=== PATIENT | female | born 1965 | race Caucasian/White ===

== ENCOUNTER 2018-01-27 10:25 | Outpatient (CLI) | payer OTHER ==
[~2018-01-27 10:25] MED LIST: ATE25T PO; ATOR20TA66 PO; BISA10SU60 RC; BUSP15TA12 PO; CALC-854 PO; CETI-194 PO; CHOL400T14 PO; CYCL-1 PO; ESOM20CA PO; HYDR-569 PO; LIDO700A5 TOP; MELA3TAB PO; MULT-785 PO; SUCR1ORA2 PO; VITC500T PO
[2018-01-27 11:30] LABS: CLARITY,URINE Clear (Clear); COLOR,URINE Yellow (Yellow); GLUCOSE, URINE Negative (Neg); KETONES,URINE Negative (Neg); LEUKOCYTE ESTERASE ,URINE Negative (Neg); NITRITES, URINE Negative (Neg); OCCULT BLOOD,URINE Negative (Neg); PH,URINE 7.5 (4.8-8.0); PROTEIN,URINE Negative (Neg); UROBILINOGEN,URINE 0.2 E.U/dL (0.2-1.0)
[2018-01-27 11:31] LABS: HEMOGLOBIN A1C 5.9 % (4.5-6.2)
[2018-01-27 11:35] LABS: ALANINE AMINOTRANSFERASE 31 U/L (12-78); ASPARTATE AMINO TRANSFERASE 18 U/L (10-37); CHOL/HDL RATIO 4.4 (0.00-4.99); CHOLESTEROL 169 MG/DL (0-200); HDL CHOLESTEROL 38 MG/DL (35-60); LDL CHOLESTEROL 101 MG/DL (50-100); TRIGLYCERIDES 259 MG/DL (20-135)
[2018-01-27 11:36] LABS: UA COLLECTION TYPE CLN CATCH MIDSTREAM
== END 2018-01-27 23:59 | disposition home or self-care (01) ==
LOC: LAB 10:25
PROVIDERS: ATTEND Family Medicine
DX: E78.2 Mixed hyperlipidemia (principal); I10 Essential (primary) hypertension; E83.52 Hypercalcemia; K76.89 Other specified diseases of liver; J44.9 Chronic obstructive pulmonary disease, unspecified; F17.200 Nicotine dependence, unspecified, uncomplicated; R73.09 Other abnormal glucose
CPT/HCPCS: 36415; 80061; 81003; 82306; 83036; 84450; 84460

== ENCOUNTER 2018-04-08 11:21 | Outpatient (CLI) | payer OTHER ==
[2018-04-08 12:14] LABS: ALANINE AMINOTRANSFERASE 38 U/L (12-78); ASPARTATE AMINO TRANSFERASE 22 U/L (10-37); CHOL/HDL RATIO 4.7 (0.00-4.99); CHOLESTEROL 183 MG/DL (0-200); HDL CHOLESTEROL 39 MG/DL (35-60); LDL CHOLESTEROL 109 MG/DL (50-100); TRIGLYCERIDES 209 MG/DL (20-135)
== END 2018-04-08 23:59 | disposition home or self-care (01) ==
LOC: LAB 11:21
PROVIDERS: ATTEND Family Medicine
DX: K76.89 Other specified diseases of liver (principal); E78.2 Mixed hyperlipidemia; F17.200 Nicotine dependence, unspecified, uncomplicated; I10 Essential (primary) hypertension; J44.9 Chronic obstructive pulmonary disease, unspecified; Z79.899 Other long term (current) drug therapy; Z90.710 Acquired absence of both cervix and uterus; Z88.0 Allergy status to penicillin; Z88.2 Allergy status to sulfonamides; Z88.8 Allergy status to other drugs, medicaments and biological substances
CPT/HCPCS: 36415; 80061; 84450; 84460

== ENCOUNTER 2018-11-14 10:59 | Outpatient (CLI) | payer OTHER ==
[~2018-11-14 10:59] MED LIST changes: +HYDR-4383 PO; -HYDR-569 PO
== END 2018-11-14 23:59 | disposition home or self-care (01) ==
LOC: RAD 10:59
PROVIDERS: ATTEND Family Medicine
DX: R06.02 Shortness of breath (principal); J44.9 Chronic obstructive pulmonary disease, unspecified; I10 Essential (primary) hypertension; Z90.710 Acquired absence of both cervix and uterus; Z79.899 Other long term (current) drug therapy; Z87.891 Personal history of nicotine dependence
CPT/HCPCS: 71046

== ENCOUNTER 2018-11-18 22:59 | Emergency (ER) | payer OTHER ==
[~2018-11-18] VITALS: Ht 172.7 cm; Wt 104.3 kg
[2018-11-18 23:19] VITALS: BP 158/92
== END 2018-11-19 00:19 | disposition home or self-care (01) ==
LOC: ER 22:59
DX: K13.79 Other lesions of oral mucosa (principal)
CPT/HCPCS: 99281

== ENCOUNTER 2019-01-01 11:14 | Outpatient (CLI) | payer OTHER ==
[2019-01-01 12:15] LABS: ALANINE AMINOTRANSFERASE 39 U/L (12-78); ALBUMIN 3.9 G/DL (3.4-5.0); ALBUMIN/GLOBULIN RATIO 1.2 (1.1-1.5); ALKALINE PHOSPHATASE 137 IU/L (46-116); ANION GAP 9 (8-16); ASPARTATE AMINO TRANSFERASE 20 U/L (10-37); BILIRUBIN,TOTAL 0.4 MG/DL (0.1-1.0); BLOOD UREA NITROGEN 15 MG/DL (7-18); BUN/CREATININE RATIO 22.7 (6.6-38.0); CALCIUM 9.1 MG/DL (8.5-10.1); CHLORIDE 105 MMOL/L (99-107); CHOL/HDL RATIO 4.1 (0.00-4.99); CHOLESTEROL 152 MG/DL (0-200); CREATININE 0.66 MG/DL (0.40-0.90); GLUCOSE 103 MG/DL (70-104); HDL CHOLESTEROL 37 MG/DL (35-60); LDL CHOLESTEROL 93 MG/DL (50-100); POTASSIUM 3.8 MMOL/L (3.5-5.1); SODIUM 140 MMOL/L (135-145); TOTAL CARBON DIOXIDE 26.1 MMOL/L (24-32); TOTAL PROTEIN 7.2 G/DL (6.4-8.2); TRIGLYCERIDES 176 MG/DL (20-135); eGFR > 90 ML/MIN
== END 2019-01-01 23:59 | disposition home or self-care (01) ==
LOC: LAB 11:14
PROVIDERS: ATTEND General Practice
DX: R78.5 Finding of other psychotropic drug in blood (principal); I10 Essential (primary) hypertension; J44.9 Chronic obstructive pulmonary disease, unspecified; Z87.891 Personal history of nicotine dependence
CPT/HCPCS: 36415; 80053; 80061

== ENCOUNTER 2019-05-06 07:56 | Day surgery (SDC) | payer OTHER ==
[2019-04-30 11:08] LABS: PRE OP HEMOGLOBIN 13.5 g/dL (12.0-16.0); RED BLOOD COUNT 4.57 X10'6 (4.20-5.60)
[2019-04-30 11:11] LABS: BASOPHILS # (AUTO) 0.1 X10'3 (0-0.2); EOSINOPHILS # (AUTO) 0.2 X10'3 (0-0.9); EOSINOPHILS % (AUTO) 2.9 % (0-6); LYMPHOCYTES # (AUTO) 2.8 X10'3 (1.1-4.8); LYMPHOCYTES % (AUTO) 35.5 % (21-51); MEAN CORPUSCULAR HEMOGLOBIN 29.4 PG (27.0-31.0); MEAN CORPUSCULAR HGB CONC 34.4 g/dL (33.0-36.5); MEAN CORPUSCULAR VOLUME 85.6 FL (78-98); MEAN PLATELET VOLUME 9.8 FL (7.4-10.4); MONOCYTES # (AUTO) 0.6 X10'3 (0-0.9); MONOCYTES % (AUTO) 8.3 % (2-12); NEUTROPHILS # (AUTO) 4.1 X10'3 (1.8-7.7); NEUTROPHILS % (AUTO) 52.3 % (42-75); PRE OP HEMATOCRIT 39.1 % (35.0-45.0); PRE OP PLATELET COUNT 235 X10'3 (140-440); RED CELL DISTRIBUTION WIDTH 14.3 % (11.5-14.5)
[2019-04-30 11:18] LABS: ALBUMIN 3.8 G/DL (3.4-5.0); ALBUMIN/GLOBULIN RATIO 1.1 (1.1-1.5); ALKALINE PHOSPHATASE 107 IU/L (46-116); BLOOD UREA NITROGEN 19 MG/DL (7-18); BUN/CREATININE RATIO 25.3 (6.6-38.0); CALCIUM 9.3 MG/DL (8.5-10.1); CHLORIDE 104 MMOL/L (99-107); CREATININE 0.75 MG/DL (0.40-0.90); PRE OP ALT 54 U/L (30-65); PRE OP ANION GAP 8 (8-16); PRE OP AST 29 U/L (10-37); PRE OP BILIRUB, TOTAL 0.4 MG/DL (0.0-1.0); PRE OP GLUCOSE 99 MG/DL (70-104); PRE OP POTASSIUM 4.1 MMOL/L (3.4-5.1); PRE OP SODIUM 141 MMOL/L (135-145); TOTAL PROTEIN 7.2 G/DL (6.4-8.2); eGFR 80 ML/MIN
[~2019-05-06] VITALS: Ht 172.7 cm; Wt 114.3 kg
[~2019-05-06 07:56] MED LIST changes: -BISA10SU60 RC; -CYCL-1 PO; -ESOM20CA PO; +FLUT16SP2 BOTHNARES; -HYDR-4383 PO; +IBUP-1986 PO; +LEVO75TA PO; -LIDO700A5 TOP; -MELA3TAB PO; +MELA3TAB64 PO; +OMEP-50 PO; -SUCR1ORA2 PO; +TRIA15OI9 TOP
[2019-05-06 08:00] VITALS: BP 130/83
[2019-05-06] MEDS ORDERED: DOCUMENT DATE & TIME OF BETA-BLOCKER PO ONE (11:15)
[2019-05-06] MEDS ORDERED: cefazolin/dext.iso 2gm/50ml 50 ML IV ONE (11:15)
[2019-05-06] MEDS ORDERED: ringers solution, lacted 1,000 ML IV SCH ×2 (11:15→12:51)
[2019-05-06] MEDS ORDERED: famotidine 20mg tablet PO ONE (11:15)
[2019-05-06] MEDS ORDERED: BUPIVAcaine/PF 2.5mg/ml (0.25%) 10ml vial ONE (11:16)
[2019-05-06] MEDS ORDERED: LIDOcaine 0.5% (5mg/ml) 50ml vial ONE (11:45)
[2019-05-06] MEDS ORDERED: fentaNYL/PF 50MCG/1 ML 2ML syringe ONE (11:46)
[2019-05-06] MEDS ORDERED: MIDAZolam 5mg/5ml vial ONE (12:01)
[2019-05-06] MEDS ORDERED: propofol inj 20 ML IV ONE (12:29)
[2019-05-06 12:31] VITALS: BP 130/70
--- NOTE | 2019-05-06 12:31 | NUR ---
Received from OR via FERNY, accompanied by Anesthesiologist DR LIANG and report given by Anesthesiologist. PT AWAKE, DENIES PAIN, LEFT HAND/WRIST W/DRSG, JULES WRAP, SOFT SPLINT COVERING INCISION, CDI. FIRE APPARATUS ENGINEER 1-2 SECONDS, FINGERS PWD. Addendum: 05/06/19 at 1408 by Mariaelena Pearce RN Amended: Links added.
[2019-05-06 12:41] VITALS: BP 135/72
[2019-05-06 12:51] VITALS: BP 122/61
[2019-05-06] MEDS ORDERED: meperidine/PF 25mg/ml syringe IV PRN ×3 (12:55)
[2019-05-06] MEDS ORDERED: proCHLORperazine 10 MG/2 ml inj IV PRN (12:55)
[2019-05-06] MEDS ORDERED: ondansetron/PF 4mg/2ml inj IV PRN (12:55)
[2019-05-06] MEDS ORDERED: morphine 4 MG/ML inj SYRINge IV PRN ×2 (12:55)
[2019-05-06 13:01] VITALS: BP 128/69
--- NOTE | 2019-05-06 13:11 | NUR ---
D/C INSTRUCTIONS GIVEN AND GONE OVER W/PT, PT VERBALIZES UNDERSTANDING, D/CD TO HOME VIA W/C TO PRIVATE VEHICLE W/O INCIDENT. Addendum: 05/06/19 at 1412 by Mariaelena Pearce RN Amended: Links added.
== END 2019-05-06 13:11 | disposition home or self-care (01) ==
LOC: PAS 07:56
PROVIDERS: ATTEND Orthopaedic Surgery
DX: G56.03 Carpal tunnel syndrome, bilateral upper limbs (principal); I10 Essential (primary) hypertension; F32.9 Major depressive disorder, single episode, unspecified; F41.9 Anxiety disorder, unspecified; K21.9 Gastro-esophageal reflux disease without esophagitis; E66.9 Obesity, unspecified; Z68.38 Body mass index [BMI] 38.0-38.9, adult; Z87.891 Personal history of nicotine dependence; Z88.0 Allergy status to penicillin; Z86.19 Personal history of other infectious and parasitic diseases; Z98.890 Other specified postprocedural states; Z90.49 Acquired absence of other specified parts of digestive tract; Z79.899 Other long term (current) drug therapy
CPT/HCPCS: 36415; 64721; 80053; 85025; 93005; J2001; J2250; J2704; J3010; J3490; A4215; A4618; A6449; A7000; J7120

== ENCOUNTER 2019-07-08 13:44 | Day surgery (SDC) | payer OTHER ==
[2019-07-02 15:11] LABS: BASOPHILS # (AUTO) 0.1 X10'3 (0-0.2); BASOPHILS % (AUTO) 1.1 % (0-1); EOSINOPHILS # (AUTO) 0.2 X10'3 (0-0.9); LYMPHOCYTES # (AUTO) 2.9 X10'3 (1.1-4.8); MEAN CORPUSCULAR HEMOGLOBIN 29.9 PG (27.0-31.0); MEAN CORPUSCULAR HGB CONC 34.5 g/dL (33.0-36.5); MEAN CORPUSCULAR VOLUME 86.9 FL (78-98); MEAN PLATELET VOLUME 9.6 FL (7.4-10.4); MONOCYTES # (AUTO) 0.6 X10'3 (0-0.9); MONOCYTES % (AUTO) 7.1 % (2-12); NEUTROPHILS % (AUTO) 56.8 % (42-75); PRE OP HEMATOCRIT 41.1 % (35.0-45.0); PRE OP HEMOGLOBIN 14.1 g/dL (12.0-16.0); PRE OP PLATELET COUNT 255 X10'3 (140-440); RED BLOOD COUNT 4.72 X10'6 (4.20-5.60)
[2019-07-02 15:28] LABS: ALBUMIN 3.9 G/DL (3.4-5.0); ALKALINE PHOSPHATASE 119 IU/L (46-116); BLOOD UREA NITROGEN 20 MG/DL (7-18); BUN/CREATININE RATIO 27.8 (6.6-38.0); CALCIUM 8.7 MG/DL (8.5-10.1); CHLORIDE 104 MMOL/L (99-107); CREATININE 0.72 MG/DL (0.40-0.90); PRE OP ALT 38 U/L (30-65); PRE OP ANION GAP 8 (8-16); PRE OP BILIRUB, TOTAL 0.4 MG/DL (0.0-1.0); PRE OP POTASSIUM 4.1 MMOL/L (3.4-5.1); PRE OP SODIUM 138 MMOL/L (135-145); TOTAL PROTEIN 7.7 G/DL (6.4-8.2); eGFR 84 ML/MIN
[2019-07-02 15:29] LABS: PRE OP AST 20 U/L (10-37); PRE OP GLUCOSE 106 MG/DL (70-104)
[2019-07-02 15:30] LABS: PRE OP INR 0.9 INR; PRE OP PROTIME 9.9 SECONDS (9.0-12.0)
[~2019-07-08] VITALS: Ht 170.2 cm; Wt 115.1 kg
[~2019-07-08 13:44] MED LIST changes: +DOCUMENT DATE & TIME OF BETA-BLOCKER PO ONE; +ESTR0.5T PO; +albuterol 2.5 MG/3 ML nebule NEB ONE; +cefazolin/dext.iso 2gm/50ml 50 ML IV ONE; +famotidine 20mg tablet PO ONE; +ringers solution, lacted 1,000 ML IV ONE
[2019-07-08] MEDS ORDERED: ringers solution, lacted 1,000 ML IV SCH (14:07)
[2019-07-08] MEDS ORDERED: proCHLORperazine 10 MG/2 ml inj IV PRN (14:10)
[2019-07-08] MEDS ORDERED: morphine 4 MG/ML inj SYRINge IV PRN ×2 (14:10)
[2019-07-08] MEDS ORDERED: ondansetron/PF 4mg/2ml inj IV PRN (14:10)
[2019-07-08] MEDS ORDERED: meperidine/PF 25mg/ml syringe IV PRN ×3 (14:10)
[2019-07-08 14:43] VITALS: BP 115/55
[2019-07-08 14:54] VITALS: BP 115/55
[2019-07-08] MEDS ORDERED: BUPIVAcaine/PF 2.5 mg/ml (0.25%) 30ml vial ONE (16:08)
[2019-07-08] MEDS ORDERED: ceFAZolin 1000mg inj ONE (16:08)
[2019-07-08] MEDS ORDERED: MIDAZolam 5mg/5ml vial ONE ×2 (18:13→18:29)
[2019-07-08] MEDS ORDERED: fentaNYL/PF 50MCG/1 ML 2ML syringe ONE ×2 (18:13→18:27)
[2019-07-08] MEDS ORDERED: 0.9 % SODIUM CHLORIDE 10 ML VIAL ONE (18:22)
[2019-07-08] MEDS ORDERED: ketorolac trometh. 30mg/ml inj. ONE (18:22)
[2019-07-08] MEDS ORDERED: propofol inj 20 ML IV ONE (18:40)
[2019-07-08] MEDS ORDERED: LIDOcaine 1%/PF 5ML 10 MG/ML VIAL ONE (18:40)
[2019-07-08 18:51] VITALS: BP 147/96
--- NOTE | 2019-07-08 18:51 | NUR ---
Received from OR via FERNY , accompanied by Anesthesiologist NOY and report given by Anesthesiolgist. PATIENT WITH 20G PIV IN LEFT UE RUNNING LR AT 100. DENIES PAIN. + CAP REFILL TO RIGHT WRIST AREA. DONNED ICE UPON ARRIVAL AND HAD PATIENT ELEVATED RIGHT WRIST. PATIENT VSS AT THIS TIME. Addendum: 07/08/19 at 1904 by Sunny Driver RN, RN Amended: Links added.
[2019-07-08 19:01] VITALS: BP 154/67
[2019-07-08 19:11] VITALS: BP 136/68
--- NOTE | 2019-07-08 19:21 | NUR ---
ALL DC CRITERIA HAS BEEN MET. IV TAKEN OUT WITHOUT COMPLICATIONS. ALL INSTRUCTIONS COVERED AND ALL QUESTIONS ANSWERED. DRESSINGS CDI. OUT VIA WHEELCHAIR TO PERSONAL VEHICLE WHERE PATIENT WAS SECURED IN AND DRIVEN HOME BY FAMILY. SISTER STATES THAT SHE WILL BE WITH HER ALL NIGHT. ENCOURAGED ELEVATION OF WRIST ABOVE ELBOW AND ELBOW ABOVE HEART WHILE WIGGLING FINGERS FOR EDEMA CONTROL AND PAIN CONTROL. Addendum: 07/08/19 at 1935 by Sunny Driver RN, RN Amended: Links added.
== END 2019-07-08 19:21 | disposition home or self-care (01) ==
LOC: PAS 13:44
PROVIDERS: ATTEND Orthopaedic Surgery
DX: G56.01 Carpal tunnel syndrome, right upper limb (principal); J44.9 Chronic obstructive pulmonary disease, unspecified; I10 Essential (primary) hypertension; F41.9 Anxiety disorder, unspecified; G47.00 Insomnia, unspecified; F32.9 Major depressive disorder, single episode, unspecified; E03.9 Hypothyroidism, unspecified; K21.9 Gastro-esophageal reflux disease without esophagitis; E66.01 Morbid (severe) obesity due to excess calories; Z87.891 Personal history of nicotine dependence; Z90.49 Acquired absence of other specified parts of digestive tract; Z98.890 Other specified postprocedural states; Z88.0 Allergy status to penicillin; Z86.19 Personal history of other infectious and parasitic diseases; Z72.89 Other problems related to lifestyle; Z79.899 Other long term (current) drug therapy; Z79.01 Long term (current) use of anticoagulants
CPT/HCPCS: 36415; 64721; 80053; 82948; 85025; 85610; 85730; 94640; J0690; J1885; J2250; J2704; J3010; J3490; A4215; A4618; A6449; A7000; J7120

== ENCOUNTER 2019-08-05 12:05 | Outpatient (CLI) | payer MEDICAID ==
[~2019-08-05 12:05] MED LIST changes: -DOCUMENT DATE & TIME OF BETA-BLOCKER PO ONE; -albuterol 2.5 MG/3 ML nebule NEB ONE; -cefazolin/dext.iso 2gm/50ml 50 ML IV ONE; -famotidine 20mg tablet PO ONE; -ringers solution, lacted 1,000 ML IV ONE
== END 2019-08-05 23:59 | disposition home or self-care (01) ==
LOC: RAD 12:05
PROVIDERS: ATTEND Family Medicine
DX: M50.123 Cervical disc disorder at C6-C7 level with radiculopathy (principal); M25.78 Osteophyte, vertebrae; M48.02 Spinal stenosis, cervical region; J44.9 Chronic obstructive pulmonary disease, unspecified; I10 Essential (primary) hypertension; Z87.891 Personal history of nicotine dependence
CPT/HCPCS: 72050

== ENCOUNTER 2019-08-15 15:29 | Emergency (ER) | payer MEDICAID ==
[~2019-08-15] VITALS: Ht 170.2 cm; Wt 116.0 kg
[2019-08-15 15:38] VITALS: BP 175/91
[2019-08-15] MEDS ORDERED: ketorolac tromethamine 15mg/ml inj. IM ONE (16:25)
[2019-08-15] MEDS ORDERED: IBUP-1984 PO (16:27)
[2019-08-15] MEDS ORDERED: CYCL-1 PO (16:27)
== END 2019-08-15 16:53 | disposition home or self-care (01) ==
LOC: ER 15:30
DX: M54.5 Low back pain (principal); E78.00 Pure hypercholesterolemia, unspecified; I10 Essential (primary) hypertension; J44.9 Chronic obstructive pulmonary disease, unspecified; G89.29 Other chronic pain; F41.9 Anxiety disorder, unspecified; Z90.49 Acquired absence of other specified parts of digestive tract; Z90.710 Acquired absence of both cervix and uterus; Z98.890 Other specified postprocedural states; Z60.2 Problems related to living alone; Z88.0 Allergy status to penicillin; Z88.2 Allergy status to sulfonamides; Z88.8 Allergy status to other drugs, medicaments and biological substances; Z79.899 Other long term (current) drug therapy
CPT/HCPCS: 96372; 99283; J1885

== ENCOUNTER 2019-10-15 18:05 | Emergency (ER) | payer MEDICAID ==
[~2019-10-15] VITALS: Ht 172.7 cm; Wt 115.0 kg
[~2019-10-15 18:05] MED LIST changes: +CYCL-1 PO
[2019-10-15 19:28] VITALS: BP 151/81
== END 2019-10-15 19:29 | disposition home or self-care (01) ==
LOC: ER 18:06 → MERGE 18:06 → ER 19:29
DX: S80.02XA Contusion of left knee, initial encounter (principal); J44.9 Chronic obstructive pulmonary disease, unspecified; Z87.891 Personal history of nicotine dependence; W01.10XA Fall on same level from slipping, tripping and stumbling with subsequent striking against unspecified object, initial encounter; Y93.01 Activity, walking, marching and hiking; Y92.89 Other specified places as the place of occurrence of the external cause; Y99.8 Other external cause status
CPT/HCPCS: 73564; 73590; 99284

== ENCOUNTER 2019-12-23 16:52 | Outpatient (CLI) | payer OTHER ==
[~2019-12-23 16:52] MED LIST changes: +MELA3TAB39 PO; -MELA3TAB64 PO
== END 2019-12-23 23:59 | disposition home or self-care (01) ==
LOC: RAD 16:52
PROVIDERS: ATTEND Family Medicine
DX: M47.22 Other spondylosis with radiculopathy, cervical region (principal); M48.02 Spinal stenosis, cervical region
CPT/HCPCS: 72141

== ENCOUNTER 2020-01-05 15:02 | Outpatient (CLI) | payer OTHER ==
[2020-01-05 15:48] LABS: BASOPHILS # (AUTO) 0.1 X10'3 (0-0.2); BASOPHILS % (AUTO) 1.1 % (0-1); EOSINOPHILS # (AUTO) 0.2 X10'3 (0-0.9); EOSINOPHILS % (AUTO) 1.9 % (0-6); HEMATOCRIT 40.7 % (35.0-45.0); HEMOGLOBIN 13.6 g/dl (12.0-16.0); LYMPHOCYTES % (AUTO) 35.6 % (21-51); MEAN CORPUSCULAR HEMOGLOBIN 28.9 PG (27.0-31.0); MEAN CORPUSCULAR HGB CONC 33.5 g/dL (33.0-36.5); MEAN CORPUSCULAR VOLUME 86.2 FL (78-98); MEAN PLATELET VOLUME 10.1 FL (7.4-10.4); MONOCYTES # (AUTO) 0.5 X10'3 (0-0.9); MONOCYTES % (AUTO) 6.3 % (2-12); NEUTROPHILS # (AUTO) 4.6 X10'3 (1.8-7.7); NEUTROPHILS % (AUTO) 55.1 % (42-75); PLATELET COUNT 239 X10'3 (140-440); RED BLOOD COUNT 4.72 X10'6 (4.20-5.60); WHITE BLOOD COUNT 8.3 X10'3 (4.5-11.0)
[2020-01-05 16:14] LABS: C-REACTIVE PROTEIN 0.1 MG/DL (0.0-0.5)
== END 2020-01-05 23:59 | disposition home or self-care (01) ==
LOC: LAB 15:02
PROVIDERS: ATTEND Family Medicine
DX: M47.816 Spondylosis without myelopathy or radiculopathy, lumbar region (principal)
CPT/HCPCS: 36415; 84439; 84443; 85025; 85651; 86140

== ENCOUNTER 2020-01-11 16:45 | Outpatient (CLI) | payer OTHER | END 2020-01-11 23:59 | disposition home or self-care (01) | LOC: LAB 16:45 | PROVIDERS: ATTEND Family Medicine | DX: Z00.00 Encounter for general adult medical examination without abnormal findings (principal); Z53.21 Procedure and treatment not carried out due to patient leaving prior to being seen by health care provider ==

== ENCOUNTER 2020-01-31 09:13 | Emergency (ER) | payer OTHER ==
[~2020-01-31] VITALS: Ht 172.7 cm; Wt 109.0 kg
[2020-01-31] MEDS ORDERED: normal saline 1000ML IV soln IVB ONE (10:10)
[2020-01-31] MEDS ORDERED: ondansetron/PF 4mg/2ml inj IV ONE (10:10)
[2020-01-31 10:19] LABS: CLARITY,URINE CLOUDY (Clear); COLOR,URINE YELLOW (Yellow); GLUCOSE, URINE NEGATIVE (Neg); KETONES,URINE NEGATIVE (Neg); LEUKOCYTE ESTERASE ,URINE NEGATIVE (Neg); NITRITES, URINE NEGATIVE (Neg); OCCULT BLOOD,URINE NEGATIVE (Neg); PH,URINE 5.5 (4.8-8.0); PROTEIN,URINE NEGATIVE (Neg); UROBILINOGEN,URINE 0.2 E.U/dL (0.2-1.0)
[2020-01-31 10:23] LABS: UA COLLECTION TYPE CLN CATCH MIDSTREAM
[2020-01-31 10:31] LABS: BACTERIA,URINE 4+ /HPF (Neg); MUCUS STRANDS FEW /LPF (Neg); RBC,URINE 0-2 /HPF (0-2); SQUAMOUS EPITHELIAL CELL,UR MANY /LPF (FEW); WBC,URINE 0-4 /HPF (0-4)
[2020-01-31 10:42] LABS: BASOPHILS # (AUTO) 0.1 X10'3 (0-0.2); BASOPHILS % (AUTO) 0.8 % (0-1); EOSINOPHILS # (AUTO) 0.2 X10'3 (0-0.9); HEMATOCRIT 44.1 % (35.0-45.0); HEMOGLOBIN 14.6 g/dl (12.0-16.0); LYMPHOCYTES # (AUTO) 3.2 X10'3 (1.1-4.8); LYMPHOCYTES % (AUTO) 39.9 % (21-51); MEAN CORPUSCULAR HEMOGLOBIN 28.7 PG (27.0-31.0); MEAN CORPUSCULAR HGB CONC 33.2 g/dL (33.0-36.5); MEAN CORPUSCULAR VOLUME 86.6 FL (78-98); MONOCYTES # (AUTO) 0.6 X10'3 (0-0.9); MONOCYTES % (AUTO) 7.7 % (2-12); NEUTROPHILS % (AUTO) 49.6 % (42-75); PLATELET COUNT 273 X10'3 (140-440); RED BLOOD COUNT 5.09 X10'6 (4.20-5.60); RED CELL DISTRIBUTION WIDTH 13.8 % (11.5-14.5)
[2020-01-31 10:54] LABS: ALANINE AMINOTRANSFERASE 44 U/L (12-78); ALBUMIN 3.6 G/DL (3.4-5.0); ALKALINE PHOSPHATASE 108 IU/L (46-116); ANION GAP 9 (8-16); ASPARTATE AMINO TRANSFERASE 23 U/L (10-37); BILIRUBIN,TOTAL 0.4 MG/DL (0.1-1.0); BLOOD UREA NITROGEN 18 MG/DL (7-18); BUN/CREATININE RATIO 21.7 (6.6-38.0); CALCIUM 8.6 MG/DL (8.5-10.1); CHLORIDE 106 MMOL/L (99-107); CREATININE 0.83 MG/DL (0.40-0.90); GLUCOSE 107 MG/DL (70-104); LIPASE 86 U/L (73-393); POTASSIUM 4.3 MMOL/L (3.5-5.1); SODIUM 141 MMOL/L (135-145); TOTAL CARBON DIOXIDE 26.5 MMOL/L (24-32); TOTAL PROTEIN 7.1 G/DL (6.4-8.2); eGFR 71 ML/MIN
[2020-01-31] MEDS ORDERED: ONDA8TAB13 PO (11:17)
[2020-01-31 11:28] VITALS: BP 120/67
== END 2020-01-31 11:29 | disposition home or self-care (01) ==
LOC: EEVIPCON 09:13 → ER 09:13
DX: R11.2 Nausea with vomiting, unspecified (principal); R10.84 Generalized abdominal pain; E78.00 Pure hypercholesterolemia, unspecified; I10 Essential (primary) hypertension; J44.9 Chronic obstructive pulmonary disease, unspecified; G89.29 Other chronic pain; F41.9 Anxiety disorder, unspecified; Z90.49 Acquired absence of other specified parts of digestive tract; Z90.710 Acquired absence of both cervix and uterus; Z98.890 Other specified postprocedural states; Z60.2 Problems related to living alone; Z87.891 Personal history of nicotine dependence; Z88.0 Allergy status to penicillin; Z79.899 Other long term (current) drug therapy; Z88.8 Allergy status to other drugs, medicaments and biological substances
CPT/HCPCS: 36415; 74176; 80053; 81001; 83690; 85025; 96374; 99284; J2405; J7030

== ENCOUNTER 2020-02-09 15:20 | Outpatient (CLI) | payer OTHER ==
[~2020-02-09 15:20] MED LIST changes: +ONDA8TAB13 PO
[2020-02-09 15:54] LABS: BASOPHILS # (AUTO) 0.1 X10'3 (0-0.2); BASOPHILS % (AUTO) 1.2 % (0-1); EOSINOPHILS # (AUTO) 0.2 X10'3 (0-0.9); EOSINOPHILS % (AUTO) 2.6 % (0-6); HEMATOCRIT 40.1 % (35.0-45.0); HEMOGLOBIN 13.3 g/dl (12.0-16.0); LYMPHOCYTES # (AUTO) 2.5 X10'3 (1.1-4.8); LYMPHOCYTES % (AUTO) 34.3 % (21-51); MEAN CORPUSCULAR HEMOGLOBIN 28.8 PG (27.0-31.0); MEAN CORPUSCULAR HGB CONC 33.2 g/dL (33.0-36.5); MEAN CORPUSCULAR VOLUME 86.6 FL (78-98); MEAN PLATELET VOLUME 9.6 FL (7.4-10.4); MONOCYTES # (AUTO) 0.6 X10'3 (0-0.9); NEUTROPHILS # (AUTO) 3.9 X10'3 (1.8-7.7); NEUTROPHILS % (AUTO) 53.9 % (42-75); PLATELET COUNT 263 X10'3 (140-440); RED BLOOD COUNT 4.63 X10'6 (4.20-5.60); RED CELL DISTRIBUTION WIDTH 13.8 % (11.5-14.5); WHITE BLOOD COUNT 7.3 X10'3 (4.5-11.0)
[2020-02-09 16:03] LABS: ALANINE AMINOTRANSFERASE 37 U/L (12-78); ALBUMIN 3.6 G/DL (3.4-5.0); ALBUMIN/GLOBULIN RATIO 1.2 (1.1-1.5); ALKALINE PHOSPHATASE 95 IU/L (46-116); ANION GAP 9 (8-16); ASPARTATE AMINO TRANSFERASE 17 U/L (10-37); BILIRUBIN,TOTAL 0.2 MG/DL (0.1-1.0); BLOOD UREA NITROGEN 27 MG/DL (7-18); BUN/CREATININE RATIO 34.6 (6.6-38.0); C-REACTIVE PROTEIN 0.24 MG/DL (0.0-0.5); CALCIUM 8.7 MG/DL (8.5-10.1); CHLORIDE 107 MMOL/L (99-107); CHOL/HDL RATIO 8.4 (0.00-4.99); CHOLESTEROL 234 MG/DL (0-200); CREATININE 0.78 MG/DL (0.40-0.90); GLUCOSE 99 MG/DL (70-104); HDL CHOLESTEROL 28 MG/DL (35-60); LDL CHOLESTEROL 136 MG/DL (50-100); POTASSIUM 3.8 MMOL/L (3.5-5.1); SODIUM 142 MMOL/L (135-145); TOTAL CARBON DIOXIDE 25.8 MMOL/L (24-32); TOTAL PROTEIN 6.7 G/DL (6.4-8.2); TRIGLYCERIDES 498 MG/DL (20-135); eGFR 76 ML/MIN
== END 2020-02-09 23:59 | disposition home or self-care (01) ==
LOC: LAB 15:20
PROVIDERS: ATTEND Family Medicine
DX: E78.5 Hyperlipidemia, unspecified (principal); M54.2 Cervicalgia; I10 Essential (primary) hypertension; M47.816 Spondylosis without myelopathy or radiculopathy, lumbar region
CPT/HCPCS: 36415; 80053; 80061; 85025; 86140

== ENCOUNTER 2020-04-21 15:06 | Outpatient (CLI) | payer BC ==
[2020-04-21 16:25] LABS: ALANINE AMINOTRANSFERASE 31 U/L (12-78); ALBUMIN 3.7 G/DL (3.4-5.0); ALBUMIN/GLOBULIN RATIO 1.2 (1.1-1.5); ALKALINE PHOSPHATASE 93 IU/L (46-116); ANION GAP 7 (8-16); ASPARTATE AMINO TRANSFERASE 18 U/L (10-37); BILIRUBIN,TOTAL 0.3 MG/DL (0.1-1.0); BLOOD UREA NITROGEN 16 MG/DL (7-18); BUN/CREATININE RATIO 19.5 (6.6-38.0); CALCIUM 8.7 MG/DL (8.5-10.1); CHLORIDE 105 MMOL/L (99-107); CHOL/HDL RATIO 4.6 (0.00-4.99); CHOLESTEROL 157 MG/DL (0-200); CREATININE 0.82 MG/DL (0.40-0.90); GLUCOSE 93 MG/DL (70-104); HDL CHOLESTEROL 34 MG/DL (35-60); LDL CHOLESTEROL 92 MG/DL (50-100); POTASSIUM 3.9 MMOL/L (3.5-5.1); SODIUM 139 MMOL/L (135-145); TOTAL CARBON DIOXIDE 27.1 MMOL/L (24-32); TOTAL PROTEIN 6.8 G/DL (6.4-8.2); TRIGLYCERIDES 265 MG/DL (20-135); eGFR 72 ML/MIN
== END 2020-04-21 23:59 | disposition home or self-care (01) ==
LOC: LAB 15:06
PROVIDERS: ATTEND Family Medicine
DX: I10 Essential (primary) hypertension (principal); E78.5 Hyperlipidemia, unspecified
CPT/HCPCS: 36415; 80053; 80061

== ENCOUNTER 2020-08-31 15:30 | Outpatient (CLI) | payer BC ==
[2020-08-31 16:27] LABS: ALANINE AMINOTRANSFERASE 33 U/L (12-78); ALBUMIN 3.7 G/DL (3.4-5.0); ALBUMIN/GLOBULIN RATIO 1.1 (1.1-1.5); ALKALINE PHOSPHATASE 91 IU/L (46-116); ANION GAP 6 (8-16); ASPARTATE AMINO TRANSFERASE 19 U/L (10-37); BILIRUBIN,TOTAL 0.3 MG/DL (0.1-1.0); BLOOD UREA NITROGEN 20 MG/DL (7-18); BUN/CREATININE RATIO 22.2 (6.6-38.0); CALCIUM 8.7 MG/DL (8.5-10.1); CHLORIDE 104 MMOL/L (99-107); CHOL/HDL RATIO 4.7 (0.00-4.99); CHOLESTEROL 166 MG/DL (0-200); GLUCOSE 104 MG/DL (70-104); HDL CHOLESTEROL 35 MG/DL (35-60); LDL CHOLESTEROL 101 MG/DL (50-100); POTASSIUM 3.8 MMOL/L (3.5-5.1); SODIUM 140 MMOL/L (135-145); TOTAL CARBON DIOXIDE 30.1 MMOL/L (24-32); TRIGLYCERIDES 361 MG/DL (20-135); eGFR 65 ML/MIN
== END 2020-08-31 23:59 | disposition home or self-care (01) ==
LOC: LAB 15:30
PROVIDERS: ATTEND Family Medicine
DX: I10 Essential (primary) hypertension (principal); R04.2 Hemoptysis; R13.10 Dysphagia, unspecified; F43.21 Adjustment disorder with depressed mood; E78.5 Hyperlipidemia, unspecified
CPT/HCPCS: 36415; 71046; 80053; 80061; 83001

== ENCOUNTER 2020-11-22 07:06 | Day surgery (SDC) | payer BC ==
[~2020-11-22] VITALS: Ht 170.8 cm; Wt 109.1 kg
[2020-11-22 07:18] VITALS: BP 114/62
[2020-11-22] MEDS ORDERED: ATOR-2 PO (07:30)
[2020-11-22] MEDS ORDERED: BENZ-16 PO (07:34)
[2020-11-22] MEDS ORDERED: GABA300C PO (07:35)
[2020-11-22] MEDS ORDERED: DULO30CA52 PO (07:36)
[2020-11-22] MEDS ORDERED: TRAZ-251 PO (07:37)
[2020-11-22] MEDS ORDERED: LIDOcaine Viscous 15ml cup ONE (07:44)
[2020-11-22] MEDS ORDERED: MIDAZolam 1 MG/ML 5ML VIAL ONE (07:44)
[2020-11-22] MEDS ORDERED: fentaNYL/PF 50MCG/1 ML 2ML syringe ONE (07:44)
[2020-11-22 09:10] VITALS: BP 111/68
[2020-11-22 09:20] VITALS: BP 106/70
[2020-11-22 09:30] VITALS: BP 117/73
[2020-11-22 09:40] VITALS: BP 115/72
== END 2020-11-22 10:02 | disposition home or self-care (01) ==
LOC: GI LAB 07:06
PROVIDERS: ATTEND Internal Medicine Gastroenterology
DX: R10.13 Epigastric pain (principal); K52.9 Noninfective gastroenteritis and colitis, unspecified; K63.89 Other specified diseases of intestine; J44.9 Chronic obstructive pulmonary disease, unspecified; Z87.891 Personal history of nicotine dependence; Z86.19 Personal history of other infectious and parasitic diseases
CPT/HCPCS: 43239; 45380; 99152; 99153; J2250; J3010; J7040; A4620

== ENCOUNTER 2021-01-12 15:26 | Outpatient (CLI) | payer BC ==
[~2021-01-12 15:26] MED LIST changes: +ATOR-2 PO; -ATOR20TA66 PO; +BENZ-16 PO; -CYCL-1 PO; +DULO30CA52 PO; +GABA300C PO; -MELA3TAB39 PO; -ONDA8TAB13 PO; +TRAZ-251 PO
== END 2021-01-12 23:59 | disposition home or self-care (01) ==
LOC: 64 CT 15:26
PROVIDERS: ATTEND Family Medicine
DX: J44.9 Chronic obstructive pulmonary disease, unspecified (principal)
CPT/HCPCS: 71250

== ENCOUNTER 2021-01-30 08:17 | Outpatient (CLI) | payer BC ==
[2021-01-30 08:58] LABS: BASOPHILS # (AUTO) 0.1 X10'3 (0-0.2); BASOPHILS % (AUTO) 0.7 % (0-1); EOSINOPHILS # (AUTO) 0.2 X10'3 (0-0.9); EOSINOPHILS % (AUTO) 2.2 % (0-6); HEMATOCRIT 39.8 % (35.0-45.0); HEMOGLOBIN 13.4 g/dl (12.0-16.0); LYMPHOCYTES # (AUTO) 2.4 X10'3 (1.1-4.8); MEAN CORPUSCULAR HEMOGLOBIN 29.1 PG (27.0-31.0); MEAN CORPUSCULAR HGB CONC 33.6 g/dL (33.0-36.5); MEAN CORPUSCULAR VOLUME 86.7 FL (78-98); MEAN PLATELET VOLUME 9.5 FL (7.4-10.4); MONOCYTES # (AUTO) 0.6 X10'3 (0-0.9); NEUTROPHILS # (AUTO) 4.7 X10'3 (1.8-7.7); NEUTROPHILS % (AUTO) 59.1 % (42-75); PLATELET COUNT 275 X10'3 (140-440); RED BLOOD COUNT 4.59 X10'6 (4.20-5.60); RED CELL DISTRIBUTION WIDTH 13.7 % (11.5-14.5)
[2021-01-30 10:16] LABS: ALANINE AMINOTRANSFERASE 36 U/L (12-78); ALBUMIN 3.7 G/DL (3.4-5.0); ALKALINE PHOSPHATASE 94 IU/L (46-116); ANION GAP 8 (8-16); ASPARTATE AMINO TRANSFERASE 16 U/L (10-37); BILIRUBIN,TOTAL 0.3 MG/DL (0.1-1.0); BLOOD UREA NITROGEN 16 MG/DL (7-18); BUN/CREATININE RATIO 23.2 (6.6-38.0); C-REACTIVE PROTEIN 0.35 MG/DL (0.0-0.5); CALCIUM 9.1 MG/DL (8.5-10.1); CHLORIDE 105 MMOL/L (99-107); CHOL/HDL RATIO 4.9 (0.00-4.99); CHOLESTEROL 188 MG/DL (0-200); CREATINE KINASE 110 U/L (26-192); CREATININE 0.69 MG/DL (0.40-0.90); GLUCOSE 94 MG/DL (70-104); HDL CHOLESTEROL 38 MG/DL (35-60); LDL CHOLESTEROL 105 MG/DL (50-100); POTASSIUM 4.2 MMOL/L (3.5-5.1); SODIUM 140 MMOL/L (135-145); TOTAL CARBON DIOXIDE 27.4 MMOL/L (24-32); TOTAL PROTEIN 7.4 G/DL (6.4-8.2); TRIGLYCERIDES 281 MG/DL (20-135); eGFR 88 ML/MIN
== END 2021-01-30 23:59 | disposition home or self-care (01) ==
LOC: LAB 08:17
PROVIDERS: ATTEND Family Medicine
DX: I10 Essential (primary) hypertension (principal); M47.816 Spondylosis without myelopathy or radiculopathy, lumbar region; M54.2 Cervicalgia; F41.8 Other specified anxiety disorders; E03.9 Hypothyroidism, unspecified; E78.5 Hyperlipidemia, unspecified; M19.90 Unspecified osteoarthritis, unspecified site
CPT/HCPCS: 36415; 80053; 80061; 82550; 84439; 84443; 84550; 85025; 85651; 86140

== ENCOUNTER 2021-02-22 11:14 | Day surgery (SDC) | payer BC ==
[2021-02-22] VITALS (11 sets, daily range): BP systolic 97–144; BP diastolic 53–98
[~2021-02-22] VITALS: Ht 172.7 cm; Wt 109.0 kg
[2021-02-22] MEDS ORDERED: MIDAZolam 1mg/ml 10ml vial IV ONE (11:50)
[2021-02-22] MEDS ORDERED: fentaNYL/PF 50MCG/1 ML 2ML syringe IV ONE ×2 (11:50→16:00)
[2021-02-22] MEDS ORDERED: ALBU90AE (12:00)
[2021-02-22] MEDS ORDERED: SERT-434 PO (12:00)
[2021-02-22] MEDS ORDERED: FENO54TA PO (12:00)
[2021-02-22] MEDS ORDERED: MONT10TA32 PO (12:00)
[2021-02-22] MEDS ORDERED: VITAMIN B12 PO (12:02)
[2021-02-22] MEDS ORDERED: ACET-1025 PO (12:02)
[2021-02-22] MEDS ORDERED: albuterol 2.5 MG/3 ML nebule ONE (13:29)
[2021-02-22] MEDS ORDERED: racepinephrine 11.25mg/0.5ml nebule ONE (13:29)
[2021-02-22] MEDS ORDERED: epiNEPHrine 1 MG/ML 1 ml ampule **BRONCH ONLY ONE (13:29)
[2021-02-22] MEDS ORDERED: lidocaine 2% viscous 15 ML cup ***bronch room only MM ONE (13:30)
[2021-02-22] MEDS ORDERED: LIDOCAINE 4% (40MG/ML) topical solution 50ml **BRONCH ONLY ONE (13:30)
[2021-02-22] MEDS ORDERED: phenylephrine 1% Nasal spray (extra-strength) 15 ML bottle **bronch room NS ONE (13:30)
[2021-02-22] MEDS ORDERED: MIDAZolam 1 MG/ML 5ML VIAL ONE (14:00)
[2021-02-22] MEDS ORDERED: fentaNYL/PF 50MCG/1 ML 2ML syringe ONE ×3 (14:00→15:12)
--- NOTE | 2021-02-22 15:05 | NUR ---
POST SVN 2.5 MG ALBUTEROL NO SIGNIFICANT CHANGE POST TX, BS CLEAR, HR 70/69, RR 12/16, AND SPO2 97% ON R/A, THROUGH OUT BRONCH. HR 50-60, RR 10-16. Addendum: 02/22/21 at 1507 by Rafael Santos RT Amended: Links added.
== END 2021-02-22 16:15 | disposition home or self-care (01) ==
LOC: SSTAY O 11:14
PROVIDERS: ATTEND Internal Medicine Critical Care Medicine
DX: R04.2 Hemoptysis (principal); J98.09 Other diseases of bronchus, not elsewhere classified; C34.01 Malignant neoplasm of right main bronchus; E78.00 Pure hypercholesterolemia, unspecified; J43.9 Emphysema, unspecified; Z87.891 Personal history of nicotine dependence; Z79.899 Other long term (current) drug therapy; Z88.8 Allergy status to other drugs, medicaments and biological substances; Z88.0 Allergy status to penicillin; Z88.1 Allergy status to other antibiotic agents; Z98.890 Other specified postprocedural states; Z80.9 Family history of malignant neoplasm, unspecified
CPT/HCPCS: 31625; 31629; 94640; 99152; 99153; J0171; J2250; J3010; 31628; 94760

== ENCOUNTER 2021-03-24 06:27 | Inpatient (IN) | payer BC ==
[2021-03-23 10:41] LABS: BASOPHILS # (AUTO) 0.1 X10'3 (0-0.2); EOSINOPHILS # (AUTO) 0.2 X10'3 (0-0.9); EOSINOPHILS % (AUTO) 2.5 % (0-6); LYMPHOCYTES # (AUTO) 2.3 X10'3 (1.1-4.8); LYMPHOCYTES % (AUTO) 31.8 % (21-51); MEAN CORPUSCULAR HEMOGLOBIN 29.1 PG (27.0-31.0); MEAN CORPUSCULAR HGB CONC 33.5 g/dL (33.0-36.5); MEAN CORPUSCULAR VOLUME 86.6 FL (78-98); MONOCYTES # (AUTO) 0.6 X10'3 (0-0.9); MONOCYTES % (AUTO) 8.3 % (2-12); NEUTROPHILS # (AUTO) 4.2 X10'3 (1.8-7.7); NEUTROPHILS % (AUTO) 56.4 % (42-75); PRE OP HEMATOCRIT 40.9 % (35.0-45.0); PRE OP HEMOGLOBIN 13.7 g/dL (12.0-16.0); PRE OP PLATELET COUNT 262 X10'3 (140-440); RED BLOOD COUNT 4.73 X10'6 (4.20-5.60); RED CELL DISTRIBUTION WIDTH 13.5 % (11.5-14.5)
[2021-03-23 10:42] LABS: CLARITY,URINE SLIGHTLY CLOUDY (Clear); COLOR,URINE YELLOW (Yellow); GLUCOSE, URINE NEGATIVE (Neg); KETONES,URINE NEGATIVE (Neg); LEUKOCYTE ESTERASE ,URINE NEGATIVE (Neg); NITRITES, URINE NEGATIVE (Neg); OCCULT BLOOD,URINE NEGATIVE (Neg); PH,URINE 7.5 (4.8-8.0); PROTEIN,URINE NEGATIVE (Neg); UROBILINOGEN,URINE 0.2 E.U/dL (0.2-1.0)
[2021-03-23 10:47] LABS: UA COLLECTION TYPE CLN CATCH MIDSTREAM
[2021-03-23 10:51] LABS: MUCUS STRANDS FEW /LPF (Neg); SQUAMOUS EPITHELIAL CELL,UR FEW /LPF (FEW)
[2021-03-23 10:52] LABS: BACTERIA,URINE NONE SEEN /HPF (Neg); RBC,URINE 0-2 /HPF (0-2); WBC,URINE 0-4 /HPF (0-4)
[2021-03-23 10:53] LABS: PRE OP PROTIME 10.6 SECONDS (9.0-12.0)
[2021-03-23 11:05] LABS: ALBUMIN 4.1 G/DL (3.4-5.0); ALBUMIN/GLOBULIN RATIO 1.2 (1.1-1.5); ALKALINE PHOSPHATASE 95 IU/L (46-116); BLOOD UREA NITROGEN 11 MG/DL (7-18); BUN/CREATININE RATIO 14.9 (6.6-38.0); CALCIUM 8.8 MG/DL (8.5-10.1); CHLORIDE 104 MMOL/L (99-107); CREATININE 0.74 MG/DL (0.40-0.90); PRE OP ALT 33 U/L (30-65); PRE OP ANION GAP 10 (8-16); PRE OP AST 21 U/L (10-37); PRE OP BILIRUB, TOTAL 0.4 MG/DL (0.0-1.0); PRE OP GLUCOSE 93 MG/DL (70-104); PRE OP POTASSIUM 4.2 MMOL/L (3.4-5.1); PRE OP SODIUM 140 MMOL/L (135-145); TOTAL CARBON DIOXIDE 25.7 MMOL/L (24-32); TOTAL PROTEIN 7.6 G/DL (6.4-8.2); eGFR 81 ML/MIN
[~2021-03-24] VITALS: Ht 172.7 cm; Wt 106.8 kg
[2021-03-24] VITALS (20 sets, daily range): BP systolic 92–135; BP diastolic 43–78
[~2021-03-24 06:27] MED LIST changes: +ACET-1025 PO; +ALBU90AE IH; +ALPR0.5T8 PO; +CYAN100087 PO; +DOCUMENT DATE & TIME OF BETA-BLOCKER PO ONE; -DULO30CA52 PO; +FENO54TA PO; +MONT10TA32 PO; +SERT-434 PO; -TRIA15OI9 TOP; +clindamycin-Cleocin 900mg/D5W 50 ML IV ONE; +famotidine 20mg tablet PO ONE; +ringers solution, lacted 1,000 ML IV SCH
[2021-03-24] MEDS ORDERED: BUPIVACAINE liposomal/PF 13.3 MG/ML vial IM ONE (06:59)
[2021-03-24] MEDS ORDERED: LIDOcaine 1% (10mg/ml) 2ml vial ONE (06:59)
[2021-03-24] MEDS ORDERED: BUPIVAcaine/PF 2.5mg/ml (0.25%) 10ml vial ONE ×2 (07:00→13:39)
[2021-03-24] MEDS ORDERED: ipratropium/albuterol 3ml nebule NEB STA (07:41)
[2021-03-24] MEDS ORDERED: iohexol 300mg/ml 100ml inj. ONE (07:51)
[2021-03-24] MEDS ORDERED: fentaNYL /PF 50mcg/ml 5ml ampule ONE (09:10)
[2021-03-24] MEDS ORDERED: midazolam 1 mg/ML 2ml injection ONE (09:10)
[2021-03-24] MEDS ORDERED: LIDOcaine 2% (20mg/ml) 5ml vial ONE ×2 (09:12→15:31)
[2021-03-24] MEDS ORDERED: propofol inj 20 ML IV ONE ×2 (09:12→15:31)
[2021-03-24] MEDS ORDERED: rocuronium 10mg/ml inj IV ONE ×3 (09:13→10:03)
[2021-03-24] MEDS ORDERED: NORepinephrine 8mg/ 250ml NS 250 ML IV ONE (09:15)
[2021-03-24] MEDS ORDERED: meperidine/PF 25mg/ml syringe IV PRN ×2 (09:25)
[2021-03-24] MEDS ORDERED: ringers solution, lacted 1,000 ML IV SCH (09:25)
[2021-03-24] MEDS ORDERED: proCHLORperazine 10 MG/2 ml inj IV PRN (09:25)
[2021-03-24] MEDS ORDERED: morphine 2 MG/ML inj. syringe IV PRN (09:25)
[2021-03-24] MEDS ORDERED: morphine 4 MG/ML inj SYRINge IV PRN ×3 (09:25→16:00)
[2021-03-24] MEDS ORDERED: ondansetron/PF 4mg/2ml inj IV PRN ×2 (09:25→16:00)
[2021-03-24] MEDS ORDERED: glycopyrrolate 0.2mg/ml inj ONE (10:03)
[2021-03-24] MEDS ORDERED: sevoflurane 250ml liquid IH ONE (10:03)
[2021-03-24] MEDS ORDERED: ondansetron/PF 4mg/2ml inj ONE (10:03)
[2021-03-24] MEDS ORDERED: dexamethasone sod phosphate 10mg/ml inj ONE (10:03)
[2021-03-24] MEDS ORDERED: neostigmine methylsulfate 1 MG/ML 10ml vial ONE (10:03)
[2021-03-24] MEDS ORDERED: ePHEDrine 50MG/ML INJ. ONE (10:03)
[2021-03-24] MEDS ORDERED: NORepinephrine 1 mg/ml inj IV ONE (10:58)
[2021-03-24] MEDS ORDERED: naloxone 2mg/2ml inj 2 MG in normal saline 500ml IV soln 500 ML IV PRN (12:55)
[2021-03-24] MEDS ORDERED: morphine/PF injection 20 MG, BUPIVAcaine 0.5% inj/PF 250 MG in normal saline 250ml IV s... EPI SCH (12:55)
[2021-03-24] MEDS ORDERED: fentaNYL/PF 50MCG/1 ML 2ML syringe ONE (13:39)
[2021-03-24] MEDS ORDERED: sugammadex 200mg/2ml injection IV ONE (15:31)
--- NOTE | 2021-03-24 15:40 | NUR ---
Received from OR via gurney, accompanied by Anesthesiologist and report given by Anesthesiologist. PATIENT WAKING UP,C/O PAIN RIGHT SIDE SEE EMAR- EPIDURAL STARTED AND INCREASED PER SURGEON, V/S WNL, 20G TO RUE, ART LINE LUE, F/C DRAINING CLEAR YELLOW URINE, CHEST TUBE TO RIGHT SIDE CDI AT 20CM SUCTION WITH 120CC IN DRAIN . SOME MILD BUBBLES WITH EXPIRATION. TRIPLE LUMEN CL RIGHT NECK. ABG REVIEWED BY DR MORA AND CXR. V/S STABLE, SCD ON.
[2021-03-24] MEDS ORDERED: acetaminophen 1,000mg/100ml IV 100 ML IV ONE (15:50)
[2021-03-24] MEDS ORDERED: HYDROcodone/acetaminophen 10/325mg tab PO PRN (16:00)
[2021-03-24] MEDS ORDERED: metoclopramide 5 mg/ml inj IV PRN (16:00)
[2021-03-24] MEDS ORDERED: naloxone 0.4 mg/ml inj IV PRN (16:00)
[2021-03-24] MEDS ORDERED: CADD PCA waste documentation MC PRN (16:00)
[2021-03-24] MEDS ORDERED: albuterol 2.5 MG/3 ML nebule NEB PRN (16:00)
[2021-03-24] MEDS ORDERED: potassium Cl 20mEq in D5-NS 1,000 ML IV SCH (16:00)
[2021-03-24 16:01] LABS: ABG BASE EXCESS -4.3 mmol/L (-2.0-2.0); ABG HCO3 22.9 mmol/L (22.0-26.0); ABG OXYGEN SATURATION 96.4 % (94-97); ABG PCO2 (T) 48.4 mmHg (32.0-45.0); ABG PO2 (T) 86.8 mmHg (75.0-100.0); FCOHb 0.3 % (0.0-3.9); FLOW 10 L/min; FMetHb 0.4 % (0.0-1.5); FO2Hb 95.7 % (94-97); PATIENT TEMPERATURE 36.1; TOTAL HEMOGLOBIN 13.9 G/dl (12.0-16.0)
[2021-03-24] MEDS: meperidine/PF 25mg/ml syringe IV PRN ×2 (16:01→16:13)
--- NOTE | 2021-03-24 16:50 | NUR ---
PATIENT A&OX4,,C/O PAIN AT TIMES RIGHT SIDE SEE EMAR- EPIDURAL TITRATED TO MAX DOSE, V/S WNL, 20G TO RUE, ART LINE LUE, F/C DRAINING CLEAR YELLOW URINE, CHEST TUBE TO RIGHT SIDE CDI AT 20CM SUCTION WITH 140CC IN DRAIN . SOME MILD BUBBLES WITH EXPIRATION. TRIPLE LUMEN CL RIGHT NECK. PATIENT TAKEN TO 2007 WITH ALL BELONGINGS AND HOOKED UP TO MONITORS IN ROOM AND REPORT GIVEN TO CICU RN WHO HAS TAKEN OVER PATIENT CARE.
--- NOTE | 2021-03-24 17:00 | NUR ---
received from PACU by bed S/P right middle lobectomy and R lower lobectomy. patient AAO x4 , appears in no acute distress. Chest tubes x2 lateral chest intact and to 20 cm suction with moderate amount of intermittent bubbling. Dressings CDI no bleeding noted on site. Samuels catheter intact with clear yellow urine.
[2021-03-24 17:10] LABS: ABG BASE EXCESS -3.8 mmol/L (-2.0-2.0); ABG HCO3 22.7 mmol/L (22.0-26.0); ABG PCO2 (T) 46.7 mmHg (32.0-45.0); ABG PO2 (T) 80.4 mmHg (75.0-100.0); FCOHb 0.1 % (0.0-3.9); FLOW 2 L/min; FMetHb 0.3 % (0.0-1.5); FO2Hb 94.6 % (94-97); PATIENT TEMPERATURE 36.9; TOTAL HEMOGLOBIN 13.6 G/dl (12.0-16.0)
--- NOTE | 2021-03-24 18:37 | NUR ---
Paged placed for Dr Aranda and he called back. Notified him of pneumothorax on right side per Dr Matias (radiologist) Also notified him of the presence of air leak on the chest tube, no new orders given
[2021-03-24] MEDS: gabapentin 300mg capsule PO SCH (21:16)
[2021-03-24] MEDS ORDERED: ketorolac trometh. 30mg/ml inj. IV PRN (22:15)
[2021-03-25] VITALS (23 sets, daily range): BP systolic 85–146; BP diastolic 35–92
[2021-03-25] MEDS ORDERED: acetylcysteine 200 MG/ml 4ml vial INH SCH
[2021-03-25] MEDS ORDERED: ketorolac trometh. 30mg/ml inj. IM SCH (02:00)
[2021-03-25 02:22] LABS: BASOPHILS % (AUTO) 0.2 % (0-1); EOSINOPHILS % (AUTO) 0 % (0-6); HEMATOCRIT 37.4 % (35.0-45.0); HEMOGLOBIN 12.3 g/dl (12.0-16.0); LYMPHOCYTES # (AUTO) 1.3 X10'3 (1.1-4.8); LYMPHOCYTES % (AUTO) 8.3 % (21-51); MEAN CORPUSCULAR HGB CONC 32.8 g/dL (33.0-36.5); MEAN CORPUSCULAR VOLUME 88.5 FL (78-98); MEAN PLATELET VOLUME 10.3 FL (7.4-10.4); MONOCYTES # (AUTO) 1.2 X10'3 (0-0.9); MONOCYTES % (AUTO) 8.2 % (2-12); NEUTROPHILS # (AUTO) 12.5 X10'3 (1.8-7.7); NEUTROPHILS % (AUTO) 83.3 % (42-75); PLATELET COUNT 271 X10'3 (140-440); RED BLOOD COUNT 4.22 X10'6 (4.20-5.60); RED CELL DISTRIBUTION WIDTH 13.8 % (11.5-14.5)
[2021-03-25 02:42] LABS: ALANINE AMINOTRANSFERASE 34 U/L (12-78); ALBUMIN 3.5 G/DL (3.4-5.0); ALBUMIN/GLOBULIN RATIO 1.1 (1.1-1.5); ALKALINE PHOSPHATASE 89 IU/L (46-116); ANION GAP 8 (8-16); ASPARTATE AMINO TRANSFERASE 40 U/L (10-37); BILIRUBIN,TOTAL 0.3 MG/DL (0.1-1.0); BLOOD UREA NITROGEN 21 MG/DL (7-18); BUN/CREATININE RATIO 17.9 (6.6-38.0); CALCIUM 7.4 MG/DL (8.5-10.1); CHLORIDE 105 MMOL/L (99-107); CREATININE 1.17 MG/DL (0.40-0.90); GLUCOSE 144 MG/DL (70-104); MAGNESIUM 1.9 MG/DL (1.5-2.4); PHOSPHORUS 4.6 MG/DL (2.3-4.5); POTASSIUM 5.8 MMOL/L (3.5-5.1); SODIUM 138 MMOL/L (135-145); TOTAL CARBON DIOXIDE 24.6 MMOL/L (24-32); TOTAL PROTEIN 6.7 G/DL (6.4-8.2); eGFR 48 ML/MIN
[2021-03-25] MEDS: albuterol 2.5 MG/3 ML nebule NEB SCH ×6 (02:45→23:11)
[2021-03-25] MEDS: acetylcysteine 200 MG/ml 4ml vial INH SCH ×5 (02:45→23:11)
[2021-03-25] MEDS ORDERED: albumin (Human) 5% 250ml 250 ML IV ONE ×2 (03:50)
[2021-03-25] MEDS: dextrose 5%-1/2 normal saline 1,000 ML IV SCH ×2 (04:52→16:12)
[2021-03-25] MEDS: gabapentin 300mg capsule PO SCH ×2 (08:49→20:47)
[2021-03-25] MEDS: HYDROcodone/acetaminophen 10/325mg tab PO PRN ×3 (11:35→23:33)
--- NOTE | 2021-03-25 17:25 | NUR ---
Called Dr Schmidt re: low grade temp - 38.1. Cooling measures in place. No new orders received. Asked for benadryl and throat lozanges per pt request - MD olivera'd
[2021-03-25] MEDS ORDERED: benzocaine/menthol oral lozeng 1 EACH BOX MM PRN (17:30)
[2021-03-25] MEDS ORDERED: ACETAMINOPHEN 650 MG PO PRN (18:20)
[2021-03-25] MEDS ORDERED: albuterol 2.5 MG/3 ML nebule NEB PRN (18:20)
[2021-03-25] MEDS ORDERED: ALPRAZolam 0.25mg tablet PO PRN (18:20)
[2021-03-25] MEDS: diphenhydrAMINE 25mg capsule PO PRN (20:44)
[2021-03-25] MEDS: fluticasone nasal spray 16GM bottle NS SCH (20:47)
[2021-03-25] MEDS: calcium carbonate/vitamin D3 tablet PO SCH (20:47)
[2021-03-25] MEDS: busPIRone 15mg tablet PO SCH (20:48)
[2021-03-25] MEDS: traZODone 50mg tablet PO SCH (20:49)
[2021-03-25] MEDS: montelukast 10mg tablet PO SCH (20:50)
[2021-03-25] MEDS: benzonatate 100mg capsule PO SCH (20:51)
[2021-03-25] MEDS: sertraline 50mg tablet PO SCH (20:51)
[2021-03-25] MEDS ORDERED: naloxone 0.4 mg/ml inj IV PRN (21:55)
[2021-03-25] MEDS ORDERED: CADD PCA waste documentation MC PRN (21:55)
[2021-03-26] VITALS (24 sets, daily range): BP systolic 98–138; BP diastolic 44–82
[2021-03-26] MEDS: HYDROmorph./NS 0.2 mg/ml CADD 100 ML IV SCH ×13 (03:16→23:00)
[2021-03-26] MEDS: albuterol 2.5 MG/3 ML nebule NEB SCH ×6 (03:55→23:12)
[2021-03-26] MEDS: acetylcysteine 200 MG/ml 4ml vial INH SCH ×6 (03:56→23:12)
[2021-03-26 04:23] LABS: BASOPHILS % (AUTO) 0.4 % (0-1); EOSINOPHILS # (AUTO) 0.1 X10'3 (0-0.9); EOSINOPHILS % (AUTO) 1.1 % (0-6); HEMATOCRIT 34.6 % (35.0-45.0); HEMOGLOBIN 11.5 g/dl (12.0-16.0); LYMPHOCYTES # (AUTO) 1.3 X10'3 (1.1-4.8); LYMPHOCYTES % (AUTO) 14.8 % (21-51); MEAN CORPUSCULAR HEMOGLOBIN 29.3 PG (27.0-31.0); MEAN CORPUSCULAR HGB CONC 33.2 g/dL (33.0-36.5); MEAN CORPUSCULAR VOLUME 88.3 FL (78-98); MEAN PLATELET VOLUME 10.2 FL (7.4-10.4); MONOCYTES # (AUTO) 0.9 X10'3 (0-0.9); MONOCYTES % (AUTO) 9.8 % (2-12); NEUTROPHILS # (AUTO) 6.7 X10'3 (1.8-7.7); NEUTROPHILS % (AUTO) 73.9 % (42-75); PLATELET COUNT 202 X10'3 (140-440); RED BLOOD COUNT 3.92 X10'6 (4.20-5.60); RED CELL DISTRIBUTION WIDTH 14.1 % (11.5-14.5); WHITE BLOOD COUNT 9.1 X10'3 (4.5-11.0)
[2021-03-26 04:46] LABS: ALANINE AMINOTRANSFERASE 29 U/L (12-78); ALBUMIN 3.1 G/DL (3.4-5.0); ALBUMIN/GLOBULIN RATIO 0.9 (1.1-1.5); ALKALINE PHOSPHATASE 82 IU/L (46-116); ANION GAP 7 (8-16); ASPARTATE AMINO TRANSFERASE 32 U/L (10-37); BILIRUBIN,TOTAL 0.5 MG/DL (0.1-1.0); BLOOD UREA NITROGEN 11 MG/DL (7-18); BUN/CREATININE RATIO 14.7 (6.6-38.0); CALCIUM 7.8 MG/DL (8.5-10.1); CHLORIDE 103 MMOL/L (99-107); CREATININE 0.75 MG/DL (0.40-0.90); GLUCOSE 152 MG/DL (70-104); MAGNESIUM 1.9 MG/DL (1.5-2.4); PHOSPHORUS 1.9 MG/DL (2.3-4.5); POTASSIUM 4.4 MMOL/L (3.5-5.1); SODIUM 137 MMOL/L (135-145); TOTAL CARBON DIOXIDE 26.7 MMOL/L (24-32); TOTAL PROTEIN 6.4 G/DL (6.4-8.2); eGFR 79 ML/MIN
--- NOTE | 2021-03-26 07:17 | NUR ---
Patient in room CICU 2007. I have received report from Houston AVENDANO and had the opportunity to ask questions and assume patient care.
[2021-03-26] MEDS: HYDROcodone/acetaminophen 10/325mg tab PO PRN (07:27)
[2021-03-26] MEDS: dextrose 5%-1/2 normal saline 1,000 ML IV SCH ×2 (08:19→17:20)
[2021-03-26] MEDS: fluticasone nasal spray 16GM bottle NS SCH ×2 (08:20→20:34)
[2021-03-26] MEDS: cetirizine 10mg tablet PO SCH ×2 (08:26→20:33)
[2021-03-26] MEDS: cyanocobalamin 500mcg tablet PO SCH (08:30)
[2021-03-26] MEDS: atenolol 50mg tablet PO SCH (08:30)
[2021-03-26] MEDS: ascorbic acid 500mg tablet PO SCH (08:30)
[2021-03-26] MEDS: calcium carbonate/vitamin D3 tablet PO SCH ×2 (08:30→20:34)
[2021-03-26] MEDS: multivitamins, therapeutics tablet PO SCH (08:30)
[2021-03-26] MEDS: pantoprazole 40mg Tablet.DR PO SCH (08:30)
[2021-03-26] MEDS: gabapentin 300mg capsule PO SCH ×3 (08:30→23:54)
[2021-03-26] MEDS: levoTHYROXINE 100mcg tablet PO SCH (08:31)
[2021-03-26] MEDS: benzonatate 100mg capsule PO SCH ×3 (08:31→20:34)
[2021-03-26] MEDS: cholecalciferol (vitamin D3) 1,000 unit (25mcg) tablet PO SCH (08:31)
[2021-03-26] MEDS: busPIRone 15mg tablet PO SCH ×3 (08:31→20:35)
[2021-03-26] MEDS: fenofibrate 48mg tablet PO SCH (08:32)
--- NOTE | 2021-03-26 10:37 | NUR ---
Dr. Ochoa at bedside and removed epidural. Bandaide applied to site.
[2021-03-26] MEDS ORDERED: docusate sod 100mg capsule PO ONE (11:15)
[2021-03-26] MEDS: acetaminophen 325mg tablet PO PRN (16:17)
--- NOTE | 2021-03-26 18:09 | NUR ---
Problems reprioritized. Patient report given, questions answered & plan of care reviewed with Bessy AVENDANO.
--- NOTE | 2021-03-26 19:00 | NUR ---
I have received report and assumed care of pt, Pt up in chair eating dinner without difficulties, HS cares complete, pts hair washed CVL dressing changed pt tolerated well
--- NOTE | 2021-03-26 19:35 | NUR ---
pt transferred back to bed with stand by assist without difficulties
[2021-03-26] MEDS: traZODone 50mg tablet PO SCH (20:34)
[2021-03-26] MEDS: docusate sod 100mg capsule PO SCH (20:34)
[2021-03-26] MEDS: sertraline 50mg tablet PO SCH (20:34)
[2021-03-26] MEDS: montelukast 10mg tablet PO SCH (20:47)
[2021-03-26] MEDS: diphenhydrAMINE 25mg capsule PO PRN (23:53)
[2021-03-27] VITALS (24 sets, daily range): BP systolic 92–136; BP diastolic 47–79
[2021-03-27] MEDS: dextrose 5%-1/2 normal saline 1,000 ML IV SCH ×2 (00:29→13:26)
[2021-03-27] MEDS: HYDROmorph./NS 0.2 mg/ml CADD 100 ML IV SCH ×4 (01:00→07:55)
[2021-03-27 02:36] LABS: BASOPHILS # (AUTO) 0.1 X10'3 (0-0.2); BASOPHILS % (AUTO) 0.7 % (0-1); EOSINOPHILS # (AUTO) 0.2 X10'3 (0-0.9); EOSINOPHILS % (AUTO) 2.5 % (0-6); HEMOGLOBIN 10.7 g/dl (12.0-16.0); LYMPHOCYTES # (AUTO) 1.5 X10'3 (1.1-4.8); LYMPHOCYTES % (AUTO) 18.8 % (21-51); MEAN CORPUSCULAR HEMOGLOBIN 29.3 PG (27.0-31.0); MEAN CORPUSCULAR HGB CONC 33.6 g/dL (33.0-36.5); MEAN CORPUSCULAR VOLUME 87.4 FL (78-98); MEAN PLATELET VOLUME 9.9 FL (7.4-10.4); MONOCYTES # (AUTO) 0.8 X10'3 (0-0.9); MONOCYTES % (AUTO) 10.3 % (2-12); NEUTROPHILS # (AUTO) 5.3 X10'3 (1.8-7.7); NEUTROPHILS % (AUTO) 67.7 % (42-75); PLATELET COUNT 199 X10'3 (140-440); RED BLOOD COUNT 3.66 X10'6 (4.20-5.60); RED CELL DISTRIBUTION WIDTH 14.3 % (11.5-14.5); WHITE BLOOD COUNT 7.9 X10'3 (4.5-11.0)
[2021-03-27 02:55] LABS: ALANINE AMINOTRANSFERASE 31 U/L (12-78); ALBUMIN 2.5 G/DL (3.4-5.0); ALBUMIN/GLOBULIN RATIO 0.7 (1.1-1.5); ALKALINE PHOSPHATASE 88 IU/L (46-116); ANION GAP 6 (8-16); ASPARTATE AMINO TRANSFERASE 21 U/L (10-37); BILIRUBIN,TOTAL 0.3 MG/DL (0.1-1.0); BLOOD UREA NITROGEN 9 MG/DL (7-18); BUN/CREATININE RATIO 14.3 (6.6-38.0); CALCIUM 8.5 MG/DL (8.5-10.1); CHLORIDE 108 MMOL/L (99-107); CREATININE 0.63 MG/DL (0.40-0.90); GLUCOSE 146 MG/DL (70-104); MAGNESIUM 1.8 MG/DL (1.5-2.4); PHOSPHORUS 2.3 MG/DL (2.3-4.5); POTASSIUM 4.1 MMOL/L (3.5-5.1); SODIUM 143 MMOL/L (135-145); TOTAL CARBON DIOXIDE 28.6 MMOL/L (24-32); eGFR > 90 ML/MIN
[2021-03-27] MEDS: albuterol 2.5 MG/3 ML nebule NEB SCH ×5 (03:12→20:25)
[2021-03-27] MEDS: acetylcysteine 200 MG/ml 4ml vial INH SCH ×6 (03:12→23:00)
[2021-03-27] MEDS: acetaminophen 325mg tablet PO PRN (06:57)
[2021-03-27] MEDS: gabapentin 300mg capsule PO SCH ×2 (08:08→18:28)
[2021-03-27] MEDS: docusate sod 100mg capsule PO SCH ×2 (08:08→20:46)
[2021-03-27] MEDS: fluticasone nasal spray 16GM bottle NS SCH ×2 (08:08→20:46)
[2021-03-27] MEDS: calcium carbonate/vitamin D3 tablet PO SCH ×2 (08:09→20:46)
[2021-03-27] MEDS: ascorbic acid 500mg tablet PO SCH (08:09)
[2021-03-27] MEDS: fenofibrate 48mg tablet PO SCH (08:09)
[2021-03-27] MEDS: pantoprazole 40mg Tablet.DR PO SCH (08:09)
[2021-03-27] MEDS: atenolol 50mg tablet PO SCH (08:09)
[2021-03-27] MEDS: cyanocobalamin 500mcg tablet PO SCH (08:09)
[2021-03-27] MEDS: busPIRone 15mg tablet PO SCH ×3 (08:09→22:13)
[2021-03-27] MEDS: multivitamins, therapeutics tablet PO SCH (08:10)
[2021-03-27] MEDS: cholecalciferol (vitamin D3) 1,000 unit (25mcg) tablet PO SCH (08:10)
[2021-03-27] MEDS: benzonatate 100mg capsule PO SCH ×3 (08:11→22:14)
--- NOTE | 2021-03-27 10:38 | NUR ---
Noted pt s/p R thoracotomy and bilobectomy this admit per MD note. Pt seen by FIOR for written/verbal high protein ed w/ RD contact information and Andrew/Ensure ONS coupons provided. Pt is agreeable to strawberry-banana andrew [place]; notified. Addendum: 03/27/21 at [address] Amended: Links added. Addendum: 03/27/21 at [address] Noted pt s/p R thoracotomy and bilobectomy this admit per MD note. Pt seen by FIOR for written/verbal high protein ed w/ RD contact information and Andrew/Ensure ONS coupons provided. Pt is agreeable to strawberry-banana andrew smoothie BIDBD; notified. Pt is on regular/EC7 diet has no lower teeth since currently having them re-done and only has upper dentures per pt; is agreeable to chopped meats for ease of PO. Dietary notified.
[2021-03-27] MEDS ORDERED: magnesium hydroxide 30ml (MOM) UD suspension PO PRN (17:55)
--- NOTE | 2021-03-27 18:26 | NUR ---
Patient in room CICU 2007. I have received report from Janine AVENDANO and had the opportunity to ask questions and assume patient care.
[2021-03-27] MEDS: montelukast 10mg tablet PO SCH (20:46)
[2021-03-27] MEDS: sertraline 50mg tablet PO SCH (20:46)
[2021-03-27] MEDS: cetirizine 10mg tablet PO SCH (20:46)
[2021-03-27] MEDS: traZODone 50mg tablet PO SCH (20:46)
--- NOTE | 2021-03-27 21:44 | NUR ---
Sent message to pharmacy to bring eddie marsh and nba as not stocked in omni and not in patient specific.
[2021-03-28] VITALS (20 sets, daily range): BP systolic 98–137; BP diastolic 49–76
[2021-03-28] MEDS: albuterol 2.5 MG/3 ML nebule NEB SCH ×7 (00:01→22:49)
[2021-03-28] MEDS: gabapentin 300mg capsule PO SCH ×3 (00:02→20:52)
[2021-03-28] MEDS: HYDROmorph./NS 0.2 mg/ml CADD 100 ML IV SCH ×9 (00:56→23:00)
[2021-03-28 02:58] LABS: BASOPHILS % (AUTO) 0.3 % (0-1); EOSINOPHILS # (AUTO) 0.2 X10'3 (0-0.9); EOSINOPHILS % (AUTO) 1.5 % (0-6); HEMATOCRIT 27.6 % (35.0-45.0); HEMOGLOBIN 9.1 g/dl (12.0-16.0); LYMPHOCYTES # (AUTO) 1.4 X10'3 (1.1-4.8); LYMPHOCYTES % (AUTO) 10.7 % (21-51); MEAN CORPUSCULAR HEMOGLOBIN 28.9 PG (27.0-31.0); MEAN CORPUSCULAR VOLUME 87.6 FL (78-98); MONOCYTES # (AUTO) 1.8 X10'3 (0-0.9); MONOCYTES % (AUTO) 13.4 % (2-12); NEUTROPHILS # (AUTO) 9.8 X10'3 (1.8-7.7); NEUTROPHILS % (AUTO) 74.1 % (42-75); PLATELET COUNT 172 X10'3 (140-440); RED BLOOD COUNT 3.15 X10'6 (4.20-5.60); RED CELL DISTRIBUTION WIDTH 15.7 % (11.5-14.5); WHITE BLOOD COUNT 13.2 X10'3 (4.5-11.0)
[2021-03-28 03:22] LABS: ALANINE AMINOTRANSFERASE 27 U/L (12-78); ALBUMIN 2.2 G/DL (3.4-5.0); ALBUMIN/GLOBULIN RATIO 0.5 (1.1-1.5); ALKALINE PHOSPHATASE 86 IU/L (46-116); ANION GAP 7 (8-16); ASPARTATE AMINO TRANSFERASE 27 U/L (10-37); BILIRUBIN,TOTAL 0.5 MG/DL (0.1-1.0); BLOOD UREA NITROGEN 31 MG/DL (7-18); BUN/CREATININE RATIO 19.4 (6.6-38.0); CALCIUM 8.3 MG/DL (8.5-10.1); CHLORIDE 107 MMOL/L (99-107); GLUCOSE 96 MG/DL (70-104); PHOSPHORUS 2.9 MG/DL (2.3-4.5); POTASSIUM 4.2 MMOL/L (3.5-5.1); SODIUM 141 MMOL/L (135-145); TOTAL CARBON DIOXIDE 26.9 MMOL/L (24-32); TOTAL PROTEIN 6.3 G/DL (6.4-8.2); eGFR 33 ML/MIN
--- NOTE | 2021-03-28 05:49 | NUR ---
Patient very uncomfortable and unable to change position well. She was up to the commode every 2 hours and was propped with pillows.
--- NOTE | 2021-03-28 06:33 | NUR ---
Problems reprioritized. Patient report given, questions answered & plan of care reviewed with Padmini AVENDANO.
[2021-03-28] MEDS: ascorbic acid 500mg tablet PO SCH (07:44)
[2021-03-28] MEDS: calcium carbonate/vitamin D3 tablet PO SCH ×2 (07:44→20:54)
[2021-03-28] MEDS: docusate sod 100mg capsule PO SCH ×2 (07:45→20:52)
[2021-03-28] MEDS: multivitamins, therapeutics tablet PO SCH (07:45)
[2021-03-28] MEDS: fluticasone nasal spray 16GM bottle NS SCH ×2 (07:46→20:53)
[2021-03-28] MEDS: cholecalciferol (vitamin D3) 1,000 unit (25mcg) tablet PO SCH (07:46)
[2021-03-28] MEDS: pantoprazole 40mg Tablet.DR PO SCH (07:46)
[2021-03-28] MEDS: atenolol 50mg tablet PO SCH (07:46)
[2021-03-28] MEDS: cyanocobalamin 500mcg tablet PO SCH (09:00)
[2021-03-28] MEDS: fenofibrate 48mg tablet PO SCH (11:00)
[2021-03-28] MEDS: busPIRone 15mg tablet PO SCH ×3 (11:00→20:54)
[2021-03-28] MEDS: levoTHYROXINE 100mcg tablet PO SCH (11:00)
[2021-03-28] MEDS: benzonatate 100mg capsule PO SCH ×3 (11:00→20:54)
--- NOTE | 2021-03-28 18:05 | NUR ---
Patient in room PCU 3013. I have received report from Padmini AVENDANO and had the opportunity to ask questions and assume patient care.
--- NOTE | 2021-03-28 18:39 | NUR ---
Problems reprioritized. Patient report given, questions answered & plan of care reviewed with ROMANA ARDON.
[2021-03-28] MEDS: montelukast 10mg tablet PO SCH (20:52)
[2021-03-28] MEDS: sertraline 50mg tablet PO SCH (20:52)
[2021-03-28] MEDS: traZODone 50mg tablet PO SCH (20:54)
[2021-03-28] MEDS: cetirizine 10mg tablet PO SCH (20:54)
--- NOTE | 2021-03-28 20:58 | NUR ---
Patient verbalized she wishes for her daughter in law to be present when Dr. Stallings gives information, as she does not retain information well. Maria E Juarez [phone].
[2021-03-29] MEDS: HYDROmorph./NS 0.2 mg/ml CADD 100 ML IV SCH ×11 (01:00→23:00)
[2021-03-29 02:00] VITALS: BP 137/63
[2021-03-29] MEDS: albuterol 2.5 MG/3 ML nebule NEB SCH ×6 (02:57→23:00)
[2021-03-29 06:00] VITALS: BP 134/72
--- NOTE | 2021-03-29 06:00 | NUR ---
Patient in room PCU 3013. I have received report from Sirisha AVENDANO and had the opportunity to ask questions and assume patient care.
--- NOTE | 2021-03-29 06:20 | NUR ---
Problems reprioritized. Patient report given, questions answered & plan of care reviewed with Radha AVENDANO.
--- NOTE | 2021-03-29 06:20 | NUR ---
After receiving report, checked patient and CADD pump was completely empty and had not been assessed since 99.
--- NOTE | 2021-03-29 06:38 | NUR ---
Called pharmacy and requested dilaudid refill ritchie
[2021-03-29 08:22] LABS: BASOPHILS # (AUTO) 0.1 X10'3 (0-0.2); BASOPHILS % (AUTO) 0.7 % (0-1); EOSINOPHILS # (AUTO) 0.3 X10'3 (0-0.9); EOSINOPHILS % (AUTO) 3.4 % (0-6); HEMATOCRIT 35.7 % (35.0-45.0); HEMOGLOBIN 12.1 g/dl (12.0-16.0); LYMPHOCYTES # (AUTO) 2.2 X10'3 (1.1-4.8); LYMPHOCYTES % (AUTO) 27.1 % (21-51); MEAN CORPUSCULAR HEMOGLOBIN 29.1 PG (27.0-31.0); MEAN CORPUSCULAR HGB CONC 33.8 g/dL (33.0-36.5); MEAN CORPUSCULAR VOLUME 86.2 FL (78-98); MEAN PLATELET VOLUME 9.7 FL (7.4-10.4); MONOCYTES # (AUTO) 0.6 X10'3 (0-0.9); MONOCYTES % (AUTO) 7.8 % (2-12); PLATELET COUNT 261 X10'3 (140-440); RED BLOOD COUNT 4.15 X10'6 (4.20-5.60); RED CELL DISTRIBUTION WIDTH 13.8 % (11.5-14.5); WHITE BLOOD COUNT 8.2 X10'3 (4.5-11.0)
[2021-03-29] MEDS: benzonatate 100mg capsule PO SCH ×3 (08:39→20:15)
[2021-03-29] MEDS: busPIRone 15mg tablet PO SCH ×3 (08:39→20:15)
[2021-03-29] MEDS: cyanocobalamin 500mcg tablet PO SCH (08:39)
[2021-03-29] MEDS: docusate sod 100mg capsule PO SCH ×2 (08:40→20:14)
[2021-03-29] MEDS: calcium carbonate/vitamin D3 tablet PO SCH ×2 (08:40→20:14)
[2021-03-29] MEDS: gabapentin 300mg capsule PO SCH ×2 (08:40→20:16)
[2021-03-29] MEDS: multivitamins, therapeutics tablet PO SCH (08:41)
[2021-03-29] MEDS: ascorbic acid 500mg tablet PO SCH (08:41)
[2021-03-29] MEDS: pantoprazole 40mg Tablet.DR PO SCH (08:41)
[2021-03-29] MEDS: atenolol 50mg tablet PO SCH (08:41)
[2021-03-29] MEDS: cholecalciferol (vitamin D3) 1,000 unit (25mcg) tablet PO SCH (08:42)
[2021-03-29] MEDS: fenofibrate 48mg tablet PO SCH (08:42)
[2021-03-29] MEDS: fluticasone nasal spray 16GM bottle NS SCH ×2 (08:43→20:12)
[2021-03-29 09:00] LABS: ALANINE AMINOTRANSFERASE 43 U/L (12-78); ALBUMIN 2.7 G/DL (3.4-5.0); ALBUMIN/GLOBULIN RATIO 0.7 (1.1-1.5); ALKALINE PHOSPHATASE 113 IU/L (46-116); ANION GAP 8 (8-16); ASPARTATE AMINO TRANSFERASE 25 U/L (10-37); BILIRUBIN,TOTAL 0.4 MG/DL (0.1-1.0); BLOOD UREA NITROGEN 13 MG/DL (7-18); BUN/CREATININE RATIO 20.6 (6.6-38.0); CALCIUM 8.5 MG/DL (8.5-10.1); CHLORIDE 103 MMOL/L (99-107); CREATININE 0.63 MG/DL (0.40-0.90); GLUCOSE 110 MG/DL (70-104); MAGNESIUM 1.8 MG/DL (1.5-2.4); PHOSPHORUS 4.1 MG/DL (2.3-4.5); POTASSIUM 4.2 MMOL/L (3.5-5.1); SODIUM 140 MMOL/L (135-145); TOTAL PROTEIN 6.7 G/DL (6.4-8.2); eGFR > 90 ML/MIN
[2021-03-29] MEDS ORDERED: magnesium citrate 296ml oral solution PO ONE (09:20)
[2021-03-29] MEDS: levoTHYROXINE 100mcg tablet PO SCH (10:26)
--- NOTE | 2021-03-29 10:46 | NUR ---
Initial: Pt with nonsmall cell lung cancer s/p bronchoscopy, right thoracotomy, bilobectomy with bronchoplasty closure, node dissection, and chest tube placement 03/24 per MD note. Pt on a EC7 diet with fluctuating PO intake, overall averaging 75% PO intake. Noted that pt just receiving regular food per dietary, f/u with dietary to send EC7 food per diet order with chopped meat per pt request given no bottom teeth at this time. Andrew ONS still pending MD approval in EMR. LBM 04/25 per physical though likely intended to be documented as 03/25 and pt documented as constipated. Pt receiving routine Colace and received PRN MoM for the first time 03/28. Pt also to receive one time dose of Mag Citrate today per EMR. No nutrition intervention implemented at this time. Will continue to follow and make recommendations as appropriate. Recommendations: 1) Continue EC7 regular diet; chop meat per pt request 2) [place]-banana Andrew smoothie BIDBD, pending MD approval in EMR 3) Routine bowel care 4) Weekly scaled weights Addendum: 03/29/21 at [address] Amended: Links added.
[2021-03-29 11:00] VITALS: BP 119/82
[2021-03-29 15:00] VITALS: BP 118/63
--- NOTE | 2021-03-29 18:31 | NUR ---
Problems reprioritized. Patient report given, questions answered & plan of care reviewed with Kalpana AVENDANO.
--- NOTE | 2021-03-29 18:43 | NUR ---
Patient in room PCU 3021. I have received report from Radha AVENDANO and had the opportunity to ask questions and assume patient care. Pt watching tv, waiting for her dinner tray. No signs of distress, will continue to monitor.
[2021-03-29 18:59] VITALS: BP 128/61
[2021-03-29] MEDS: sertraline 50mg tablet PO SCH (20:14)
[2021-03-29] MEDS: traZODone 50mg tablet PO SCH (20:14)
[2021-03-29] MEDS: cetirizine 10mg tablet PO SCH (20:14)
[2021-03-29] MEDS: montelukast 10mg tablet PO SCH (20:14)
[2021-03-29] MEDS: enoxaparin 40mg/0.4ml syringe SUBCUT SCH (20:16)
[2021-03-30] MEDS: HYDROmorph./NS 0.2 mg/ml CADD 100 ML IV SCH ×11 (01:00→23:00)
[2021-03-30] MEDS: albuterol 2.5 MG/3 ML nebule NEB SCH ×7 (03:00→23:00)
--- NOTE | 2021-03-30 06:25 | NUR ---
Patient in room PCU 3021. I have received report from ROMANA Acuna and had the opportunity to ask questions and assume patient care.
--- NOTE | 2021-03-30 06:26 | NUR ---
Problems reprioritized. Patient report given, questions answered & plan of care reviewed with Barbara AVENDANO.
--- NOTE | 2021-03-30 06:47 | NUR ---
Patient in room PCU 3021. I have received report from ROMANA Acuna and had the opportunity to ask questions and assume patient care.
[2021-03-30 07:00] VITALS: BP 123/52
[2021-03-30] MEDS: fluticasone nasal spray 16GM bottle NS SCH ×2 (08:43→20:37)
[2021-03-30] MEDS: cyanocobalamin 500mcg tablet PO SCH (08:44)
[2021-03-30] MEDS: ibuprofen tablet 400 MG TABLET PO SCH ×3 (08:44→17:28)
[2021-03-30] MEDS: busPIRone 15mg tablet PO SCH ×3 (08:44→20:36)
[2021-03-30] MEDS: fenofibrate 48mg tablet PO SCH (08:44)
[2021-03-30] MEDS: magnesium oxide 400mg tablet PO SCH ×3 (08:44→17:28)
[2021-03-30] MEDS: gabapentin 300mg capsule PO SCH ×2 (08:44→20:35)
[2021-03-30] MEDS: ascorbic acid 500mg tablet PO SCH (08:44)
[2021-03-30] MEDS: calcium carbonate/vitamin D3 tablet PO SCH ×2 (08:44→20:35)
[2021-03-30] MEDS: cholecalciferol (vitamin D3) 1,000 unit (25mcg) tablet PO SCH (08:44)
[2021-03-30] MEDS: benzonatate 100mg capsule PO SCH ×3 (08:44→20:35)
[2021-03-30] MEDS: pantoprazole 40mg Tablet.DR PO SCH (08:44)
[2021-03-30] MEDS: docusate sod 100mg capsule PO SCH ×2 (08:44→20:35)
[2021-03-30] MEDS: atenolol 50mg tablet PO SCH (08:46)
[2021-03-30] MEDS: multivitamins, therapeutics tablet PO SCH (08:46)
[2021-03-30] MEDS: levoTHYROXINE 100mcg tablet PO SCH (08:48)
[2021-03-30 11:00] VITALS: BP 121/59
--- NOTE | 2021-03-30 14:47 | NUR ---
Patient refused SVN treatment due to nausea
[2021-03-30 15:00] VITALS: BP 117/66
--- NOTE | 2021-03-30 17:58 | NUR ---
Problems reprioritized. Patient report given, questions answered & plan of care reviewed with ROMANA Olguin. Pt sitting up in bed watching tv comfortably at change of shift.
--- NOTE | 2021-03-30 18:00 | NUR ---
Patient in room PCU 3021. I have received report from Barbara AVENDANO and had the opportunity to ask questions and assume patient care.
[2021-03-30] MEDS: enoxaparin 40mg/0.4ml syringe SUBCUT SCH (20:35)
[2021-03-30] MEDS: cetirizine 10mg tablet PO SCH (20:35)
[2021-03-30] MEDS: traZODone 50mg tablet PO SCH (20:36)
[2021-03-30] MEDS: sertraline 50mg tablet PO SCH (20:36)
[2021-03-30] MEDS: montelukast 10mg tablet PO SCH (20:37)
[2021-03-30 22:00] VITALS: BP 119/59
[2021-03-31] MEDS: magnesium oxide 400mg tablet PO SCH ×3 (00:52→15:36)
[2021-03-31] MEDS: HYDROmorph./NS 0.2 mg/ml CADD 100 ML IV SCH ×5 (01:00→09:00)
[2021-03-31 02:00] VITALS: BP 111/55
[2021-03-31] MEDS: albuterol 2.5 MG/3 ML nebule NEB SCH ×4 (03:00→15:00)
[2021-03-31 05:53] LABS: BASOPHILS # (AUTO) 0.1 X10'3 (0-0.2); BASOPHILS % (AUTO) 0.7 % (0-1); EOSINOPHILS # (AUTO) 0.4 X10'3 (0-0.9); EOSINOPHILS % (AUTO) 4.7 % (0-6); HEMATOCRIT 35.2 % (35.0-45.0); HEMOGLOBIN 11.7 g/dl (12.0-16.0); LYMPHOCYTES # (AUTO) 1.5 X10'3 (1.1-4.8); LYMPHOCYTES % (AUTO) 18.7 % (21-51); MEAN CORPUSCULAR HEMOGLOBIN 29.1 PG (27.0-31.0); MEAN CORPUSCULAR HGB CONC 33.2 g/dL (33.0-36.5); MEAN CORPUSCULAR VOLUME 87.5 FL (78-98); MEAN PLATELET VOLUME 9.6 FL (7.4-10.4); MONOCYTES # (AUTO) 0.8 X10'3 (0-0.9); MONOCYTES % (AUTO) 9.1 % (2-12); NEUTROPHILS # (AUTO) 5.5 X10'3 (1.8-7.7); NEUTROPHILS % (AUTO) 66.8 % (42-75); PLATELET COUNT 281 X10'3 (140-440); RED BLOOD COUNT 4.02 X10'6 (4.20-5.60); RED CELL DISTRIBUTION WIDTH 13.7 % (11.5-14.5); WHITE BLOOD COUNT 8.2 X10'3 (4.5-11.0)
[2021-03-31 06:11] LABS: ALBUMIN 2.5 G/DL (3.4-5.0); ANION GAP 6 (8-16); BLOOD UREA NITROGEN 18 MG/DL (7-18); BUN/CREATININE RATIO 27.7 (6.6-38.0); CALCIUM 8.4 MG/DL (8.5-10.1); CHLORIDE 105 MMOL/L (99-107); CREATININE 0.65 MG/DL (0.40-0.90); GLUCOSE 108 MG/DL (70-104); POTASSIUM 4.6 MMOL/L (3.5-5.1); SODIUM 140 MMOL/L (135-145); TOTAL CARBON DIOXIDE 29.5 MMOL/L (24-32); eGFR > 90 ML/MIN
--- NOTE | 2021-03-31 06:18 | NUR ---
Patient in room PCU 3021. I have received report from ROMANA Olguin and had the opportunity to ask questions and assume patient care.
--- NOTE | 2021-03-31 06:18 | NUR ---
Problems reprioritized. Patient report given, questions answered & plan of care reviewed with Barbara AVENDANO and Leonela AVENDANO.
--- NOTE | 2021-03-31 06:32 | NUR ---
Patient in room PCU 3021. I have received report from ROMANA Olguin and had the opportunity to ask questions and assume patient care.
[2021-03-31 07:00] VITALS: BP 114/47
[2021-03-31] MEDS: busPIRone 15mg tablet PO SCH ×2 (07:20→14:31)
[2021-03-31] MEDS: pantoprazole 40mg Tablet.DR PO SCH (07:20)
[2021-03-31] MEDS: fenofibrate 48mg tablet PO SCH (07:20)
[2021-03-31] MEDS: cyanocobalamin 500mcg tablet PO SCH (07:20)
[2021-03-31] MEDS: calcium carbonate/vitamin D3 tablet PO SCH (07:20)
[2021-03-31] MEDS: docusate sod 100mg capsule PO SCH (07:20)
[2021-03-31] MEDS: gabapentin 300mg capsule PO SCH (07:20)
[2021-03-31] MEDS: cholecalciferol (vitamin D3) 1,000 unit (25mcg) tablet PO SCH (07:20)
[2021-03-31] MEDS: ascorbic acid 500mg tablet PO SCH (07:20)
[2021-03-31] MEDS: benzonatate 100mg capsule PO SCH ×2 (07:20→14:31)
[2021-03-31] MEDS: atenolol 50mg tablet PO SCH (07:23)
[2021-03-31] MEDS: levoTHYROXINE 100mcg tablet PO SCH (07:23)
[2021-03-31] MEDS: HYDROcodone/acetaminophen 5mg/325mg tablet PO PRN ×3 (07:24→15:34)
[2021-03-31] MEDS: multivitamins, therapeutics tablet PO SCH (07:24)
[2021-03-31] MEDS: ibuprofen tablet 400 MG TABLET PO SCH ×2 (07:26→14:31)
[2021-03-31] MEDS: fluticasone nasal spray 16GM bottle NS SCH (07:27)
[2021-03-31 11:00] VITALS: BP 111/53
--- NOTE | 2021-03-31 13:25 | NUR ---
Called Dr Stallings to discuss pt's discharge, he didn't answer, I left a message to call me back. Pt has been off of the Dilaudid CADD pump since 03/31/21 at 0900. Pt tolerating [place] 5/325 good.
--- NOTE | 2021-03-31 16:50 | NUR ---
[place] documentation: I have reviewed and agree with all interventions, assessments performed and documented by ROMANA Gipson.
--- NOTE | 2021-03-31 16:50 | NUR ---
[place] Medication Administration: For this medication-pass time frame, all medication were reviewed, dispensed, administered and documented per hospital policy by ROMANA Gipson.
--- NOTE | 2021-03-31 16:52 | NUR ---
pt is stable for dc per md orders. all dc instructions reviewed with pt and all questions answered. Follow up appointment made by pt. new prescriptions were called into [facility] on [facility] in [place]. PIV was dc. monitor technician was dc. belongings collected and sent with pt. pt was transported home by a family friend. wheeled to the [facility]. Addendum: 03/31/21 at 1722 by Leonela Mcdonnell RN Dr. Powell office [facility] (not [facility]).
== END 2021-03-31 16:56 | disposition home or self-care (01) | DRG 164 ==
LOC: PAS IN 06:27 → CICU 2S 16:10 → PCU 3S 03-28 18:00
PROVIDERS: ADMIT Surgery; ATTEND Surgery
PROC: 0BTD0ZZ Resection of Right Middle Lung Lobe, Open Approach (ICD-10-PCS; 2021-03-24)
PROC: 07B70ZZ Excision of Thorax Lymphatic, Open Approach (ICD-10-PCS; 2021-03-24)
PROC: 0BQ Respiratory System, Repair (ICD-10-PCS; 2021-03-24)
PROC: 0WBC0ZX Excision of Mediastinum, Open Approach, Diagnostic (ICD-10-PCS; 2021-03-24)
PROC: 0B5N0ZZ Destruction of Right Pleura, Open Approach (ICD-10-PCS; 2021-03-24)
PROC: 0BJ08ZZ Inspection of Tracheobronchial Tree, Via Natural or Artificial Opening Endoscopic (ICD-10-PCS; 2021-03-24)
PROC: 0W9900Z Drainage of Right Pleural Cavity with Drainage Device, Open Approach (ICD-10-PCS; 2021-03-24)
PROC: BW241ZZ Computerized Tomography (CT Scan) of Chest and Abdomen using Low Osmolar Contrast (ICD-10-PCS; 2021-03-24)
PROC: 0BTF0ZZ Resection of Right Lower Lung Lobe, Open Approach (ICD-10-PCS; principal; 2021-03-24 10:03)
DX: C34.31 Malignant neoplasm of lower lobe, right bronchus or lung (principal); C34.01 Malignant neoplasm of right main bronchus; J93.82 Other air leak
CPT/HCPCS: Z7506; Z7508; 36415; 36600; 71045; 71046; 71260; 80048; 80053; 81001; 82803; 82948; 83735; 84100; 84443; 85018; 85025; 85610; 85730; 86885; 86900; 86901; 87081; 93005; 94640; 94667; 94668; 94760; 97110; 97116; 97161; 97530; A4215; A4618; A6258; A6449; A7000; A7048; C1758; C9290; C9399; C9520; G0378; J0131; J1100; J1170; J1650; J1885; J2001; J2175; J2250; J2270; J2405; J2704; J2710; J3010; J3480; J3490; J7030; J7040; J7050; J7120; P9045; Q0163; Q9967

== ENCOUNTER 2021-04-17 11:34 | Outpatient (CLI) | payer BC ==
[~2021-04-17 11:34] MED LIST changes: -DOCUMENT DATE & TIME OF BETA-BLOCKER PO ONE; -clindamycin-Cleocin 900mg/D5W 50 ML IV ONE; -famotidine 20mg tablet PO ONE; -ringers solution, lacted 1,000 ML IV SCH
[2021-04-17 12:27] LABS: BASOPHILS # (AUTO) 0.1 X10'3 (0-0.2); BASOPHILS % (AUTO) 0.9 % (0-1); EOSINOPHILS # (AUTO) 0.4 X10'3 (0-0.9); EOSINOPHILS % (AUTO) 4.4 % (0-6); HEMATOCRIT 36.3 % (35.0-45.0); LYMPHOCYTES # (AUTO) 2.3 X10'3 (1.1-4.8); LYMPHOCYTES % (AUTO) 24.6 % (21-51); MEAN CORPUSCULAR HEMOGLOBIN 28.3 PG (27.0-31.0); MEAN CORPUSCULAR HGB CONC 33.1 g/dL (33.0-36.5); MEAN CORPUSCULAR VOLUME 85.5 FL (78-98); MEAN PLATELET VOLUME 9.2 FL (7.4-10.4); MONOCYTES # (AUTO) 0.8 X10'3 (0-0.9); MONOCYTES % (AUTO) 8.7 % (2-12); NEUTROPHILS # (AUTO) 5.8 X10'3 (1.8-7.7); NEUTROPHILS % (AUTO) 61.4 % (42-75); PLATELET COUNT 371 X10'3 (140-440); RED BLOOD COUNT 4.24 X10'6 (4.20-5.60); RED CELL DISTRIBUTION WIDTH 13.5 % (11.5-14.5); WHITE BLOOD COUNT 9.5 X10'3 (4.5-11.0)
[2021-04-17 12:41] LABS: CHLORIDE 102 MMOL/L (99-107); GLUCOSE 75 MG/DL (70-104); POTASSIUM 4.5 MMOL/L (3.5-5.1); SODIUM 139 MMOL/L (135-145)
[2021-04-17 12:42] LABS: ALANINE AMINOTRANSFERASE 29 U/L (12-78); ALBUMIN 3.2 G/DL (3.4-5.0); ALBUMIN/GLOBULIN RATIO 0.7 (1.1-1.5); ALKALINE PHOSPHATASE 143 IU/L (46-116); ANION GAP 10 (8-16); ASPARTATE AMINO TRANSFERASE 16 U/L (10-37); BILIRUBIN,TOTAL 0.3 MG/DL (0.1-1.0); BLOOD UREA NITROGEN 18 MG/DL (7-18); BUN/CREATININE RATIO 25.7 (6.6-38.0); CALCIUM 8.7 MG/DL (8.5-10.1); TOTAL CARBON DIOXIDE 27.5 MMOL/L (24-32); TOTAL PROTEIN 7.5 G/DL (6.4-8.2); eGFR 86 ML/MIN
== END 2021-04-17 23:59 | disposition home or self-care (01) ==
LOC: LAB 11:34
PROVIDERS: ATTEND Internal Medicine Hematology & Oncology
DX: C34.31 Malignant neoplasm of lower lobe, right bronchus or lung (principal)
CPT/HCPCS: 36415; 80053; 82378; 85025

== ENCOUNTER → 2021-04-20 | Outpatient (CLI) | payer BC ==
[~2021-04-20] MED LIST changes: +CYCL-1 PO; +HYDR-3965 PO
== END | disposition home or self-care (01) ==
LOC: RAD 08:41
PROVIDERS: ATTEND Internal Medicine Hematology & Oncology
DX: C34.31 Malignant neoplasm of lower lobe, right bronchus or lung (principal); R93.7 Abnormal findings on diagnostic imaging of other parts of musculoskeletal system; Z53.21 Procedure and treatment not carried out due to patient leaving prior to being seen by health care provider

== ENCOUNTER → 2021-04-20 | Outpatient (CLI) | payer BC ==
[~2021-04-20] MED LIST changes: -CYCL-1 PO
== END | disposition home or self-care (01) ==
LOC: 64 CT 08:32
PROVIDERS: ATTEND Surgery
DX: J90 Pleural effusion, not elsewhere classified (principal); R59.0 Localized enlarged lymph nodes; M47.819 Spondylosis without myelopathy or radiculopathy, site unspecified; I70.0 Atherosclerosis of aorta; Z98.890 Other specified postprocedural states
CPT/HCPCS: 71250

== ENCOUNTER 2021-04-25 12:22 | Outpatient (CLI) | payer BC ==
[~2021-04-25 12:22] MED LIST changes: -HYDR-3965 PO
[2021-04-25 13:22] LABS: BASOPHILS # (AUTO) 0.1 X10'3 (0-0.2); BASOPHILS % (AUTO) 1.3 % (0-1); EOSINOPHILS # (AUTO) 0.3 X10'3 (0-0.9); EOSINOPHILS % (AUTO) 4.2 % (0-6); HEMATOCRIT 35.8 % (35.0-45.0); HEMOGLOBIN 11.9 g/dl (12.0-16.0); LYMPHOCYTES # (AUTO) 2.1 X10'3 (1.1-4.8); LYMPHOCYTES % (AUTO) 25.9 % (21-51); MEAN CORPUSCULAR HEMOGLOBIN 28.4 PG (27.0-31.0); MEAN CORPUSCULAR HGB CONC 33.2 g/dL (33.0-36.5); MEAN CORPUSCULAR VOLUME 85.5 FL (78-98); MEAN PLATELET VOLUME 9.9 FL (7.4-10.4); MONOCYTES # (AUTO) 0.6 X10'3 (0-0.9); MONOCYTES % (AUTO) 7.1 % (2-12); NEUTROPHILS # (AUTO) 5.1 X10'3 (1.8-7.7); NEUTROPHILS % (AUTO) 61.5 % (42-75); PLATELET COUNT 309 X10'3 (140-440); RED BLOOD COUNT 4.19 X10'6 (4.20-5.60); RED CELL DISTRIBUTION WIDTH 13.8 % (11.5-14.5); WHITE BLOOD COUNT 8.3 X10'3 (4.5-11.0)
[2021-04-25 13:29] LABS: ALANINE AMINOTRANSFERASE 26 U/L (12-78); ALBUMIN 3.4 G/DL (3.4-5.0); ALBUMIN/GLOBULIN RATIO 0.7 (1.1-1.5); ALKALINE PHOSPHATASE 127 IU/L (46-116); ANION GAP 8 (8-16); ASPARTATE AMINO TRANSFERASE 15 U/L (10-37); BILIRUBIN,TOTAL 0.3 MG/DL (0.1-1.0); BLOOD UREA NITROGEN 16 MG/DL (7-18); BUN/CREATININE RATIO 22.2 (6.6-38.0); CALCIUM 8.6 MG/DL (8.5-10.1); CHLORIDE 105 MMOL/L (99-107); CREATININE 0.72 MG/DL (0.40-0.90); GLUCOSE 97 MG/DL (70-104); SODIUM 141 MMOL/L (135-145); TOTAL CARBON DIOXIDE 28.4 MMOL/L (24-32); eGFR 83 ML/MIN
== END 2021-04-25 23:59 | disposition home or self-care (01) ==
LOC: LAB 12:22
PROVIDERS: ATTEND Internal Medicine Hematology & Oncology
DX: C34.31 Malignant neoplasm of lower lobe, right bronchus or lung (principal)
CPT/HCPCS: 36415; 80053; 82378; 85025

== ENCOUNTER 2021-05-02 06:31 | Observation (INO) | payer BC ==
[~2021-05-02] VITALS: Ht 170.2 cm; Wt 106.5 kg
[2021-05-02] VITALS (12 sets, daily range): BP systolic 70–135; BP diastolic 34–68
[2021-05-02] MEDS ORDERED: normal saline 1000ml 1,000 ML IV SCH (07:10)
[2021-05-02] MEDS ORDERED: HYDR-3965 PO (07:42)
[2021-05-02 08:34] LABS: BASOPHILS # (AUTO) 0.1 X10'3 (0-0.2); BASOPHILS % (AUTO) 0.9 % (0-1); EOSINOPHILS # (AUTO) 0.3 X10'3 (0-0.9); EOSINOPHILS % (AUTO) 3.6 % (0-6); HEMATOCRIT 35.4 % (35.0-45.0); HEMOGLOBIN 11.7 g/dl (12.0-16.0); LYMPHOCYTES # (AUTO) 1.8 X10'3 (1.1-4.8); MEAN CORPUSCULAR HEMOGLOBIN 27.8 PG (27.0-31.0); MEAN CORPUSCULAR VOLUME 84.4 FL (78-98); MEAN PLATELET VOLUME 9.6 FL (7.4-10.4); MONOCYTES # (AUTO) 0.7 X10'3 (0-0.9); NEUTROPHILS # (AUTO) 4.5 X10'3 (1.8-7.7); NEUTROPHILS % (AUTO) 61.5 % (42-75); PLATELET COUNT 286 X10'3 (140-440); RED BLOOD COUNT 4.19 X10'6 (4.20-5.60); RED CELL DISTRIBUTION WIDTH 13.7 % (11.5-14.5); WHITE BLOOD COUNT 7.3 X10'3 (4.5-11.0)
[2021-05-02] MEDS ORDERED: LIDOcaine 1%/PF 5ML 10 MG/ML VIAL ONE (09:06)
[2021-05-02] MEDS ORDERED: heparin sodium, porcine/PF 100unit/ml 5ML syringe ONE (09:06)
[2021-05-02] MEDS ORDERED: midazolam 1 mg/ML 2ml injection ONE ×2 (09:06→09:43)
[2021-05-02] MEDS ORDERED: fentaNYL/PF 50MCG/1 ML 2ML syringe ONE ×2 (09:07→10:00)
[2021-05-02] MEDS ORDERED: ondansetron/PF 4mg/2ml inj ONE (10:19)
--- NOTE | 2021-05-02 11:45 | NUR ---
Patient persistently hypotensive post port placement, manual bp reflects accurate auto cuff readings, pt asymptomatic at this time, fluid bolus [address] De La Torre.
[2021-05-02] MEDS ORDERED: acetaminophen 325mg tablet PO PRN ×3 (13:55→15:55)
--- NOTE | 2021-05-02 14:30 | NUR ---
Patient c/o persistent left sided pain with deep breaths and movement. Dr De La Torre made aware, ordered tylenol and patient seen by him.
[2021-05-02 15:15] LABS: BASOPHILS # (AUTO) 0.1 X10'3 (0-0.2); BASOPHILS % (AUTO) 0.5 % (0-1); EOSINOPHILS # (AUTO) 0.2 X10'3 (0-0.9); EOSINOPHILS % (AUTO) 1.3 % (0-6); HEMATOCRIT 31.3 % (35.0-45.0); HEMOGLOBIN 10.3 g/dl (12.0-16.0); LYMPHOCYTES # (AUTO) 1.6 X10'3 (1.1-4.8); LYMPHOCYTES % (AUTO) 13.6 % (21-51); MEAN CORPUSCULAR HEMOGLOBIN 27.5 PG (27.0-31.0); MEAN CORPUSCULAR HGB CONC 32.8 g/dL (33.0-36.5); MEAN CORPUSCULAR VOLUME 83.6 FL (78-98); MEAN PLATELET VOLUME 9.5 FL (7.4-10.4); MONOCYTES # (AUTO) 0.7 X10'3 (0-0.9); MONOCYTES % (AUTO) 5.5 % (2-12); NEUTROPHILS # (AUTO) 9.4 X10'3 (1.8-7.7); NEUTROPHILS % (AUTO) 79.1 % (42-75); PLATELET COUNT 297 X10'3 (140-440); RED BLOOD COUNT 3.74 X10'6 (4.20-5.60); RED CELL DISTRIBUTION WIDTH 13.7 % (11.5-14.5); WHITE BLOOD COUNT 11.9 X10'3 (4.5-11.0)
[2021-05-02] MEDS ORDERED: aspirin 81mg tab.chew PO ONE (15:30)
[2021-05-02] MEDS ORDERED: HYDROmorphone 1 mg/ml syringe IV ONE (15:40)
[2021-05-02] MEDS ORDERED: albuterol 2.5 MG/3 ML nebule NEB PRN (15:55)
[2021-05-02] MEDS ORDERED: potassium Cl 40MEQ/1/2NS 520ml 520 ML IV PRN ×2 (15:55)
[2021-05-02] MEDS ORDERED: mag hydrox/Alum hydrox/simeth 30ml oral suspension PO PRN (15:55)
[2021-05-02] MEDS ORDERED: magnesium 2GM in 50ml NS 50 ML IV PRN (15:55)
[2021-05-02] MEDS ORDERED: ondansetron/PF 4mg/2ml inj IV PRN (15:55)
[2021-05-02] MEDS ORDERED: ipratropium/albuterol 3ml nebule NEB PRN (15:55)
[2021-05-02] MEDS ORDERED: magnesium hydroxide 30ml (MOM) UD suspension PO PRN (15:55)
[2021-05-02] MEDS ORDERED: potassium Cl 20 mEq SR tablet PO PRN ×2 (15:55)
[2021-05-02] MEDS ORDERED: magnesium 4gm in 100ml NS 100 ML IV PRN (15:55)
[2021-05-02] MEDS ORDERED: HYDROcodone/acetaminophen 10/325mg tab PO PRN (15:55)
--- NOTE | 2021-05-02 16:00 | NUR ---
continues to c/o left side pain as well as "all over" chest discomfort. Seen by Dr De La Torre, ekg and trops ordered. Being admitted by hospitalist Dr Calvillo. States the tylenol helped a little.
[2021-05-02] MEDS ORDERED: ALPRAZolam 0.25mg tablet PO PRN (17:15)
[2021-05-02] MEDS ORDERED: ACETAMINOPHEN 650 MG PO PRN (17:15)
[2021-05-02] MEDS ORDERED: HYDROcodone/acetaminophen 5mg/325mg tablet PO PRN (17:15)
--- NOTE | 2021-05-02 19:15 | NUR ---
Patient transported to Tele floor 3016B with all belongings and report given to ROMANA Plunkett.
[2021-05-02] MEDS ORDERED: enoxaparin 40mg/0.4ml syringe SQ SCH (20:00)
[2021-05-02] MEDS: K and/or MAG REPLACEMENT MC SCH (20:00)
[2021-05-02] MEDS: calcium carbonate/vitamin D3 tablet PO SCH (20:07)
[2021-05-02] MEDS: busPIRone 15mg tablet PO SCH (20:07)
[2021-05-02] MEDS: benzonatate 100mg capsule PO SCH (20:07)
[2021-05-02] MEDS: docusate sod 100mg capsule PO SCH (20:08)
[2021-05-02] MEDS: HYDROcodone/acetaminophen 5mg/325mg tablet PO PRN (20:09)
[2021-05-02] MEDS: normal saline 1000ml 1,000 ML IV SCH (20:12)
[2021-05-02] MEDS ORDERED: traZODone 50mg tablet PO SCH (21:00)
[2021-05-02] MEDS ORDERED: montelukast 10mg tablet PO SCH (21:00)
[2021-05-02] MEDS ORDERED: cetirizine 10mg tablet PO SCH (21:00)
[2021-05-02] MEDS ORDERED: sertraline 50mg tablet PO SCH (21:00)
[2021-05-02 21:16] LABS: HEMOGLOBIN 9.6 g/dl (12.0-16.0); MEAN CORPUSCULAR HEMOGLOBIN 27.6 PG (27.0-31.0); MEAN CORPUSCULAR HGB CONC 32.2 g/dL (33.0-36.5); MEAN CORPUSCULAR VOLUME 85.8 FL (78-98); MEAN PLATELET VOLUME 9.6 FL (7.4-10.4); PLATELET COUNT 256 X10'3 (140-440); RED BLOOD COUNT 3.49 X10'6 (4.20-5.60); RED CELL DISTRIBUTION WIDTH 13.7 % (11.5-14.5); WHITE BLOOD COUNT 8.7 X10'3 (4.5-11.0)
[2021-05-02] MEDS: HYDROmorphone inj. 0.5 MG/0.5 ML DISP.SYRIN IV PRN (22:19)
[2021-05-03] MEDS: gabapentin 300mg capsule PO SCH ×2 (00:41→07:24)
[2021-05-03] MEDS: fluticasone nasal spray 16GM bottle NS SCH ×2 (00:42→07:22)
[2021-05-03] MEDS: normal saline 1000ml 1,000 ML IV SCH (00:45)
[2021-05-03 02:00] VITALS: BP 120/67
[2021-05-03] MEDS: HYDROmorphone inj. 0.5 MG/0.5 ML DISP.SYRIN IV PRN (02:19)
--- NOTE | 2021-05-03 06:05 | NUR ---
Problems reprioritized. Patient report given, questions answered & plan of care reviewed with ROMANA Orozco.
[2021-05-03 06:08] LABS: HEMATOCRIT 29.3 % (35.0-45.0); HEMOGLOBIN 9.8 g/dl (12.0-16.0); MEAN CORPUSCULAR HEMOGLOBIN 28.1 PG (27.0-31.0); MEAN CORPUSCULAR HGB CONC 33.3 g/dL (33.0-36.5); MEAN CORPUSCULAR VOLUME 84.4 FL (78-98); MEAN PLATELET VOLUME 9.8 FL (7.4-10.4); PLATELET COUNT 266 X10'3 (140-440); RED BLOOD COUNT 3.47 X10'6 (4.20-5.60); RED CELL DISTRIBUTION WIDTH 13.7 % (11.5-14.5); WHITE BLOOD COUNT 8.6 X10'3 (4.5-11.0)
[2021-05-03 06:15] LABS: ALANINE AMINOTRANSFERASE 32 U/L (12-78); ALBUMIN 3.3 G/DL (3.4-5.0); ALBUMIN/GLOBULIN RATIO 0.9 (1.1-1.5); ALKALINE PHOSPHATASE 129 IU/L (46-116); ANION GAP 11 (8-16); ASPARTATE AMINO TRANSFERASE 18 U/L (10-37); BILIRUBIN,TOTAL 0.3 MG/DL (0.1-1.0); BLOOD UREA NITROGEN 20 MG/DL (7-18); CALCIUM 8.9 MG/DL (8.5-10.1); CHLORIDE 104 MMOL/L (99-107); CREATININE 0.69 MG/DL (0.40-0.90); GLUCOSE 110 MG/DL (70-104); POTASSIUM 4.1 MMOL/L (3.5-5.1); SODIUM 140 MMOL/L (135-145); TOTAL CARBON DIOXIDE 25.2 MMOL/L (24-32); TOTAL PROTEIN 6.8 G/DL (6.4-8.2); eGFR 87 ML/MIN
[2021-05-03 06:19] LABS: MAGNESIUM 1.9 MG/DL (1.5-2.4)
--- NOTE | 2021-05-03 06:21 | NUR ---
Patient in room PCU 3016. I have received report from Kiarra AVENDANO and Leonela AVENDANO and had the opportunity to ask questions and assume patient care.
[2021-05-03 07:00] VITALS: BP 141/77
[2021-05-03] MEDS ORDERED: levoTHYROXINE 100mcg tablet PO SCH (07:00)
--- NOTE | 2021-05-03 07:05 | NUR ---
[place] Medication Administration: For this medication-pass time frame, all medication were reviewed, dispensed, administered and documented per hospital policy by ROMANA Gipson.
--- NOTE | 2021-05-03 07:05 | NUR ---
[place] documentation: I have reviewed and agree with all interventions, assessments performed and documented by ROMANA Gipson.
[2021-05-03] MEDS: docusate sod 100mg capsule PO SCH (07:22)
[2021-05-03] MEDS: busPIRone 15mg tablet PO SCH ×2 (07:22→14:12)
[2021-05-03] MEDS: HYDROcodone/acetaminophen 5mg/325mg tablet PO PRN ×2 (07:24→11:40)
[2021-05-03] MEDS: calcium carbonate/vitamin D3 tablet PO SCH (07:25)
[2021-05-03] MEDS: benzonatate 100mg capsule PO SCH ×2 (07:25→14:12)
[2021-05-03] MEDS ORDERED: ascorbic acid 500mg tablet PO SCH (08:00)
[2021-05-03] MEDS ORDERED: cholecalciferol (vitamin D3) 1,000 unit (25mcg) tablet PO SCH (08:00)
[2021-05-03] MEDS ORDERED: atorvastatin 20mg tablet PO SCH (08:00)
[2021-05-03] MEDS ORDERED: fenofibrate 48mg tablet PO SCH (08:00)
[2021-05-03] MEDS: K and/or MAG REPLACEMENT MC SCH (08:00)
[2021-05-03] MEDS ORDERED: multivitamins, therapeutics tablet PO SCH (08:00)
[2021-05-03] MEDS ORDERED: cyanocobalamin 500mcg tablet PO SCH (08:00)
[2021-05-03] MEDS ORDERED: pantoprazole 40mg Tablet.DR PO SCH (08:00)
[2021-05-03 11:00] VITALS: BP 112/62
--- NOTE | 2021-05-03 14:45 | NUR ---
Pt stable for discharge per MD orders. All discharge instructions reviewed with pt and all questions answered. PIV discontinued. cannula intact. monitoring coordinator discontinued. no new Rx. pt declined to have this nurse make follow up appointment with her PCP. pt to see her oncologist Dr. Alexis dugan. she missed her appointment today and Dr. Espinoza's office stated they would call her tomorrow to reschedule appointment. belongings collected and sent with pt including cell phone. pt wheeled to [facility] [employer] where she was met by her sister. Pt loaded up in private vehicle and left. pt left with mild pain, but without s/sx acute distress.
== END 2021-05-03 14:45 | disposition home health service (06) ==
LOC: SSTAY O 06:31 → PCU 3S 15:58
PROVIDERS: ADMIT Family Medicine; ATTEND Radiology Vascular & Interventional Radiology
DX: C34.31 Malignant neoplasm of lower lobe, right bronchus or lung (principal); E78.00 Pure hypercholesterolemia, unspecified; I10 Essential (primary) hypertension; E03.9 Hypothyroidism, unspecified; J44.9 Chronic obstructive pulmonary disease, unspecified; G89.29 Other chronic pain; F41.9 Anxiety disorder, unspecified; Z90.49 Acquired absence of other specified parts of digestive tract; Z90.710 Acquired absence of both cervix and uterus; Z87.891 Personal history of nicotine dependence; Z88.0 Allergy status to penicillin; Z88.2 Allergy status to sulfonamides; Z79.899 Other long term (current) drug therapy
CPT/HCPCS: 36415; 36561; 71045; 76604; 76937; 77001; 80053; 83735; 84484; 85025; 85027; 87081; 93005; 94760; 96372; 96374; 96376; 97161; 97530; C1788; C1894; G0378; J1170; J1642; J2250; J2405; J3010; J7030; 99152; 99153; A6213; J1650

== ENCOUNTER 2021-05-07 05:24 | Inpatient (IN) | payer BC ==
[~2021-05-07] VITALS: Ht 170.2 cm; Wt 106.4 kg
[~2021-05-07 05:24] MED LIST changes: +HYDR-3965 PO; -IBUP-1986 PO
[2021-05-07] MEDS ORDERED: iohexol 350MG/ML 100ml bottle IV ONE (05:48)
[2021-05-07] MEDS ORDERED: morphine 10mg/ml inj. IV ONE (05:50)
[2021-05-07 06:15] LABS: BASOPHILS # (AUTO) 0.1 X10'3 (0-0.2); BASOPHILS % (AUTO) 0.7 % (0-1); EOSINOPHILS # (AUTO) 0.2 X10'3 (0-0.9); EOSINOPHILS % (AUTO) 2.1 % (0-6); HEMATOCRIT 32.2 % (35.0-45.0); HEMOGLOBIN 10.5 g/dl (12.0-16.0); LYMPHOCYTES % (AUTO) 17.6 % (21-51); MEAN CORPUSCULAR HEMOGLOBIN 27.7 PG (27.0-31.0); MEAN CORPUSCULAR HGB CONC 32.5 g/dL (33.0-36.5); MEAN CORPUSCULAR VOLUME 85.2 FL (78-98); MEAN PLATELET VOLUME 9.5 FL (7.4-10.4); MONOCYTES # (AUTO) 1.3 X10'3 (0-0.9); MONOCYTES % (AUTO) 10.9 % (2-12); NEUTROPHILS # (AUTO) 7.9 X10'3 (1.8-7.7); NEUTROPHILS % (AUTO) 68.7 % (42-75); PLATELET COUNT 321 X10'3 (140-440); RED BLOOD COUNT 3.78 X10'6 (4.20-5.60); RED CELL DISTRIBUTION WIDTH 13.9 % (11.5-14.5); WHITE BLOOD COUNT 11.5 X10'3 (4.5-11.0)
[2021-05-07 06:30] LABS: ALANINE AMINOTRANSFERASE 28 U/L (12-78); ALBUMIN 3.4 G/DL (3.4-5.0); ALBUMIN/GLOBULIN RATIO 0.8 (1.1-1.5); ALKALINE PHOSPHATASE 161 IU/L (46-116); ANION GAP 13 (8-16); ASPARTATE AMINO TRANSFERASE 21 U/L (10-37); BILIRUBIN,TOTAL 0.6 MG/DL (0.1-1.0); BLOOD UREA NITROGEN 16 MG/DL (7-18); BUN/CREATININE RATIO 21.1 (6.6-38.0); CALCIUM 9.2 MG/DL (8.5-10.1); CHLORIDE 105 MMOL/L (99-107); CREATININE 0.76 MG/DL (0.40-0.90); GLUCOSE 132 MG/DL (70-104); SODIUM 142 MMOL/L (135-145); TOTAL CARBON DIOXIDE 24.3 MMOL/L (24-32); TOTAL PROTEIN 7.6 G/DL (6.4-8.2); eGFR 78 ML/MIN
[2021-05-07 06:31] LABS: POTASSIUM 4.2 MMOL/L (3.5-5.1)
[2021-05-07 06:41] LABS: TROPONIN I < 0.04 NG/ML (0.0-0.05)
[2021-05-07] MEDS ORDERED: morphine 4 MG/ML inj SYRINge IV ONE (06:50)
--- NOTE | 2021-05-07 08:25 | NUR ---
patient expresses breakthrough pain despite recieving morphine. patient reports taking norco and gabapentin at home but currently experiencing 10/10 pain under her left arm
[2021-05-07] MEDS ORDERED: ondansetron/PF 4mg/2ml inj IV ONE (09:15)
[2021-05-07] MEDS ORDERED: fentaNYL/PF 50MCG/1 ML 2ML syringe IV ONE (09:15)
[2021-05-07] MEDS ORDERED: magnesium hydroxide 30ml (MOM) UD suspension PO PRN (09:20)
[2021-05-07] MEDS ORDERED: mag hydrox/Alum hydrox/simeth 30ml oral suspension PO PRN (09:20)
[2021-05-07] MEDS ORDERED: acetaminophen 325mg tablet PO PRN (09:20)
[2021-05-07] MEDS: normal saline 1000ml 1,000 ML IV SCH (09:42)
[2021-05-07] MEDS: docusate sod 100mg capsule PO SCH (10:52)
[2021-05-07] MEDS: morphine 2 MG/ML inj. syringe IV PRN ×4 (11:07→20:50)
--- NOTE | 2021-05-07 12:48 | NUR ---
PAGE SENT TO MAZIN RAMOS RESTLESS, PAIN NOT RELIEVED WITH MORPHINE 2 MG IVP PER MD ORDER (SEE EMAR), MAZIN REQUESTING MEDRANO CATHETER. MAZIN ASSISTED TO BEDSIDE COMMODE WITH STANDBY ASSIST.
[2021-05-07] MEDS ORDERED: CYCL-1 PO (13:02)
--- NOTE | 2021-05-07 13:46 | NUR ---
pt reports pain 7/10 after recieving 0.5ml of morphine 2mg. pt requesting additional pillow and reports chest tightness and bloating.
--- NOTE | 2021-05-07 14:43 | NUR ---
RECIEVED VERBAL ORDER FROM TAL REGARDING PT ANXIETY AND BREAKTHROUGH PAIN. NORCO 10 Q4HR AND ATIVAN 05MG ORDERED
[2021-05-07] MEDS ORDERED: LORazepam 2 mg/ml vial IV ONE (14:45)
[2021-05-07] MEDS: HYDROcodone/acetaminophen 10/325mg tab PO PRN ×2 (14:51→21:53)
[2021-05-07] MEDS: gabapentin 300mg capsule PO SCH (16:28)
[2021-05-07] MEDS ORDERED: atenolol 25mg tablet PO ONE (18:20)
--- NOTE | 2021-05-07 19:14 | NUR ---
patient extremely anxious and in a lot pain, cannot get out of bed, have a page out for Dr. Linares for orders.
[2021-05-07] MEDS: cefepime 2g/NS 100ml ADVANTAGE 100 ML IV SCH (20:00)
[2021-05-07] MEDS: cyclobenzaprine 10mg tablet PO SCH (20:33)
[2021-05-07] MEDS: sertraline 50mg tablet PO SCH (20:33)
[2021-05-07] MEDS: benzonatate 100mg capsule PO SCH (20:33)
[2021-05-07] MEDS: calcium carbonate/vitamin D3 tablet PO SCH (20:33)
[2021-05-07] MEDS: montelukast 10mg tablet PO SCH (20:33)
[2021-05-07] MEDS: enoxaparin 30mg/0.3ml syringe SQ SCH (20:33)
[2021-05-07] MEDS: busPIRone 15mg tablet PO SCH (20:33)
[2021-05-07] MEDS: cetirizine 10mg tablet PO SCH (20:34)
[2021-05-07] MEDS: traZODone 50mg tablet PO SCH (20:47)
[2021-05-07] MEDS: ondansetron/PF 4mg/2ml inj IV PRN (20:50)
[2021-05-07] MEDS: ALPRAZolam 0.25mg tablet PO PRN (21:00)
--- NOTE | 2021-05-07 23:21 | NUR ---
Aydee AVENDANO and I put work order on room 11, scanner has not worked for weeks for [employer]. engineering aware.
[2021-05-08] MEDS: gabapentin 300mg capsule PO SCH ×3 (00:53→16:00)
[2021-05-08] MEDS: ALPRAZolam 0.25mg tablet PO PRN ×5 (01:01→22:57)
[2021-05-08] MEDS: morphine 2 MG/ML inj. syringe IV PRN ×5 (01:01→22:58)
--- NOTE | 2021-05-08 01:22 | NUR ---
patient pain is not under control will page Dr. Linares for orders.
--- NOTE | 2021-05-08 01:30 | NUR ---
Dr. Linares called back and stated that she will not order patient any more pain meds despite patient pain not under control.
[2021-05-08] MEDS: HYDROcodone/acetaminophen 10/325mg tab PO PRN ×2 (05:09→17:54)
[2021-05-08] MEDS: levoTHYROXINE 100mcg tablet PO SCH (07:00)
[2021-05-08] MEDS: albuterol 2.5 MG/3 ML nebule NEB PRN (07:10)
[2021-05-08 07:29] LABS: BASOPHILS # (AUTO) 0.1 X10'3 (0-0.2); BASOPHILS % (AUTO) 0.6 % (0-1); EOSINOPHILS # (AUTO) 0.1 X10'3 (0-0.9); EOSINOPHILS % (AUTO) 0.4 % (0-6); HEMATOCRIT 32.7 % (35.0-45.0); HEMOGLOBIN 10.5 g/dl (12.0-16.0); LYMPHOCYTES # (AUTO) 1.7 X10'3 (1.1-4.8); LYMPHOCYTES % (AUTO) 11.1 % (21-51); MEAN CORPUSCULAR HGB CONC 32.2 g/dL (33.0-36.5); MEAN CORPUSCULAR VOLUME 83.9 FL (78-98); MEAN PLATELET VOLUME 9.3 FL (7.4-10.4); MONOCYTES # (AUTO) 1.7 X10'3 (0-0.9); MONOCYTES % (AUTO) 10.9 % (2-12); NEUTROPHILS # (AUTO) 11.8 X10'3 (1.8-7.7); PLATELET COUNT 367 X10'3 (140-440); RED CELL DISTRIBUTION WIDTH 14.2 % (11.5-14.5); WHITE BLOOD COUNT 15.3 X10'3 (4.5-11.0)
[2021-05-08 07:40] LABS: ALBUMIN 3.2 G/DL (3.4-5.0); ANION GAP 12 (8-16); BLOOD UREA NITROGEN 17 MG/DL (7-18); BUN/CREATININE RATIO 23.3 (6.6-38.0); CALCIUM 9.4 MG/DL (8.5-10.1); CHLORIDE 101 MMOL/L (99-107); CREATININE 0.73 MG/DL (0.40-0.90); GLUCOSE 146 MG/DL (70-104); POTASSIUM 4.5 MMOL/L (3.5-5.1); SODIUM 139 MMOL/L (135-145); TOTAL CARBON DIOXIDE 25.9 MMOL/L (24-32); eGFR 82 ML/MIN
[2021-05-08] MEDS: fluticasone nasal spray 16GM bottle NS SCH (08:26)
[2021-05-08] MEDS: busPIRone 15mg tablet PO SCH ×3 (08:26→20:33)
[2021-05-08] MEDS: docusate sod 100mg capsule PO SCH ×2 (08:27→20:29)
[2021-05-08] MEDS: atorvastatin 20mg tablet PO SCH (08:28)
[2021-05-08] MEDS: cyclobenzaprine 10mg tablet PO SCH ×3 (08:28→20:33)
[2021-05-08] MEDS: calcium carbonate/vitamin D3 tablet PO SCH ×2 (08:29→20:30)
[2021-05-08] MEDS: benzonatate 100mg capsule PO SCH ×3 (08:30→20:34)
[2021-05-08] MEDS: pantoprazole 40mg Tablet.DR PO SCH (08:30)
[2021-05-08] MEDS: fenofibrate 48mg tablet PO SCH (08:31)
[2021-05-08] MEDS: ascorbic acid 500mg tablet PO SCH (08:31)
[2021-05-08] MEDS: cyanocobalamin 500mcg tablet PO SCH (08:32)
[2021-05-08] MEDS: cholecalciferol (vitamin D3) 1,000 unit (25mcg) tablet PO SCH (08:32)
[2021-05-08] MEDS: multivitamins, therapeutics tablet PO SCH (08:32)
[2021-05-08] MEDS: enoxaparin 30mg/0.3ml syringe SQ SCH ×2 (08:33→20:30)
[2021-05-08] MEDS: atenolol 25mg tablet PO SCH (08:34)
[2021-05-08] MEDS: cefepime 2g/NS 100ml ADVANTAGE 100 ML IV SCH ×2 (08:35→22:47)
--- NOTE | 2021-05-08 09:17 | NUR ---
isaura sister [phone]
--- NOTE | 2021-05-08 09:25 | NUR ---
pt placed in a hospital bed. pt sob
--- NOTE | 2021-05-08 09:28 | NUR ---
pt sisters came to visit.
[2021-05-08] MEDS ORDERED: LORazepam 2 mg/ml vial IV ONE (10:55)
--- NOTE | 2021-05-08 10:55 | NUR ---
pt increased sob, and increase anxiety. reported to dr. yap. please see new orders. dr. yap also requested to call ir and see when pt will be going down for tap.
--- NOTE | 2021-05-08 11:12 | NUR ---
SPOKE WITH IR AND SAID DR. CARDOZA WILL CALL DR. PARADA.
--- NOTE | 2021-05-08 11:36 | NUR ---
ATIVAN EFFECTIVE. PT CALM SITTING UP IN BED, RR 24.
--- NOTE | 2021-05-08 12:30 | NUR ---
daniela [facility] - [phone]
--- NOTE | 2021-05-08 12:36 | NUR ---
dr. gurrola at bedside performing thoracentesis. vss
[2021-05-08 12:40] VITALS: BP 123/92
[2021-05-08 12:50] VITALS: BP 129/62
[2021-05-08 15:15] LABS: GLUCOSE,BODY FLUID 101 MG/DL; LDH,BODY FLUID 2969 U/L
[2021-05-08 15:24] LABS: LYMPHOCYTES,BODY FLUID 4 %; MONOCYTES,BODY FLUID 19 %; NEUTROPHILS,BODY FLUID 77 %
[2021-05-08 15:25] LABS: BF RBC COUNT 950000 /CU MM; BF WBC COUNT 2750 /CU MM (0-1000); BFAPPEAR BLOODY; BFCOLOR RED; BFVOLUME 65 ML
--- NOTE | 2021-05-08 17:50 | NUR ---
1245 dr. gurrola finished thoracentesis. pulled off 900cc blood tinged fluid. pt asked to stop thoracentesis due to pain. dr. gurrola stopped.
--- NOTE | 2021-05-08 17:52 | NUR ---
pt c/o upper back, rib and chest area on right side. norco given.
--- NOTE | 2021-05-08 19:03 | NUR ---
Patient in room ED 11. I have received report from TIRE ASSEMBLERVENKATA and had the opportunity to ask questions and will assume patient care upon arrival to room 3019. Addendum: 05/08/21 at 1904 by Olivia Mueller RN Amended: Links added.
--- NOTE | 2021-05-08 19:10 | NUR ---
received pt on the floor to room 3019 and oriented to the room water and supplies provided . given tv and call light.
[2021-05-08 19:40] VITALS: BP 131/83
--- NOTE | 2021-05-08 20:12 | NUR ---
pt leaked some urine lien changed and skin care pure wicc teaching done and attached to pt after 2 person skin check done and repositioning up in bed.
[2021-05-08] MEDS: montelukast 10mg tablet PO SCH (20:29)
[2021-05-08] MEDS: sertraline 50mg tablet PO SCH (20:29)
[2021-05-08] MEDS: traZODone 50mg tablet PO SCH (20:29)
[2021-05-08 22:00] VITALS: BP 164/68
[2021-05-08] MEDS: cetirizine 10mg tablet PO SCH (22:48)
--- NOTE | 2021-05-08 23:10 | NUR ---
pt only took one xanax .25mg tab at this time and iv morphine 2 mg for pain and anxiety.
[2021-05-09] MEDS: gabapentin 300mg capsule PO SCH ×3 (01:13→16:53)
--- NOTE | 2021-05-09 01:20 | NUR ---
pt ancious resp sob severe medicated for pain.
--- NOTE | 2021-05-09 01:25 | NUR ---
attempt x2 to start a second iv, infiltrated. pt only has positional left ac iv. ns infusing @20/hr.
[2021-05-09] MEDS: HYDROcodone/acetaminophen 10/325mg tab PO PRN ×3 (01:27→16:53)
--- NOTE | 2021-05-09 05:58 | NUR ---
pt resting despite norco dose morphine xanax given on the floor and Er along with Er dose of ativan pt heart rate 110-130 with pairs and triplets and multifocals reported by the telecommunications network engineer on her.
[2021-05-09 06:00] VITALS: BP 156/84
[2021-05-09] MEDS: morphine 2 MG/ML inj. syringe IV PRN ×3 (06:04→19:22)
--- NOTE | 2021-05-09 06:08 | NUR ---
pt awoke c/o pain 04/04 and medicated with morphine for this. repositioned the pure wick. pt clean and dry.
--- NOTE | 2021-05-09 06:22 | NUR ---
Problems reprioritized. Patient report given, questions answered & plan of care reviewed with EDWIN AVENDANO. Addendum: 05/09/21 at 0623 by Olivia Mueller RN Amended: Links added.
[2021-05-09 06:45] LABS: ALBUMIN 2.7 G/DL (3.4-5.0); ANION GAP 7 (8-16); BASOPHILS # (AUTO) 0.1 X10'3 (0-0.2); BASOPHILS % (AUTO) 0.3 % (0-1); BLOOD UREA NITROGEN 21 MG/DL (7-18); BUN/CREATININE RATIO 30.4 (6.6-38.0); CALCIUM 9.4 MG/DL (8.5-10.1); CHLORIDE 102 MMOL/L (99-107); CREATININE 0.69 MG/DL (0.40-0.90); EOSINOPHILS # (AUTO) 0.1 X10'3 (0-0.9); EOSINOPHILS % (AUTO) 0.7 % (0-6); GLUCOSE 141 MG/DL (70-104); HEMATOCRIT 31.9 % (35.0-45.0); HEMOGLOBIN 10.2 g/dl (12.0-16.0); LYMPHOCYTES # (AUTO) 1.5 X10'3 (1.1-4.8); LYMPHOCYTES % (AUTO) 9.4 % (21-51); MEAN CORPUSCULAR HEMOGLOBIN 27.2 PG (27.0-31.0); MEAN CORPUSCULAR VOLUME 85.2 FL (78-98); MEAN PLATELET VOLUME 9.7 FL (7.4-10.4); MONOCYTES # (AUTO) 1.7 X10'3 (0-0.9); NEUTROPHILS # (AUTO) 12.5 X10'3 (1.8-7.7); NEUTROPHILS % (AUTO) 78.6 % (42-75); PLATELET COUNT 334 X10'3 (140-440); POTASSIUM 4.6 MMOL/L (3.5-5.1); RED BLOOD COUNT 3.74 X10'6 (4.20-5.60); RED CELL DISTRIBUTION WIDTH 14.2 % (11.5-14.5); SODIUM 137 MMOL/L (135-145); TOTAL CARBON DIOXIDE 28.1 MMOL/L (24-32); WHITE BLOOD COUNT 15.9 X10'3 (4.5-11.0); eGFR 87 ML/MIN
[2021-05-09] MEDS: fluticasone nasal spray 16GM bottle NS SCH (08:00)
[2021-05-09] MEDS: normal saline 1000ml 1,000 ML IV SCH (09:20)
[2021-05-09] MEDS: cholecalciferol (vitamin D3) 1,000 unit (25mcg) tablet PO SCH (09:28)
[2021-05-09] MEDS: enoxaparin 30mg/0.3ml syringe SQ SCH ×2 (09:29→19:21)
[2021-05-09] MEDS: cyclobenzaprine 10mg tablet PO SCH ×3 (09:29→21:40)
[2021-05-09] MEDS: busPIRone 15mg tablet PO SCH ×3 (09:29→21:39)
[2021-05-09] MEDS: fenofibrate 48mg tablet PO SCH (09:30)
[2021-05-09] MEDS: atenolol 25mg tablet PO SCH (09:30)
[2021-05-09] MEDS: cyanocobalamin 500mcg tablet PO SCH (09:30)
[2021-05-09] MEDS: docusate sod 100mg capsule PO SCH ×2 (09:30→19:20)
[2021-05-09] MEDS: ALPRAZolam 0.25mg tablet PO PRN ×3 (09:31→19:19)
[2021-05-09] MEDS: levoTHYROXINE 100mcg tablet PO SCH (09:31)
[2021-05-09] MEDS: ascorbic acid 500mg tablet PO SCH (09:31)
[2021-05-09] MEDS: atorvastatin 20mg tablet PO SCH (09:31)
[2021-05-09] MEDS: multivitamins, therapeutics tablet PO SCH (09:31)
[2021-05-09] MEDS: calcium carbonate/vitamin D3 tablet PO SCH ×2 (09:31→19:19)
[2021-05-09] MEDS: benzonatate 100mg capsule PO SCH ×3 (09:32→21:39)
[2021-05-09] MEDS: pantoprazole 40mg Tablet.DR PO SCH (09:32)
[2021-05-09] MEDS: cefepime 2g/NS 100ml ADVANTAGE 100 ML IV SCH ×2 (09:34→19:21)
[2021-05-09 11:00] VITALS: BP 100/65
[2021-05-09 15:00] VITALS: BP 100/59
[2021-05-09] MEDS: albuterol 2.5 MG/3 ML nebule NEB PRN (17:42)
--- NOTE | 2021-05-09 18:36 | NUR ---
Patient in room PCU 3019. I have received report from Nena AVENDANO and had the opportunity to ask questions and assume patient care.
[2021-05-09 19:00] VITALS: BP 128/69
[2021-05-09] MEDS: lactobacillus rhamnosus 10,000 MMU CELLS/CAPSULE PO SCH (19:19)
[2021-05-09] MEDS: traZODone 50mg tablet PO SCH (21:39)
[2021-05-09] MEDS: sertraline 50mg tablet PO SCH (21:39)
[2021-05-09] MEDS: cetirizine 10mg tablet PO SCH (21:39)
[2021-05-09] MEDS: montelukast 10mg tablet PO SCH (21:39)
[2021-05-09 22:20] VITALS: BP 145/70
[2021-05-10] VITALS (14 sets, daily range): BP systolic 106–217; BP diastolic 59–122
[2021-05-10] MEDS: gabapentin 300mg capsule PO SCH ×4 (00:01→23:28)
[2021-05-10] MEDS: ALPRAZolam 0.25mg tablet PO PRN ×4 (00:01→18:53)
[2021-05-10] MEDS: morphine 2 MG/ML inj. syringe IV PRN ×6 (00:02→21:44)
[2021-05-10] MEDS ORDERED: guaiFENesin/codeine phos 10ml UD oral syrup PO PRN (04:40)
[2021-05-10] MEDS: atenolol 25mg tablet PO SCH (05:45)
--- NOTE | 2021-05-10 05:54 | NUR ---
patient had an elevated BP of 195/98 at 0410 after claiming to be short of breath. at reassessment, BP was 217/107. Notified the MD, who said to pass the patient's 0800 atenolol early. Complied with MD's orders and passed atenolol at 0540
--- NOTE | 2021-05-10 06:29 | NUR ---
Problems reprioritized. Patient report given, questions answered & plan of care reviewed with Nena AVENDANO.
--- NOTE | 2021-05-10 06:34 | NUR ---
Patient in room PCU 3019. I have received report from ROMANA Hoang and had the opportunity to ask questions and assume patient care.
[2021-05-10 06:46] LABS: BASOPHILS # (AUTO) 0.1 X10'3 (0-0.2); BASOPHILS % (AUTO) 0.6 % (0-1); EOSINOPHILS # (AUTO) 0.3 X10'3 (0-0.9); EOSINOPHILS % (AUTO) 2.8 % (0-6); HEMATOCRIT 30.2 % (35.0-45.0); HEMOGLOBIN 9.9 g/dl (12.0-16.0); LYMPHOCYTES # (AUTO) 1.1 X10'3 (1.1-4.8); LYMPHOCYTES % (AUTO) 9.4 % (21-51); MEAN CORPUSCULAR HEMOGLOBIN 27.3 PG (27.0-31.0); MEAN CORPUSCULAR HGB CONC 32.7 g/dL (33.0-36.5); MEAN CORPUSCULAR VOLUME 83.5 FL (78-98); MEAN PLATELET VOLUME 9.5 FL (7.4-10.4); MONOCYTES # (AUTO) 1.3 X10'3 (0-0.9); MONOCYTES % (AUTO) 10.7 % (2-12); NEUTROPHILS # (AUTO) 8.9 X10'3 (1.8-7.7); NEUTROPHILS % (AUTO) 76.5 % (42-75); PLATELET COUNT 327 X10'3 (140-440); RED BLOOD COUNT 3.62 X10'6 (4.20-5.60); RED CELL DISTRIBUTION WIDTH 14.4 % (11.5-14.5); WHITE BLOOD COUNT 11.7 X10'3 (4.5-11.0)
[2021-05-10 07:16] LABS: ALBUMIN 2.6 G/DL (3.4-5.0); ANION GAP 9 (8-16); BLOOD UREA NITROGEN 18 MG/DL (7-18); CALCIUM 9.3 MG/DL (8.5-10.1); CHLORIDE 100 MMOL/L (99-107); CREATININE 0.58 MG/DL (0.40-0.90); GLUCOSE 143 MG/DL (70-104); POTASSIUM 4.3 MMOL/L (3.5-5.1); SODIUM 137 MMOL/L (135-145); TOTAL CARBON DIOXIDE 28.3 MMOL/L (24-32); eGFR > 90 ML/MIN
[2021-05-10] MEDS: fenofibrate 48mg tablet PO SCH (08:00)
[2021-05-10] MEDS: enoxaparin 30mg/0.3ml syringe SQ SCH ×2 (08:00→21:45)
[2021-05-10] MEDS: fluticasone nasal spray 16GM bottle NS SCH (08:00)
[2021-05-10] MEDS: busPIRone 15mg tablet PO SCH ×3 (09:30→21:46)
[2021-05-10] MEDS: lactobacillus rhamnosus 10,000 MMU CELLS/CAPSULE PO SCH ×2 (09:31→21:45)
[2021-05-10] MEDS: multivitamins, therapeutics tablet PO SCH (09:31)
[2021-05-10] MEDS: pantoprazole 40mg Tablet.DR PO SCH (09:31)
[2021-05-10] MEDS: cyclobenzaprine 10mg tablet PO SCH ×3 (09:39→21:46)
[2021-05-10] MEDS: calcium carbonate/vitamin D3 tablet PO SCH ×2 (09:40→21:45)
[2021-05-10] MEDS: cholecalciferol (vitamin D3) 1,000 unit (25mcg) tablet PO SCH (09:40)
[2021-05-10] MEDS: levoTHYROXINE 100mcg tablet PO SCH (09:40)
[2021-05-10] MEDS: ascorbic acid 500mg tablet PO SCH (09:40)
[2021-05-10] MEDS: benzonatate 100mg capsule PO SCH ×3 (09:40→21:46)
[2021-05-10] MEDS: docusate sod 100mg capsule PO SCH ×2 (09:40→21:45)
[2021-05-10] MEDS: cyanocobalamin 500mcg tablet PO SCH (09:40)
[2021-05-10] MEDS: atorvastatin 20mg tablet PO SCH (09:41)
--- NOTE | 2021-05-10 09:51 | NUR ---
Paged Dr. Giron PAGER ID: [phone] MESSAGE: [phone] Marilu Torrez, what dose of Ativan for anxiety? patient only has Xanax PO. Mallory AVENDANO [phone]
[2021-05-10] MEDS: LORazepam 2 mg/ml vial IV PRN ×3 (10:04→21:43)
--- NOTE | 2021-05-10 10:50 | NUR ---
Paged Dr. Giron PAGER ID: [phone] MESSAGE: [phone] Marilu Torrez family is pretty adamantly requesting to speak to doctor. Mallory AVENDANO [phone]
[2021-05-10] MEDS: cefepime 2g/NS 100ml ADVANTAGE 100 ML IV SCH ×2 (12:35→21:39)
[2021-05-10] MEDS ORDERED: fentaNYL/PF 50MCG/1 ML 2ML syringe ONE (14:12)
[2021-05-10] MEDS ORDERED: midazolam 1 mg/ML 2ml injection ONE (14:30)
--- NOTE | 2021-05-10 15:31 | NUR ---
Paged Dr. Giron PAGER ID: [phone] MESSAGE: [phone] Marilu Torrez; son wants her transferred to [facility]; please advise. Mallory AVENDANO [phone]
--- NOTE | 2021-05-10 18:30 | NUR ---
Patient in room PCU 3019. I have received report from Nena AVENDANO and had the opportunity to ask questions and assume patient care.
--- NOTE | 2021-05-10 18:37 | NUR ---
Problems reprioritized. Patient report given, questions answered & plan of care reviewed with ROMANA Baptiste.
[2021-05-10] MEDS: guaiFENesin/codeine phos 10ml UD oral syrup PO PRN (18:53)
[2021-05-10] MEDS: montelukast 10mg tablet PO SCH (21:45)
[2021-05-10] MEDS: cetirizine 10mg tablet PO SCH (21:45)
[2021-05-10] MEDS: sertraline 50mg tablet PO SCH (21:46)
[2021-05-10] MEDS: traZODone 50mg tablet PO SCH (21:46)
[2021-05-11 02:00] VITALS: BP 118/75
[2021-05-11] MEDS: LORazepam 2 mg/ml vial IV PRN ×2 (05:33→10:15)
[2021-05-11 06:00] VITALS: BP 137/84
--- NOTE | 2021-05-11 06:13 | NUR ---
Patient in room PCU 3019. I have received report from ROMANA WILSON, and had the opportunity to ask questions and assume patient care.
[2021-05-11 06:41] LABS: BASOPHILS # (AUTO) 0.1 X10'3 (0-0.2); BASOPHILS % (AUTO) 0.9 % (0-1); EOSINOPHILS # (AUTO) 0.3 X10'3 (0-0.9); EOSINOPHILS % (AUTO) 4.2 % (0-6); HEMATOCRIT 31.1 % (35.0-45.0); HEMOGLOBIN 9.9 g/dl (12.0-16.0); LYMPHOCYTES # (AUTO) 1.3 X10'3 (1.1-4.8); LYMPHOCYTES % (AUTO) 16.7 % (21-51); MEAN CORPUSCULAR HEMOGLOBIN 27.1 PG (27.0-31.0); MEAN CORPUSCULAR VOLUME 84.9 FL (78-98); MEAN PLATELET VOLUME 9.4 FL (7.4-10.4); MONOCYTES % (AUTO) 12.8 % (2-12); NEUTROPHILS # (AUTO) 5.2 X10'3 (1.8-7.7); NEUTROPHILS % (AUTO) 65.4 % (42-75); PLATELET COUNT 311 X10'3 (140-440); RED BLOOD COUNT 3.67 X10'6 (4.20-5.60); RED CELL DISTRIBUTION WIDTH 14.5 % (11.5-14.5); WHITE BLOOD COUNT 7.9 X10'3 (4.5-11.0)
--- NOTE | 2021-05-11 06:50 | NUR ---
Problems reprioritized. Patient report given, questions answered & plan of care reviewed with Padmini AVENDANO.
[2021-05-11 06:59] LABS: ALBUMIN 2.3 G/DL (3.4-5.0); ANION GAP 8 (8-16); BLOOD UREA NITROGEN 16 MG/DL (7-18); BUN/CREATININE RATIO 29.6 (6.6-38.0); CALCIUM 9.1 MG/DL (8.5-10.1); CHLORIDE 103 MMOL/L (99-107); CREATININE 0.54 MG/DL (0.40-0.90); GLUCOSE 108 MG/DL (70-104); POTASSIUM 3.7 MMOL/L (3.5-5.1); SODIUM 141 MMOL/L (135-145); TOTAL CARBON DIOXIDE 30.3 MMOL/L (24-32); eGFR > 90 ML/MIN
[2021-05-11] MEDS: cefepime 2g/NS 100ml ADVANTAGE 100 ML IV SCH ×2 (08:04→19:20)
[2021-05-11] MEDS: ascorbic acid 500mg tablet PO SCH (08:07)
[2021-05-11] MEDS: fluticasone nasal spray 16GM bottle NS SCH (08:07)
[2021-05-11] MEDS: busPIRone 15mg tablet PO SCH ×3 (08:09→20:08)
[2021-05-11] MEDS: enoxaparin 30mg/0.3ml syringe SQ SCH ×2 (08:09→19:20)
[2021-05-11] MEDS: cyanocobalamin 500mcg tablet PO SCH (08:09)
[2021-05-11] MEDS: calcium carbonate/vitamin D3 tablet PO SCH ×2 (08:10→19:19)
[2021-05-11] MEDS: atenolol 25mg tablet PO SCH (08:10)
[2021-05-11] MEDS: atorvastatin 20mg tablet PO SCH (08:10)
[2021-05-11] MEDS: levoTHYROXINE 100mcg tablet PO SCH (08:11)
[2021-05-11] MEDS: gabapentin 300mg capsule PO SCH ×3 (08:11→23:50)
[2021-05-11] MEDS: cholecalciferol (vitamin D3) 1,000 unit (25mcg) tablet PO SCH (08:11)
[2021-05-11] MEDS: cyclobenzaprine 10mg tablet PO SCH ×3 (08:11→20:09)
[2021-05-11] MEDS: docusate sod 100mg capsule PO SCH ×2 (08:12→19:19)
[2021-05-11] MEDS: lactobacillus rhamnosus 10,000 MMU CELLS/CAPSULE PO SCH ×2 (08:12→19:19)
[2021-05-11] MEDS: benzonatate 100mg capsule PO SCH ×3 (08:12→20:08)
[2021-05-11] MEDS: pantoprazole 40mg Tablet.DR PO SCH (08:12)
[2021-05-11] MEDS: multivitamins, therapeutics tablet PO SCH (08:12)
[2021-05-11] MEDS: fenofibrate 48mg tablet PO SCH (08:14)
[2021-05-11] MEDS: HYDROcodone/acetaminophen 10/325mg tab PO PRN ×3 (09:18→20:19)
[2021-05-11] MEDS: guaiFENesin/codeine phos 10ml UD oral syrup PO PRN (10:15)
[2021-05-11 11:00] VITALS: BP 114/62
--- NOTE | 2021-05-11 14:19 | NUR ---
Initial: Pt admit DX sepsis, PNA, acute respiratory failure w/ hypoxia, and bilateral pleural effusions s/p L thoracentesis and L CT placement this admit per EMR. Hx R lung CA s/p resection February of this year per EMR. Thoracentesis 05/08 -900ml and 05/10 -260ml in addition to 700ml L CT output past 24 hours per EMR. Pt PO ~50% avg heart healthy diet w/ 75% breakfast this AM partially meeting needs. RD recommends Ensure High Protein TIDWM for additional protein/kcals; MD notified. Noted LBM 05/06 w/ nausea yesterday morning but no GI symptoms noted; RD d/w RN who reports pt LBM 05/11 however no documentation this admit. Pt receiving routine colace; if truly constipated would benefit from additional bowel care since on opioid antagonists. Will continue to monitor for additional nutrition intervention needs. Rec: 1. continue heart healthy diet; consider liberalization to regular diet if PO remains borderline to optimize kcal intake; encourage PO 2. Ensure high protein TIDWM; pending MD verification in EMR 3. routine bowel care 4. weekly wts Addendum: 05/11/21 at [address] Amended: Links added.
[2021-05-11 15:00] VITALS: BP 115/77
[2021-05-11] MEDS: normal saline 1000ml 1,000 ML IV SCH (15:54)
[2021-05-11 18:00] VITALS: BP 107/50
--- NOTE | 2021-05-11 18:19 | NUR ---
Problems reprioritized. Patient report given, questions answered & plan of care reviewed with ROMANA FRANK.
[2021-05-11] MEDS: cetirizine 10mg tablet PO SCH (20:09)
[2021-05-11] MEDS: sertraline 50mg tablet PO SCH (20:09)
[2021-05-11] MEDS: traZODone 50mg tablet PO SCH (20:09)
[2021-05-11] MEDS: montelukast 10mg tablet PO SCH (20:09)
[2021-05-11 22:00] VITALS: BP 116/75
[2021-05-12 02:00] VITALS: BP 133/68
[2021-05-12] MEDS: morphine 2 MG/ML inj. syringe IV PRN (03:54)
--- NOTE | 2021-05-12 06:13 | NUR ---
Problems reprioritized. Patient report given, questions answered & plan of care reviewed with ROMANA Orozco.
--- NOTE | 2021-05-12 06:17 | NUR ---
Patient in room PCU 3019. I have received bedside report from Sherrill AVENDANO and had the opportunity to ask questions and assume patient care. Pt sitting up in bed, rocking back and forth slightly. brow furrowed. pt reporting anxiety. therapeutic conversation employed and moderately effective. safety measures in place. will return with medication intervention. no s/sx acute distress. Chest tube patent to wall suction. no air leak noted.
[2021-05-12] MEDS: levoTHYROXINE 100mcg tablet PO SCH (06:40)
[2021-05-12] MEDS: busPIRone 15mg tablet PO SCH ×3 (06:40→20:32)
[2021-05-12] MEDS: benzonatate 100mg capsule PO SCH ×3 (06:41→20:32)
[2021-05-12] MEDS: LORazepam 2 mg/ml vial IV PRN ×3 (06:41→20:30)
[2021-05-12] MEDS: ondansetron/PF 4mg/2ml inj IV PRN (06:44)
[2021-05-12] MEDS: HYDROcodone/acetaminophen 10/325mg tab PO PRN ×3 (06:44→16:52)
[2021-05-12 06:47] LABS: BASOPHILS # (AUTO) 0.1 X10'3 (0-0.2); BASOPHILS % (AUTO) 1.2 % (0-1); EOSINOPHILS # (AUTO) 0.3 X10'3 (0-0.9); EOSINOPHILS % (AUTO) 4.6 % (0-6); HEMATOCRIT 29.2 % (35.0-45.0); HEMOGLOBIN 9.6 g/dl (12.0-16.0); LYMPHOCYTES # (AUTO) 1.4 X10'3 (1.1-4.8); LYMPHOCYTES % (AUTO) 20.9 % (21-51); MEAN CORPUSCULAR HEMOGLOBIN 27.5 PG (27.0-31.0); MEAN CORPUSCULAR VOLUME 83.4 FL (78-98); MEAN PLATELET VOLUME 9.3 FL (7.4-10.4); MONOCYTES # (AUTO) 0.7 X10'3 (0-0.9); MONOCYTES % (AUTO) 9.9 % (2-12); NEUTROPHILS # (AUTO) 4.3 X10'3 (1.8-7.7); NEUTROPHILS % (AUTO) 63.4 % (42-75); PLATELET COUNT 320 X10'3 (140-440); WHITE BLOOD COUNT 6.8 X10'3 (4.5-11.0)
[2021-05-12 07:00] VITALS: BP 169/94
[2021-05-12 07:03] LABS: ALBUMIN 2.4 G/DL (3.4-5.0); ANION GAP 8 (8-16); BLOOD UREA NITROGEN 16 MG/DL (7-18); BUN/CREATININE RATIO 29.1 (6.6-38.0); CALCIUM 9.2 MG/DL (8.5-10.1); CHLORIDE 103 MMOL/L (99-107); CREATININE 0.55 MG/DL (0.40-0.90); GLUCOSE 108 MG/DL (70-104); POTASSIUM 3.9 MMOL/L (3.5-5.1); SODIUM 141 MMOL/L (135-145); TOTAL CARBON DIOXIDE 29.7 MMOL/L (24-32); eGFR > 90 ML/MIN
[2021-05-12] MEDS ORDERED: tPA-cathflo 2 MG/2 ml IV flush ONE (07:58)
[2021-05-12] MEDS: lactose-reduced food (Ensure High Protein) 237ml bottle PO SCH ×3 (08:00→18:37)
[2021-05-12] MEDS: cyclobenzaprine 10mg tablet PO SCH ×3 (08:15→20:32)
[2021-05-12] MEDS: gabapentin 300mg capsule PO SCH ×2 (08:15→16:51)
[2021-05-12] MEDS: pantoprazole 40mg Tablet.DR PO SCH (08:15)
[2021-05-12] MEDS: ascorbic acid 500mg tablet PO SCH (08:15)
[2021-05-12] MEDS: cyanocobalamin 500mcg tablet PO SCH (08:15)
[2021-05-12] MEDS: lactobacillus rhamnosus 10,000 MMU CELLS/CAPSULE PO SCH ×2 (08:16→20:30)
[2021-05-12] MEDS: calcium carbonate/vitamin D3 tablet PO SCH ×2 (08:16→20:32)
[2021-05-12] MEDS: docusate sod 100mg capsule PO SCH ×2 (08:16→20:32)
[2021-05-12] MEDS: multivitamins, therapeutics tablet PO SCH (08:16)
[2021-05-12] MEDS: atenolol 25mg tablet PO SCH (08:16)
[2021-05-12] MEDS: atorvastatin 20mg tablet PO SCH (08:16)
[2021-05-12] MEDS: enoxaparin 30mg/0.3ml syringe SQ SCH ×2 (08:17→20:29)
[2021-05-12] MEDS: cefepime 2g/NS 100ml ADVANTAGE 100 ML IV SCH ×2 (08:17→20:36)
[2021-05-12] MEDS: fluticasone nasal spray 16GM bottle NS SCH (08:18)
[2021-05-12] MEDS: cholecalciferol (vitamin D3) 1,000 unit (25mcg) tablet PO SCH (08:19)
--- NOTE | 2021-05-12 08:32 | NUR ---
tricor will not scan. pharmacy paged. "Good morning. the Tricor for this pt will not scan. all other meds scanned. It says "unknon NDC number" Tricor 48mg. please advise. Thanks, -Pam"
[2021-05-12 11:00] VITALS: BP 110/62
[2021-05-12] MEDS: ALPRAZolam 0.25mg tablet PO PRN (11:20)
[2021-05-12] MEDS: fenofibrate 48mg tablet PO SCH (11:21)
--- NOTE | 2021-05-12 11:39 | NUR ---
pt in pain from IV. 22G in left hand positional but patent. pain present with flushing, but no s/sx infiltration. PICC nurse paged d/t pt requesting upper arm IV (Pt wanting expert to place IV due to multiple attempts and unsuccessful IV placement this admission.) "RE: anai Torrez: [phone]. Pt with very positional iv in hand. 3 IV attempts through the night. pt really sensitive to needles. can you help me get something secure in her upper arm? Thanks, Pam AVENDANO"
--- NOTE | 2021-05-12 14:46 | NUR ---
Paged Dr. Giron "PAGER ID: [phone] MESSAGE: RE: Marilu Torrez: [phone]. pt very anxious and restless, dyspnic despite 98% RA. Chest tube patent. current prn anxiety meds already given. please advise. -Pam #[phone]" Dr. Giron immediately call back. new order for ativan 0.5mg IV x1 now, increase prn dose of ativan to 1mg, and CXR stat.
[2021-05-12] MEDS ORDERED: LORazepam 2 mg/ml vial IM ONE (14:50)
--- NOTE | 2021-05-12 14:54 | NUR ---
radiology paged. for cxr
[2021-05-12 15:00] VITALS: BP 118/47
[2021-05-12 18:00] VITALS: BP 120/73
--- NOTE | 2021-05-12 18:06 | NUR ---
Problems reprioritized. Patient report given, questions answered & plan of care reviewed with Gertrude Mccartney RN. Pt sleeping, breathing even, head back, feet up in recliner chair. no s/sx acute distress
[2021-05-12] MEDS: traZODone 50mg tablet PO SCH (20:30)
[2021-05-12] MEDS: sertraline 50mg tablet PO SCH (20:30)
[2021-05-12] MEDS: montelukast 10mg tablet PO SCH (20:30)
[2021-05-12] MEDS: cetirizine 10mg tablet PO SCH (20:32)
[2021-05-12] MEDS: HYDROcodone/acetaminophen 5mg/325mg tablet PO PRN (20:32)
[2021-05-12 22:00] VITALS: BP 122/98
[2021-05-13] MEDS: gabapentin 300mg capsule PO SCH ×4 (00:12→23:20)
[2021-05-13] MEDS: HYDROcodone/acetaminophen 5mg/325mg tablet PO PRN ×3 (00:50→23:20)
[2021-05-13] MEDS: LORazepam 2 mg/ml vial IV PRN ×3 (00:50→17:55)
[2021-05-13 02:00] VITALS: BP 118/70
[2021-05-13 06:00] VITALS: BP 152/82
--- NOTE | 2021-05-13 06:05 | NUR ---
Problems reprioritized. Patient report given, questions answered & plan of care reviewed with ROMANA Neal.
[2021-05-13 06:18] LABS: ANION GAP 4 (8-16); BLOOD UREA NITROGEN 16 MG/DL (7-18); BUN/CREATININE RATIO 25.8 (6.6-38.0); CHLORIDE 102 MMOL/L (99-107); CREATININE 0.62 MG/DL (0.40-0.90); GLUCOSE 105 MG/DL (70-104); POTASSIUM 4.2 MMOL/L (3.5-5.1); SODIUM 139 MMOL/L (135-145); TOTAL CARBON DIOXIDE 32.8 MMOL/L (24-32); eGFR > 90 ML/MIN
[2021-05-13 06:27] LABS: BASOPHILS # (AUTO) 0.1 X10'3 (0-0.2); BASOPHILS % (AUTO) 0.8 % (0-1); EOSINOPHILS # (AUTO) 0.2 X10'3 (0-0.9); EOSINOPHILS % (AUTO) 3.3 % (0-6); HEMATOCRIT 30.6 % (35.0-45.0); HEMOGLOBIN 9.9 g/dl (12.0-16.0); LYMPHOCYTES # (AUTO) 1.6 X10'3 (1.1-4.8); LYMPHOCYTES % (AUTO) 21.7 % (21-51); MEAN CORPUSCULAR HEMOGLOBIN 27.3 PG (27.0-31.0); MEAN CORPUSCULAR HGB CONC 32.3 g/dL (33.0-36.5); MEAN CORPUSCULAR VOLUME 84.4 FL (78-98); MEAN PLATELET VOLUME 9.3 FL (7.4-10.4); MONOCYTES # (AUTO) 0.9 X10'3 (0-0.9); MONOCYTES % (AUTO) 11.6 % (2-12); NEUTROPHILS # (AUTO) 4.8 X10'3 (1.8-7.7); NEUTROPHILS % (AUTO) 62.6 % (42-75); PLATELET COUNT 345 X10'3 (140-440); RED BLOOD COUNT 3.63 X10'6 (4.20-5.60); WHITE BLOOD COUNT 7.6 X10'3 (4.5-11.0)
[2021-05-13] MEDS: cyanocobalamin 500mcg tablet PO SCH (08:06)
[2021-05-13] MEDS: multivitamins, therapeutics tablet PO SCH (08:06)
[2021-05-13] MEDS: cyclobenzaprine 10mg tablet PO SCH ×3 (08:07→22:26)
[2021-05-13] MEDS: pantoprazole 40mg Tablet.DR PO SCH (08:07)
[2021-05-13] MEDS: levoTHYROXINE 100mcg tablet PO SCH (08:07)
[2021-05-13] MEDS: benzonatate 100mg capsule PO SCH ×3 (08:07→22:27)
[2021-05-13] MEDS: docusate sod 100mg capsule PO SCH ×2 (08:07→19:20)
[2021-05-13] MEDS: calcium carbonate/vitamin D3 tablet PO SCH ×2 (08:08→19:18)
[2021-05-13] MEDS: cholecalciferol (vitamin D3) 1,000 unit (25mcg) tablet PO SCH (08:08)
[2021-05-13] MEDS: ascorbic acid 500mg tablet PO SCH (08:08)
[2021-05-13] MEDS: atorvastatin 20mg tablet PO SCH (08:08)
[2021-05-13] MEDS: lactobacillus rhamnosus 10,000 MMU CELLS/CAPSULE PO SCH ×2 (08:08→19:20)
[2021-05-13] MEDS: fenofibrate 48mg tablet PO SCH (08:08)
[2021-05-13] MEDS: cefepime 2g/NS 100ml ADVANTAGE 100 ML IV SCH ×2 (08:09→21:49)
[2021-05-13] MEDS: atenolol 25mg tablet PO SCH (08:09)
[2021-05-13] MEDS: busPIRone 15mg tablet PO SCH ×3 (08:09→22:26)
[2021-05-13] MEDS: enoxaparin 30mg/0.3ml syringe SQ SCH ×2 (08:15→19:22)
[2021-05-13] MEDS: lactose-reduced food (Ensure High Protein) 237ml bottle PO SCH ×3 (08:22→18:00)
[2021-05-13] MEDS: fluticasone nasal spray 16GM bottle NS SCH (08:22)
[2021-05-13] MEDS: HYDROcodone/acetaminophen 10/325mg tab PO PRN ×2 (09:17→13:06)
[2021-05-13] MEDS: normal saline 1000ml 1,000 ML IV SCH (09:20)
[2021-05-13 11:00] VITALS: BP 95/52
[2021-05-13 18:00] VITALS: BP 141/84
[2021-05-13 22:00] VITALS: BP 109/69
[2021-05-13] MEDS: montelukast 10mg tablet PO SCH (22:26)
[2021-05-13] MEDS: traZODone 50mg tablet PO SCH (22:26)
[2021-05-13] MEDS: sertraline 50mg tablet PO SCH (22:27)
[2021-05-13] MEDS: cetirizine 10mg tablet PO SCH (22:27)
[2021-05-14 02:00] VITALS: BP 124/68
[2021-05-14 07:00] VITALS: BP 114/66
[2021-05-14] MEDS: lactobacillus rhamnosus 10,000 MMU CELLS/CAPSULE PO SCH ×2 (08:34→20:27)
[2021-05-14] MEDS: levoTHYROXINE 100mcg tablet PO SCH (08:34)
[2021-05-14] MEDS: cyclobenzaprine 10mg tablet PO SCH ×3 (08:34→20:26)
[2021-05-14] MEDS: pantoprazole 40mg Tablet.DR PO SCH (08:34)
[2021-05-14] MEDS: calcium carbonate/vitamin D3 tablet PO SCH ×2 (08:34→20:26)
[2021-05-14] MEDS: gabapentin 300mg capsule PO SCH ×2 (08:34→16:25)
[2021-05-14] MEDS: busPIRone 15mg tablet PO SCH ×3 (08:34→20:26)
[2021-05-14] MEDS: atorvastatin 20mg tablet PO SCH (08:34)
[2021-05-14] MEDS: docusate sod 100mg capsule PO SCH ×2 (08:34→20:26)
[2021-05-14] MEDS: cyanocobalamin 500mcg tablet PO SCH (08:35)
[2021-05-14] MEDS: atenolol 25mg tablet PO SCH (08:35)
[2021-05-14] MEDS: multivitamins, therapeutics tablet PO SCH (08:36)
[2021-05-14] MEDS: benzonatate 100mg capsule PO SCH ×3 (08:36→20:27)
[2021-05-14] MEDS: fenofibrate 48mg tablet PO SCH (08:36)
[2021-05-14] MEDS: ascorbic acid 500mg tablet PO SCH (08:36)
[2021-05-14] MEDS: HYDROcodone/acetaminophen 10/325mg tab PO PRN ×3 (08:36→18:53)
[2021-05-14] MEDS: enoxaparin 30mg/0.3ml syringe SQ SCH ×2 (08:37→20:27)
[2021-05-14] MEDS: cefepime 2g/NS 100ml ADVANTAGE 100 ML IV SCH ×2 (08:38→20:26)
[2021-05-14] MEDS: ondansetron/PF 4mg/2ml inj IV PRN (08:39)
[2021-05-14] MEDS: fluticasone nasal spray 16GM bottle NS SCH (08:39)
[2021-05-14] MEDS: ALPRAZolam 0.25mg tablet PO PRN ×3 (08:39→22:37)
[2021-05-14] MEDS: lactose-reduced food (Ensure High Protein) 237ml bottle PO SCH ×3 (08:40→18:00)
[2021-05-14] MEDS: cholecalciferol (vitamin D3) 1,000 unit (25mcg) tablet PO SCH (08:40)
[2021-05-14 11:00] VITALS: BP 110/70
--- NOTE | 2021-05-14 11:01 | NUR ---
Patient in room PCU 3019. I have received report from Emma AVENDANO and had the opportunity to ask questions and assume patient care.
[2021-05-14 15:00] VITALS: BP 109/56
[2021-05-14] MEDS ORDERED: FLUSH 6 MG ICATH ONE (15:20)
[2021-05-14] MEDS ORDERED: TPA CATHFLO ICATH ONE (15:20)
[2021-05-14] MEDS ORDERED: NORMAL SALINE ICATH ONE (15:20)
[2021-05-14 16:05] LABS: ALANINE AMINOTRANSFERASE 47 U/L (12-78); ALBUMIN 2.3 G/DL (3.4-5.0); ALBUMIN/GLOBULIN RATIO 0.5 (1.1-1.5); ALKALINE PHOSPHATASE 194 IU/L (46-116); ANION GAP 4 (8-16); ASPARTATE AMINO TRANSFERASE 32 U/L (10-37); BILIRUBIN,TOTAL 0.3 MG/DL (0.1-1.0); BLOOD UREA NITROGEN 17 MG/DL (7-18); BUN/CREATININE RATIO 25.8 (6.6-38.0); CHLORIDE 104 MMOL/L (99-107); CREATININE 0.66 MG/DL (0.40-0.90); GLUCOSE 107 MG/DL (70-104); POTASSIUM 4.4 MMOL/L (3.5-5.1); SODIUM 140 MMOL/L (135-145); TOTAL CARBON DIOXIDE 31.9 MMOL/L (24-32); TOTAL PROTEIN 6.5 G/DL (6.4-8.2); eGFR > 90 ML/MIN
[2021-05-14 16:09] LABS: BASOPHILS # (AUTO) 0.1 X10'3 (0-0.2); BASOPHILS % (AUTO) 0.9 % (0-1); EOSINOPHILS # (AUTO) 0.3 X10'3 (0-0.9); HEMATOCRIT 29.5 % (35.0-45.0); HEMOGLOBIN 9.7 g/dl (12.0-16.0); LYMPHOCYTES # (AUTO) 1.6 X10'3 (1.1-4.8); LYMPHOCYTES % (AUTO) 18.7 % (21-51); MEAN CORPUSCULAR HEMOGLOBIN 27.3 PG (27.0-31.0); MEAN CORPUSCULAR HGB CONC 32.7 g/dL (33.0-36.5); MEAN CORPUSCULAR VOLUME 83.4 FL (78-98); MEAN PLATELET VOLUME 9.4 FL (7.4-10.4); MONOCYTES # (AUTO) 0.9 X10'3 (0-0.9); MONOCYTES % (AUTO) 10.8 % (2-12); NEUTROPHILS # (AUTO) 5.7 X10'3 (1.8-7.7); NEUTROPHILS % (AUTO) 66.6 % (42-75); PLATELET COUNT 368 X10'3 (140-440); RED BLOOD COUNT 3.54 X10'6 (4.20-5.60); RED CELL DISTRIBUTION WIDTH 14.3 % (11.5-14.5); WHITE BLOOD COUNT 8.5 X10'3 (4.5-11.0)
[2021-05-14 18:00] VITALS: BP 95/76
--- NOTE | 2021-05-14 18:11 | NUR ---
Problems reprioritized. Patient report given, questions answered & plan of care reviewed with Emma AVENDANO.
[2021-05-14] MEDS: LORazepam 2 mg/ml vial IV PRN (18:53)
--- NOTE | 2021-05-14 19:13 | NUR ---
Page Sent promotional table spacer PAGER ID: [phone] MESSAGE: RE: ShanMarilu RM [phone]: Pt is here with bilateral pleural effusions and lung cancer. Her pain and anxiety are not being well controlled. Can we please increase /add to her pain meds and ativan? Thanks, Emma [phone]
--- NOTE | 2021-05-14 19:53 | NUR ---
Page Sent promotional table spacer PAGER ID: [phone] MESSAGE: RE: ShanKeyonaa RM [phone]: Pt is crying and beginning to have a panic attack. She is complaining of serve pain and anxiety. Can I please get an increase in her pain meds and ativan? (180 character message out of a maximum of 240)
[2021-05-14] MEDS: morphine 2 MG/ML inj. syringe IV PRN (20:18)
[2021-05-14] MEDS: cetirizine 10mg tablet PO SCH (20:26)
[2021-05-14] MEDS: montelukast 10mg tablet PO SCH (20:26)
[2021-05-14] MEDS: sertraline 50mg tablet PO SCH (20:26)
[2021-05-14] MEDS: traZODone 50mg tablet PO SCH (20:26)
[2021-05-14] MEDS: HYDROcodone/acetaminophen 5mg/325mg tablet PO PRN (22:38)
[2021-05-15] MEDS: morphine 2 MG/ML inj. syringe IV PRN ×3 (00:39→16:24)
[2021-05-15] MEDS: gabapentin 300mg capsule PO SCH ×4 (00:39→23:18)
[2021-05-15 02:00] VITALS: BP 98/73
[2021-05-15] MEDS: ALPRAZolam 0.25mg tablet PO PRN ×4 (04:00→19:08)
[2021-05-15] MEDS: HYDROcodone/acetaminophen 10/325mg tab PO PRN ×4 (04:01→19:10)
[2021-05-15 06:00] VITALS: BP 139/76
[2021-05-15] MEDS: cholecalciferol (vitamin D3) 1,000 unit (25mcg) tablet PO SCH (08:46)
[2021-05-15] MEDS: benzonatate 100mg capsule PO SCH ×3 (08:47→21:23)
[2021-05-15] MEDS: cyanocobalamin 500mcg tablet PO SCH (08:47)
[2021-05-15] MEDS: multivitamins, therapeutics tablet PO SCH (08:47)
[2021-05-15] MEDS: ascorbic acid 500mg tablet PO SCH (08:48)
[2021-05-15] MEDS: fenofibrate 48mg tablet PO SCH (08:48)
[2021-05-15] MEDS: calcium carbonate/vitamin D3 tablet PO SCH ×2 (08:48→19:08)
[2021-05-15] MEDS: pantoprazole 40mg Tablet.DR PO SCH (08:48)
[2021-05-15] MEDS: docusate sod 100mg capsule PO SCH ×2 (08:49→19:08)
[2021-05-15] MEDS: lactobacillus rhamnosus 10,000 MMU CELLS/CAPSULE PO SCH ×2 (08:49→19:09)
[2021-05-15] MEDS: atenolol 25mg tablet PO SCH (08:49)
[2021-05-15] MEDS: busPIRone 15mg tablet PO SCH ×3 (08:49→21:23)
[2021-05-15] MEDS: cyclobenzaprine 10mg tablet PO SCH ×3 (08:50→21:23)
[2021-05-15] MEDS: atorvastatin 20mg tablet PO SCH (08:50)
[2021-05-15] MEDS: fluticasone nasal spray 16GM bottle NS SCH (08:51)
[2021-05-15] MEDS: cefepime 2g/NS 100ml ADVANTAGE 100 ML IV SCH ×2 (08:52→19:08)
[2021-05-15] MEDS: enoxaparin 30mg/0.3ml syringe SQ SCH ×2 (08:53→19:11)
[2021-05-15] MEDS: lactose-reduced food (Ensure High Protein) 237ml bottle PO SCH ×3 (08:54→18:44)
[2021-05-15] MEDS: levoTHYROXINE 100mcg tablet PO SCH (08:54)
[2021-05-15] MEDS ORDERED: tPA-cathflo 2mg/2ml IV flush 4 MG in normal saline 100ml IV soln 50 ML ICATH ONE (09:00)
[2021-05-15] MEDS: normal saline 1000ml 1,000 ML IV SCH ×2 (09:20→19:26)
[2021-05-15 11:00] VITALS: BP 106/60
--- NOTE | 2021-05-15 14:59 | NUR ---
Stop cock on chest tube open per PA order.
[2021-05-15 15:00] VITALS: BP 106/60
[2021-05-15] MEDS ORDERED: heparin sodium, porcine/PF 100unit/ml 5ML syringe ONE (15:50)
[2021-05-15 18:00] VITALS: BP 112/63
--- NOTE | 2021-05-15 18:17 | NUR ---
Patient in room PCU 3019. I have received report from ROMANA Graham and had the opportunity to ask questions and assume patient care.
--- NOTE | 2021-05-15 18:17 | NUR ---
Problems reprioritized. Patient report given, questions answered & plan of care reviewed with Emily AVENDANO.
[2021-05-15] MEDS: traZODone 50mg tablet PO SCH (21:22)
[2021-05-15] MEDS: montelukast 10mg tablet PO SCH (21:22)
[2021-05-15] MEDS: sertraline 50mg tablet PO SCH (21:22)
[2021-05-15] MEDS: cetirizine 10mg tablet PO SCH (21:23)
[2021-05-16] MEDS: HYDROcodone/acetaminophen 10/325mg tab PO PRN ×4 (03:01→19:59)
[2021-05-16] MEDS: LORazepam 2 mg/ml vial IV PRN (03:02)
--- NOTE | 2021-05-16 06:43 | NUR ---
Student documentation: I have reviewed and agree with all interventions, assessments performed and documented by Erik Student Nurse.
--- NOTE | 2021-05-16 06:43 | NUR ---
Problems reprioritized. Patient report given, questions answered & plan of care reviewed with ROMANA Graham.
[2021-05-16 07:00] VITALS: BP 134/77
[2021-05-16] MEDS: cefepime 2g/NS 100ml ADVANTAGE 100 ML IV SCH ×2 (08:26→20:09)
[2021-05-16] MEDS: lactobacillus rhamnosus 10,000 MMU CELLS/CAPSULE PO SCH ×2 (08:26→19:59)
[2021-05-16] MEDS: gabapentin 300mg capsule PO SCH ×2 (08:26→16:25)
[2021-05-16] MEDS: cyclobenzaprine 10mg tablet PO SCH ×3 (08:26→20:08)
[2021-05-16] MEDS: levoTHYROXINE 100mcg tablet PO SCH (08:26)
[2021-05-16] MEDS: docusate sod 100mg capsule PO SCH ×2 (08:26→19:59)
[2021-05-16] MEDS: fluticasone nasal spray 16GM bottle NS SCH (08:26)
[2021-05-16] MEDS: atorvastatin 20mg tablet PO SCH (08:26)
[2021-05-16] MEDS: multivitamins, therapeutics tablet PO SCH (08:27)
[2021-05-16] MEDS: benzonatate 100mg capsule PO SCH ×3 (08:27→20:08)
[2021-05-16] MEDS: busPIRone 15mg tablet PO SCH ×3 (08:27→20:08)
[2021-05-16] MEDS: atenolol 25mg tablet PO SCH (08:27)
[2021-05-16] MEDS: ascorbic acid 500mg tablet PO SCH (08:27)
[2021-05-16] MEDS: fenofibrate 48mg tablet PO SCH (08:28)
[2021-05-16] MEDS: cyanocobalamin 500mcg tablet PO SCH (08:28)
[2021-05-16] MEDS: calcium carbonate/vitamin D3 tablet PO SCH ×2 (08:28→19:59)
[2021-05-16] MEDS: pantoprazole 40mg Tablet.DR PO SCH (08:28)
[2021-05-16] MEDS: enoxaparin 30mg/0.3ml syringe SQ SCH ×2 (08:28→20:00)
[2021-05-16] MEDS: lactose-reduced food (Ensure High Protein) 237ml bottle PO SCH ×3 (08:28→18:00)
[2021-05-16] MEDS: cholecalciferol (vitamin D3) 1,000 unit (25mcg) tablet PO SCH (08:28)
[2021-05-16] MEDS: ALPRAZolam 0.25mg tablet PO PRN ×3 (08:30→19:59)
[2021-05-16 11:00] VITALS: BP 104/65
--- NOTE | 2021-05-16 11:45 | NUR ---
Advised primary RN that per Porter REYES, port dye study cancelled.
--- NOTE | 2021-05-16 13:07 | NUR ---
Initial: Pt remains w/ chest tube and PO intake remains similar, mostly 50% of meals and additional 46% x 10 ONS meeting minimum nutrient needs at this time. If PO intake declines may consider diet liberalization to Regular. LBM 05/14 receiving routine colace. No new nutrition interventions implemented at this time, will continue to monitor. Rec: 1. continue heart healthy diet; consider liberalization to regular diet if PO declines to optimize kcal intake; encourage PO 2. Ensure high protein TIDWM 3. routine bowel care 4. weekly wts Addendum: 05/16/21 at [address] Amended: Links added.
[2021-05-16 15:00] VITALS: BP 124/71
[2021-05-16 18:00] VITALS: BP 78/39
--- NOTE | 2021-05-16 18:24 | NUR ---
Problems reprioritized. Patient report given, questions answered & plan of care reviewed with Kiarra AVENDANO and Leonela AVENDANO.
[2021-05-16] MEDS: cetirizine 10mg tablet PO SCH (20:08)
[2021-05-16] MEDS: montelukast 10mg tablet PO SCH (20:08)
[2021-05-16] MEDS: traZODone 50mg tablet PO SCH (20:08)
[2021-05-16] MEDS: sertraline 50mg tablet PO SCH (20:08)
[2021-05-16 22:00] VITALS: BP 113/68
[2021-05-17] MEDS: ALPRAZolam 0.25mg tablet PO PRN ×4 (00:05→13:36)
[2021-05-17] MEDS: HYDROcodone/acetaminophen 10/325mg tab PO PRN ×4 (00:07→17:14)
[2021-05-17] MEDS: gabapentin 300mg capsule PO SCH ×3 (00:07→17:14)
[2021-05-17 02:00] VITALS: BP 119/60
--- NOTE | 2021-05-17 04:21 | NUR ---
[place] Medication Administration: For this medication-pass time frame, all medication were reviewed, dispensed, administered and documented per hospital policy by ROMANA Gipson. [place] documentation: I have reviewed and agree with all interventions, assessments performed and documented by ROMANA Gipson.
[2021-05-17 06:00] VITALS: BP 113/69
--- NOTE | 2021-05-17 06:20 | NUR ---
Problems reprioritized. Patient report given, questions answered & plan of care reviewed with ROMANA Hale.
--- NOTE | 2021-05-17 06:27 | NUR ---
Patient in room U 3019. I have received report from ROMANA Lemus and had the opportunity to ask questions and assume patient care. Addendum: 05/17/21 at 0630 by Alexia Bucio RN Correction: report received from ROMANA Plunkett and ROMANA Gipson
[2021-05-17] MEDS: lactose-reduced food (Ensure High Protein) 237ml bottle PO SCH ×2 (08:00→13:00)
[2021-05-17] MEDS: calcium carbonate/vitamin D3 tablet PO SCH (08:03)
[2021-05-17] MEDS: benzonatate 100mg capsule PO SCH ×2 (08:04→13:30)
[2021-05-17] MEDS: cyclobenzaprine 10mg tablet PO SCH ×2 (08:05→13:30)
[2021-05-17] MEDS: atorvastatin 20mg tablet PO SCH (08:06)
[2021-05-17] MEDS: cholecalciferol (vitamin D3) 1,000 unit (25mcg) tablet PO SCH (08:07)
[2021-05-17] MEDS: ascorbic acid 500mg tablet PO SCH (08:07)
[2021-05-17] MEDS: pantoprazole 40mg Tablet.DR PO SCH (08:08)
[2021-05-17] MEDS: cyanocobalamin 500mcg tablet PO SCH (08:08)
[2021-05-17] MEDS: fenofibrate 48mg tablet PO SCH (08:08)
[2021-05-17] MEDS: lactobacillus rhamnosus 10,000 MMU CELLS/CAPSULE PO SCH (08:10)
[2021-05-17] MEDS: docusate sod 100mg capsule PO SCH (08:10)
[2021-05-17] MEDS: levoTHYROXINE 100mcg tablet PO SCH (08:11)
[2021-05-17] MEDS: atenolol 25mg tablet PO SCH (08:12)
[2021-05-17] MEDS: multivitamins, therapeutics tablet PO SCH (08:13)
[2021-05-17] MEDS: busPIRone 15mg tablet PO SCH ×2 (08:13→13:30)
[2021-05-17] MEDS: enoxaparin 30mg/0.3ml syringe SQ SCH (08:15)
[2021-05-17] MEDS: fluticasone nasal spray 16GM bottle NS SCH (08:21)
[2021-05-17] MEDS: cefepime 2g/NS 100ml ADVANTAGE 100 ML IV SCH (08:21)
[2021-05-17] MEDS: normal saline 1000ml 1,000 ML IV SCH (09:20)
--- NOTE | 2021-05-17 09:37 | NUR ---
Paged Dr Calvillo re: pain relief: PAGER ID: [phone] MESSAGE: Shan Peng scheduled to have chest tube removed today and is fearful of pain. Can she have a one time dose of MS to be given prior? Tamela [phone]
[2021-05-17] MEDS ORDERED: morphine 2 MG/ML inj. syringe IV PRN ×2 (10:00→12:00)
[2021-05-17 10:57] LABS: ALANINE AMINOTRANSFERASE 31 U/L (12-78); ALBUMIN 2.1 G/DL (3.4-5.0); ALBUMIN/GLOBULIN RATIO 0.5 (1.1-1.5); ALKALINE PHOSPHATASE 152 IU/L (46-116); ANION GAP 9 (8-16); ASPARTATE AMINO TRANSFERASE 25 U/L (10-37); BILIRUBIN,TOTAL 0.1 MG/DL (0.1-1.0); BLOOD UREA NITROGEN 17 MG/DL (7-18); BUN/CREATININE RATIO 27.4 (6.6-38.0); CALCIUM 8.8 MG/DL (8.5-10.1); CHLORIDE 104 MMOL/L (99-107); CREATININE 0.62 MG/DL (0.40-0.90); GLUCOSE 138 MG/DL (70-104); POTASSIUM 3.7 MMOL/L (3.5-5.1); SODIUM 140 MMOL/L (135-145); TOTAL CARBON DIOXIDE 26.7 MMOL/L (24-32); TOTAL PROTEIN 6.3 G/DL (6.4-8.2); eGFR > 90 ML/MIN
[2021-05-17 11:00] VITALS: BP 103/56
[2021-05-17 12:39] LABS: BASOPHILS % (AUTO) 0.6 % (0-1); EOSINOPHILS # (AUTO) 0.2 X10'3 (0-0.9); HEMATOCRIT 30.9 % (35.0-45.0); HEMOGLOBIN 10.1 g/dl (12.0-16.0); LYMPHOCYTES # (AUTO) 1.6 X10'3 (1.1-4.8); LYMPHOCYTES % (AUTO) 26.8 % (21-51); MEAN CORPUSCULAR HEMOGLOBIN 27.2 PG (27.0-31.0); MEAN CORPUSCULAR HGB CONC 32.7 g/dL (33.0-36.5); MEAN CORPUSCULAR VOLUME 82.9 FL (78-98); MEAN PLATELET VOLUME 9.1 FL (7.4-10.4); MONOCYTES # (AUTO) 0.6 X10'3 (0-0.9); MONOCYTES % (AUTO) 10.9 % (2-12); NEUTROPHILS # (AUTO) 3.3 X10'3 (1.8-7.7); NEUTROPHILS % (AUTO) 57.7 % (42-75); PLATELET COUNT 341 X10'3 (140-440); RED BLOOD COUNT 3.72 X10'6 (4.20-5.60); RED CELL DISTRIBUTION WIDTH 14.5 % (11.5-14.5); WHITE BLOOD COUNT 5.8 X10'3 (4.5-11.0)
--- NOTE | 2021-05-17 15:25 | NUR ---
O2 Sat at rest on room air: 89% If below 89%: Recovery O2 Sat at rest on ___LPM:___%:___% via (mask/nasal cannula, etc..) No further documentation is necessary. If O2 Sat did not drop below 89% on room air,ambulate patient on room air. O2 Sat while ambulating on room air: 87% Recovery O2 Sat while ambulating on 4LPM: 94 % No further documentation is necessary. If patient does not drop below 89% while ambulating, he/she does not qualify for home O2.
--- NOTE | 2021-05-17 17:45 | NUR ---
Patient stable for discharge per MD orders. ePIV discontinued intact. Telemetry monitoring equipment removed and returned to telemetry office. Patient placed on mobile O2 for trip home. All discharge instructions reviewed with patient who was given the opportunity to ask questions. All questions answered. Patient expressed good understanding of discharge instructions. All belongings gathered and sent with patient. 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
== END 2021-05-17 17:46 | disposition home health service (06) | DRG 871 ==
LOC: ER 05:25 → ED HOLD 09:20 → PCU 3S 05-08 19:23
PROVIDERS: ADMIT Family Medicine; ATTEND Family Medicine
PROC: B32T1ZZ Computerized Tomography (CT Scan) of Left Pulmonary Artery using Low Osmolar Contrast (ICD-10-PCS; 2021-05-07)
PROC: B3201ZZ Computerized Tomography (CT Scan) of Thoracic Aorta using Low Osmolar Contrast (ICD-10-PCS; 2021-05-07)
PROC: B32S1ZZ Computerized Tomography (CT Scan) of Right Pulmonary Artery using Low Osmolar Contrast (ICD-10-PCS; 2021-05-07)
PROC: 0W9B30Z Drainage of Left Pleural Cavity with Drainage Device, Percutaneous Approach (ICD-10-PCS; principal; 2021-05-08)
PROC: 0W9B30Z Drainage of Left Pleural Cavity with Drainage Device, Percutaneous Approach (ICD-10-PCS; 2021-05-10)
PROC: 3E0L3GC Introduction of Other Therapeutic Substance into Pleural Cavity, Percutaneous Approach (ICD-10-PCS; 2021-05-12)
PROC: 3E0L3GC Introduction of Other Therapeutic Substance into Pleural Cavity, Percutaneous Approach (ICD-10-PCS; 2021-05-14)
DX: A41.9 Sepsis, unspecified organism (principal); J96.01 Acute respiratory failure with hypoxia; J18.9 Pneumonia, unspecified organism; C34.90 Malignant neoplasm of unspecified part of unspecified bronchus or lung; J91.0 Malignant pleural effusion; J44.0 Chronic obstructive pulmonary disease with (acute) lower respiratory infection; Z20.822 Contact with and (suspected) exposure to COVID-19; E03.9 Hypothyroidism, unspecified; F41.9 Anxiety disorder, unspecified; G89.29 Other chronic pain; M54.9 Dorsalgia, unspecified; E78.5 Hyperlipidemia, unspecified; I10 Essential (primary) hypertension; Z90.710 Acquired absence of both cervix and uterus; Z90.49 Acquired absence of other specified parts of digestive tract; Z82.49 Family history of ischemic heart disease and other diseases of the circulatory system; Z80.1 Family history of malignant neoplasm of trachea, bronchus and lung; Z87.891 Personal history of nicotine dependence; Z88.0 Allergy status to penicillin; Z79.899 Other long term (current) drug therapy; Z88.2 Allergy status to sulfonamides
CPT/HCPCS: 32555; 32557; 36415; 71045; 71250; 71275; 80048; 80053; 82945; 83615; 83880; 84484; 85025; 87070; 87081; 87635; 89051; 94640; 94760; 96374; 97110; 97116; 97161; 97530; 97535; 99152; 99153; 99285; C9803; G0378; J0692; J1642; J1650; J2060; J2250; J2270; J2405; J2997; J3010; J7030; Q9967

== ENCOUNTER 2021-05-22 09:23 | Outpatient (CLI) | payer BC ==
[~2021-05-22 09:23] MED LIST changes: -ACET-1025 PO; -ALPR0.5T8 PO; +CYCL-1 PO
[2021-05-22 10:10] LABS: BASOPHILS # (AUTO) 0.1 X10'3 (0-0.2); BASOPHILS % (AUTO) 1.3 % (0-1); EOSINOPHILS # (AUTO) 0.3 X10'3 (0-0.9); HEMATOCRIT 33.6 % (35.0-45.0); HEMOGLOBIN 11.1 g/dl (12.0-16.0); LYMPHOCYTES # (AUTO) 2.1 X10'3 (1.1-4.8); LYMPHOCYTES % (AUTO) 28.4 % (21-51); MEAN CORPUSCULAR HEMOGLOBIN 27.1 PG (27.0-31.0); MEAN CORPUSCULAR HGB CONC 33.1 g/dL (33.0-36.5); MEAN CORPUSCULAR VOLUME 81.8 FL (78-98); MONOCYTES # (AUTO) 0.8 X10'3 (0-0.9); MONOCYTES % (AUTO) 10.2 % (2-12); NEUTROPHILS # (AUTO) 4.2 X10'3 (1.8-7.7); NEUTROPHILS % (AUTO) 56.1 % (42-75); PLATELET COUNT 438 X10'3 (140-440); RED BLOOD COUNT 4.11 X10'6 (4.20-5.60); WHITE BLOOD COUNT 7.6 X10'3 (4.5-11.0)
[2021-05-22 10:26] LABS: ALANINE AMINOTRANSFERASE 29 U/L (12-78); ALBUMIN 3.2 G/DL (3.4-5.0); ALBUMIN/GLOBULIN RATIO 0.7 (1.1-1.5); ALKALINE PHOSPHATASE 156 IU/L (46-116); ANION GAP 8 (8-16); ASPARTATE AMINO TRANSFERASE 25 U/L (10-37); BILIRUBIN,TOTAL 0.3 MG/DL (0.1-1.0); BLOOD UREA NITROGEN 13 MG/DL (7-18); BUN/CREATININE RATIO 21.7 (6.6-38.0); CALCIUM 9.3 MG/DL (8.5-10.1); CHLORIDE 104 MMOL/L (99-107); GLUCOSE 90 MG/DL (70-104); POTASSIUM 4.2 MMOL/L (3.5-5.1); SODIUM 140 MMOL/L (135-145); TOTAL CARBON DIOXIDE 28.4 MMOL/L (24-32); TOTAL PROTEIN 7.5 G/DL (6.4-8.2); eGFR > 90 ML/MIN
== END 2021-05-22 23:59 | disposition home or self-care (01) ==
LOC: LAB 09:23
PROVIDERS: ATTEND Internal Medicine Hematology & Oncology
DX: C34.31 Malignant neoplasm of lower lobe, right bronchus or lung (principal)
CPT/HCPCS: 36415; 80053; 82378; 85025

== ENCOUNTER 2021-06-22 06:25 | Day surgery (SDC) | payer MEDICAID ==
[~2021-06-22] VITALS: Ht 170.2 cm; Wt 100.0 kg
[~2021-06-22 06:25] MED LIST changes: +MONT-40 PO; -MONT10TA32 PO
[2021-06-22] MEDS ORDERED: normal saline 1000ml 1,000 ML IV SCH (06:40)
[2021-06-22] MEDS ORDERED: LIDOcaine 1% (10mg/ml) 2ml vial ONE (06:52)
[2021-06-22] MEDS ORDERED: ONDA-104 PO (07:50)
[2021-06-22] MEDS ORDERED: ALPR-164 PO (07:50)
[2021-06-22] MEDS ORDERED: PROC-8 PO (07:50)
[2021-06-22] MEDS ORDERED: OLAN5TAB5 PO (07:50)
[2021-06-22 08:24] VITALS: BP 138/92
[2021-06-22] MEDS ORDERED: fentaNYL/PF 50MCG/1 ML 2ML syringe ONE (08:46)
[2021-06-22] MEDS ORDERED: midazolam 1 mg/ML 2ml injection ONE (08:46)
[2021-06-22 09:35] VITALS: BP 105/61
== END 2021-06-22 09:15 | disposition home or self-care (01) ==
LOC: SSTAY O 06:25
PROVIDERS: ATTEND Preventive Medicine Aerospace Medicine
DX: R59.0 Localized enlarged lymph nodes (principal); Z53.8 Procedure and treatment not carried out for other reasons; I10 Essential (primary) hypertension; E78.5 Hyperlipidemia, unspecified; J44.9 Chronic obstructive pulmonary disease, unspecified; E03.9 Hypothyroidism, unspecified; Z85.118 Personal history of other malignant neoplasm of bronchus and lung; Z90.2 Acquired absence of lung [part of]; Z90.49 Acquired absence of other specified parts of digestive tract; Z90.710 Acquired absence of both cervix and uterus; Z87.891 Personal history of nicotine dependence; Z88.0 Allergy status to penicillin; Z88.2 Allergy status to sulfonamides; Z88.8 Allergy status to other drugs, medicaments and biological substances; Z79.899 Other long term (current) drug therapy; Z82.49 Family history of ischemic heart disease and other diseases of the circulatory system; Z80.1 Family history of malignant neoplasm of trachea, bronchus and lung
CPT/HCPCS: 71250; 76604; J2001; J2250; J3010

== ENCOUNTER 2022-02-22 09:45 | Outpatient (CLI) | payer MEDICAID ==
[~2022-02-22 09:45] MED LIST changes: +ALPR-164 PO; +OLAN5TAB5 PO; -OMEP-50 PO; +OMEP20CA16 PO; +ONDA-104 PO; +PROC-8 PO
== END 2022-02-22 23:59 | disposition home or self-care (01) ==
LOC: LAB 09:45
PROVIDERS: ATTEND Family Medicine
DX: E03.9 Hypothyroidism, unspecified (principal)
CPT/HCPCS: 36415; 84439; 84443

== ENCOUNTER 2024-08-07 07:34 | Day surgery (SDC) | payer MEDICARE, MEDICAID ==
[~2024-08-07] VITALS: Ht 170.2 cm; Wt 109.9 kg
[~2024-08-07 07:34] MED LIST changes: -ESTR0.5T PO; +ESTR0.5T36 PO
[2024-08-07 07:53] VITALS: BP 113/96; PULSE 96; RESP 16
[2024-08-07] MEDS ORDERED: MELO-102 PO (08:12)
[2024-08-07] MEDS ORDERED: ROSU40TA89 PO (08:14)
[2024-08-07] MEDS ORDERED: TRIA1CAP88 PO (08:15)
[2024-08-07] MEDS ORDERED: GLYC10.7 INH (08:17)
[2024-08-07] MEDS ORDERED: SENN-302 PO (08:17)
[2024-08-07] MEDS ORDERED: MULT-1085 PO (08:19)
[2024-08-07] MEDS ORDERED: OLOP2.5D12 OP (08:20)
[2024-08-07] MEDS ORDERED: DULO20CA50 PO (08:23)
[2024-08-07] MEDS ORDERED: DULO60CA59 PO (08:23)
[2024-08-07] MEDS ORDERED: MIDAZolam 1 MG/ML 5ML VIAL ONE (09:09)
[2024-08-07] MEDS ORDERED: fentaNYL/PF 50MCG/1 ML 2ML syringe ONE (09:09)
[2024-08-07] MEDS ORDERED: diphenhydrAMINE 50 mg/ml inj ONE (09:09)
[2024-08-07] MEDS ORDERED: simethicone 40mg/0.6ml oral drops 30ml ONE (09:10)
[2024-08-07 09:19] VITALS: BP 118/74; PULSE 83; RESP 17; O2SAT 98
[2024-08-07 10:00] VITALS: BP 128/68; PULSE 84; RESP 13; O2SAT 95
[2024-08-07 10:10] VITALS: BP 123/72; PULSE 85; RESP 14; O2SAT 96
[2024-08-07 10:20] VITALS: BP 117/68; PULSE 82; RESP 18; O2SAT 96
[2024-08-07 10:30] VITALS: BP 123/54; PULSE 84; RESP 15; O2SAT 95
== END 2024-08-07 10:45 | disposition home or self-care (01) ==
LOC: GI LAB 07:34
PROVIDERS: ATTEND Internal Medicine Gastroenterology
DX: K92.1 Melena (principal); D12.5 Benign neoplasm of sigmoid colon; D12.3 Benign neoplasm of transverse colon; D12.0 Benign neoplasm of cecum; K57.30 Diverticulosis of large intestine without perforation or abscess without bleeding
CPT/HCPCS: 45385; 99153; A4620; C1889; G0500; J1200; J2250; J3010; J7030; Z7512; 88305; 99152

== ENCOUNTER 2025-08-02 06:54 | Day surgery (SDC) | payer MEDICARE, MEDICAID ==
[~2025-08-02] VITALS: Ht 170.2 cm; Wt 108.9 kg
[~2025-08-02 06:54] MED LIST changes: -ALBU90AE IH; -ALPR-164 PO; -ATOR-2 PO; -CALC-854 PO; -CHOL400T14 PO; +CLON-850 PO; -CYAN100087 PO; +DULO20CA50 PO; +DULO60CA59 PO; -ESTR0.5T36 PO; +GLYC10.7 INH; +MULT-1085 PO; -MULT-785 PO; -OLAN5TAB5 PO; +OLOP2.5D12 OP; -OMEP20CA16 PO; -ONDA-104 PO; -PROC-8 PO; +ROSU40TA89 PO; +SENN-302 PO; -SERT-434 PO; +TRIA1CAP88 PO; -VITC500T PO; +simethicone 40mg/0.6ml oral drops 15ml PO ONE
[2025-08-02 07:15] VITALS: BP 133/79; PULSE 87; RESP 16; TEMP 96.7; O2SAT 94
[2025-08-02] MEDS: ringers solution, lacted 1,000 ML IV SCH (08:41)
[2025-08-02] MEDS ORDERED: propofol inj 20 ML IV ONE ×4 (10:53→11:03)
--- NOTE | 2025-08-02 10:57 | ELECTROCARDIOGRAPH REPORT ---
[facility] Test Date: 2025-08-02 Test Time: 08:37:26 Pat Name: GUILLERMINA MONTERO Department: [facility] Patient ID: [id number] Room: Gender: F Manager Core: : 1965 Requested By: AMANDA WINKLER Order Number: [id number] Reading MD: Dr. Allen Parmar Measurements Intervals Summers Rate: 79 P: 53 GA: 179 QRS: 21 QRSD: 102 T: 31 QT: 398 QTc: 457 Interpretive Statements Sinus rhythm Electronically Signed On 08-02-2025 19:57:[address] Allen Parmar Please click the below link to view image of tracing.
[2025-08-02 11:06] VITALS: BP 115/62; PULSE 86; RESP 14; O2SAT 99
[2025-08-02 11:10] VITALS: BP 114/67; PULSE 87; RESP 13; O2SAT 99
[2025-08-02 11:20] VITALS: BP 121/69; PULSE 82; RESP 19; O2SAT 100
[2025-08-02 11:30] VITALS: BP 124/82; PULSE 81; RESP 17; O2SAT 99
[2025-08-02 11:40] VITALS: BP 129/78; PULSE 78; RESP 15; O2SAT 99
== END 2025-08-02 11:56 | disposition home or self-care (01) ==
LOC: PAS 06:54
PROVIDERS: ATTEND Internal Medicine Gastroenterology
DX: Z12.11 Encounter for screening for malignant neoplasm of colon (principal); D12.2 Benign neoplasm of ascending colon; D12.4 Benign neoplasm of descending colon; K63.89 Other specified diseases of intestine; K63.5 Polyp of colon; K57.30 Diverticulosis of large intestine without perforation or abscess without bleeding; E78.5 Hyperlipidemia, unspecified; E66.9 Obesity, unspecified; J44.9 Chronic obstructive pulmonary disease, unspecified; F41.9 Anxiety disorder, unspecified; F32.A Depression, unspecified; Z86.0100 Personal history of colon polyps, unspecified; Z79.899 Other long term (current) drug therapy; Z68.37 Body mass index [BMI] 37.0-37.9, adult; Z88.0 Allergy status to penicillin
CPT/HCPCS: 45385; 82948; 88305; 93005; A4615; A4620; J2704; J7120; Z7512; Z7610